=== PATIENT | female | born 1985 | race Caucasian/White ===

== ENCOUNTER 2016-07-30 08:32 | Emergency (ER) | payer MEDICAID, OTHER ==
[2016-07-30 08:42] VITALS: BP 132/84
--- NOTE | 2016-07-30 09:32 | ED ---
GI/ HPI - HPI Summary HPI Summary: Patient presents with UTI symptoms of burning with urination, increased frequency and low back pain that began 4 days ago and have not improved with increased fluid intake. She denies fever, chills, N/V/D, but does have low back pain. She has a history of UTI and this feels like her previous symptoms. - History of Current Complaint Chief Complaint: EDUrogenitalProblems Time Seen by Provider: 07/30/16 08:57 Stated Complaint: POSS UTI Hx Obtained From: Patient Onset/Duration: Started Days Ago - 4 Timing: Constant Severity: Mild Current Severity: Moderate Pain Intensity: 3 Pain Characteristics: Dull Associated Signs and Symptoms: Positive: Back Pain - low bilateral - Allergy/Home Medications Allergies/Adverse Reactions: Allergies Allergy/AdvReac Type Severity Reaction Status Date / Time No Known Allergies Allergy Verified 03/16/16 11:43 PMH/Surg Hx/FS Hx/Imm Hx Endocrine/Hematology History: Denies: Hx Diabetes, Hx Thyroid Disease Cardiovascular History: Denies: Hx Congestive Heart Failure, Hx Deep Vein Thrombosis, Hx Hypertension , Hx Myocardial Infarction, Hx Pacemaker/ICD, Other Cardiovascular Problems/ Disorders Respiratory History: Reports: Hx Asthma - childhood asthma, recurred 3 yrs ago after of son Denies: Hx Chronic Obstructive Pulmonary Disease (COPD), Hx Lung Cancer, Hx Pneumonia, Hx Pulmonary Embolism GI History: Denies: Hx Gall Bladder Disease, Hx Gastrointestinal Bleed, Hx Ulcer, Hx Urosepsis History: Denies: Hx Kidney Stones, Hx Renal Disease Neurological History: Denies: Hx Dementia, Hx Migraine, Hx Seizures, Hx Transient Ischemic Attacks (TIA) Psychiatric History: Reports: Hx Anxiety, Hx Bipolar Disorder Denies: Hx Depression, Hx Schizophrenia - Surgical History Surgery Procedure, Year, and Place: csection x3. [place] Infectious Disease History: No Infectious Disease History: Reports: Hx of Known/Suspected MRSA - axilla 2011 Denies: Hx Clostridium Difficile, Hx Hepatitis, Hx Human Immunodeficiency Virus (HIV), Hx Shingles, Hx Tuberculosis, Traveled Outside the [place] in Last 30 Days - Family History Known Family History: Positive: None Negative: Cardiac Disease, Hypertension, Diabetes - Social History Occupation: Employed Full-time Lives: With Family Alcohol Use: None Substance Use Type: Reports: Marijuana Substance Use Comment - Amount & Last Used: RARE Smoking Status (MU): Never Smoked Tobacco Review of Systems Negative: Fever, Chills Negative: Abdominal Pain, Vomiting, Diarrhea, Nausea Positive: burning, frequency Positive: Myalgia - low back pain All Other Systems Reviewed And Are Negative: Yes Physical Exam Triage Information Reviewed: Yes Vital Signs On Initial Exam: Initial Vitals Temp Pulse Resp BP Pulse Ox 98.4 F 105 16 132/84 99 07/30/16 08:38 07/30/16 08:38 07/30/16 08:38 07/30/16 08:38 07/30/16 08:38 Vital Signs Reviewed: Yes Appearance: Positive: Well-Appearing, No Pain Distress, Obese Skin: Positive: Warm, Skin Color Reflects Adequate Perfusion, Dry, Soft Head/Face: Positive: Normal Head/Face Inspection Eyes: Positive: EOMI, VIJAY, Conjunctiva Clear ENT: Positive: Hearing grossly normal Respiratory/Lung Sounds: Positive: Breath Sounds Present Cardiovascular: Positive: RRR Abdomen Description: Positive: Nontender, Soft. Negative: CVA Tenderness (R), CVA Tenderness (L), Distended, Guarding Musculoskeletal: Positive: Strength/ROM Intact. Negative: Edema Left, Edema Right Neurological: Positive: Sensory/Motor Intact, Alert, Oriented to Person Place, Time, NV Bundle Intact Distally Psychiatric: Positive: Affect/Mood Appropriate AVPU Assessment: Alert Diagnostics - Vital Signs Vital Signs Temp Pulse Resp BP Pulse Ox 07/30/16 08:38 98.4 F 105 16 132/84 99 - Laboratory Lab Statement: Any lab studies that have been ordered have been reviewed, and results considered in the medical decision making process. GIGU Course/Dx - Diagnoses Differential Diagnoses - Female: Cystitis, Dehydration, , Renal Colic, Urinary Tract Infection Provider Diagnoses: UTI (urinary tract infection) Discharge - Discharge Plan Condition: Stable Disposition: HOME Prescriptions: Ciprofloxacin TAB* [Cipro Tab*] 500 mg PO BID #9 tab Patient Education Materials: Urinary Tract Infection in Women (ED) Referrals: David Grant NP [Primary Care Provider] - Additional Instructions: Please use medication until it is completely gone. Return to the emergency department if your symptoms worsen.
[2016-07-30 10:07] LABS: Urine Bacteria 1+ (Absent); Urine Bilirubin 1+ (Negative); Urine Glucose Negative (Negative); Urine Nitrite Positive (Negative)
[2016-07-30] MEDS ORDERED: Ciprofloxacin TAB* 500 MG PO ONE (10:16)
--- NOTE | 2016-08-01 08:16 | ED ---
Progress - Progress Note Progress Note: Pt's urine cx reveals e. coli - pt was placed on cipro - no change in medication unless sens reveals otherwise. Course/Dx - Diagnoses Provider Diagnoses: UTI (urinary tract infection) Addendum entered and electronically signed by Rachel Francisco PA 08/02/16 15:26: ED Addendum Addendum: Sens reveals cipro is effective - complete course
== END 2016-07-30 11:01 | disposition home or self-care (01) ==
LOC: ED 08:32
DX: N39.0 Urinary tract infection, site not specified (principal); M54.5 Low back pain; R30.0 Dysuria; R35.0 Frequency of micturition
CPT/HCPCS: 81003; 81015; 87077; 87086; 87186; 99282; A9270-GY

== ENCOUNTER 2016-10-11 19:56 | Emergency (ER) | payer MEDICAID ==
[2016-10-11] MEDS ORDERED: Metoclopramide IV* 5 MG/ML 2 ML VIAL IV ONE (21:18)
[2016-10-11] MEDS ORDERED: NS 0.9% 1000 ML* 2,000 ML IV ONE (21:18)
[2016-10-11] MEDS ORDERED: Ketorolac INJ* 30 MG/ML 1 ML VIAL IV ONE (21:18)
[2016-10-11] MEDS ORDERED: diPHENhydraMINE IV* 50 MG/ML 1 ml VIAL (BENADRYL) IV ONE (21:18)
[2016-10-11 21:25] LABS: Hematocrit 37 % (35-47); Hemoglobin 12.2 g/dl (12.0-16.0); Mean Corpuscular HGB Conc 33 g/dl (31-36); Mean Corpuscular Hemoglobin 29 pg (27-31); Mean Corpuscular Volume 88 fL (80-97); Mean Platelet Volume 9 um3 (7.4-10.4); Red Blood Count 4.25 10^6/ul (4.0-5.4); Red Cell Distribution Width 14 % (10.5-15); White Blood Count 7.7 10^3/ul (3.5-10.8)
[2016-10-11 21:40] LABS: Albumin 3.9 g/dL (3.2-5.2); BUN/Creatinine Ratio 17.7 (8-20); Calcium 8.5 mg/dL (8.6-10.3); EGFR African American 145.4 (>60); Globulin 2.4 g/dL (2-4); Potassium 3.7 mmol/L (3.5-5.0); Total Bilirubin 0.2 mg/dL (0.2-1.0); Total Protein 6.3 g/dL (6.4-8.9)
--- NOTE | 2016-10-11 22:09 | ED ---
Headache - HPI Summary HPI Summary: Patient presents with a headache that is like her typical migraine. She awoke with the pain behind her left eye and ibuprofen and rest did not make it better. She has not had a migraine in awhile so she doesn't have her sumatriptan anymore. She feels nauseous but has been able to eat and drink today. She denies fever, chills, neck stiffness or pain. - History Of Current Complaint Chief Complaint: EDHeadache Stated Complaint: MIGRAINE/NAUSEA/PRESSURE BEHIND LEFT EYE Time Seen by Provider: 10/11/16 20:34 Hx Obtained From: Patient Hx Last Menstrual Period: 04/02/16 Onset/Duration: Gradual Onset Initially Headache Was: Mild Currently Pain Is: Moderate Timing: Constant Character: Pressure, Typical Headache, Migraine Location of Headache: Temporal - left Aggravating Factor: Bright Lights Allevating Factors: Nothing Associated Signs And Symptoms: Nausea Related History: Similar Episode/DX As: - history of migraines - Allergies/Home Medications Allergies/Adverse Reactions: Allergies Allergy/AdvReac Type Severity Reaction Status Date / Time No Known Allergies Allergy Verified 10/11/16 20:23 PMH/Surg Hx/FS Hx/Imm Hx Endocrine/Hematology History: Denies: Hx Diabetes, Hx Thyroid Disease Cardiovascular History: Denies: Hx Congestive Heart Failure, Hx Deep Vein Thrombosis, Hx Hypertension , Hx Myocardial Infarction, Hx Pacemaker/ICD, Other Cardiovascular Problems/ Disorders Respiratory History: Reports: Hx Asthma - childhood asthma, recurred 3 yrs ago after of son Denies: Hx Chronic Obstructive Pulmonary Disease (COPD), Hx Lung Cancer, Hx Pneumonia, Hx Pulmonary Embolism GI History: Denies: Hx Gall Bladder Disease, Hx Gastrointestinal Bleed, Hx Ulcer, Hx Urosepsis History: Denies: Hx Kidney Stones, Hx Renal Disease Neurological History: Reports: Hx Migraine Denies: Hx Dementia, Hx Seizures, Hx Transient Ischemic Attacks (TIA) Psychiatric History: Reports: Hx Anxiety, Hx Bipolar Disorder Denies: Hx Depression, Hx Schizophrenia - Surgical History Surgery Procedure, Year, and Place: csection x3. [place] Infectious Disease History: Yes Infectious Disease History: Reports: Hx of Known/Suspected MRSA - axilla 2011 Denies: Hx Clostridium Difficile, Hx Hepatitis, Hx Human Immunodeficiency Virus (HIV), Hx Shingles, Hx Tuberculosis, Traveled Outside the [place] in Last 30 Days - Family History Known Family History: Positive: None Negative: Cardiac Disease, Hypertension, Diabetes - Social History Occupation: Employed Full-time Lives: With Family Alcohol Use: None Substance Use Type: Reports: None, Marijuana Substance Use Comment - Amount & Last Used: RARE Smoking Status (MU): Light Every Day Tobacco Smoker Cessation Counseling: Patient Advised to Stop Review of Systems Negative: Fever, Chills Positive: Photophobia. Negative: Blurred Vision, Diplopia Positive: Nausea. Negative: Vomiting Positive: Headache. Negative: Weakness, Paresthesia, Numbness All Other Systems Reviewed And Are Negative: Yes Physical Exam Triage Information Reviewed: Yes Vital Signs On Initial Exam: Initial Vitals Temp Pulse Resp BP Pulse Ox 97.6 F 88 20 114/71 100 10/11/16 20:20 10/11/16 20:20 10/11/16 20:20 10/11/16 20:20 10/11/16 20:20 Vital Signs Reviewed: Yes Appearance: Positive: Well-Appearing, Pain Distress, Obese Skin: Positive: Warm, Skin Color Reflects Adequate Perfusion, Dry, Soft Head/Face: Positive: Normal Head/Face Inspection Eyes: Positive: EOMI, VIJAY, Conjunctiva Clear ENT: Positive: Hearing grossly normal, Pharynx normal Neck: Positive: Supple, Nontender, No Lymphadenopathy Respiratory/Lung Sounds: Positive: Clear to Auscultation, Breath Sounds Present Cardiovascular: Positive: RRR Abdomen Description: Positive: Nontender, Soft Bowel Sounds: Positive: Present Musculoskeletal: Negative: Edema Left, Edema Right Neurological: Positive: Sensory/Motor Intact, Alert, Oriented to Person Place, Time, CN Intact II-III, NV Bundle Intact Distally Psychiatric: Positive: Affect/Mood Appropriate AVPU Assessment: Alert - Ivel Coma Scale Coma Scale Total: 15 Diagnostics - Vital Signs Vital Signs Temp Pulse Resp BP Pulse Ox 10/11/16 20:51 97.9 F 78 16 116/69 98 10/11/16 20:20 97.6 F 88 20 114/71 100 - Laboratory Lab Results: Lab Results 10/11/16 10/11/16 Range/Units 21:15 21:15 WBC 7.7 (3.5-10.8) 10^3/ul RBC 4.25 (4.0-5.4) 10^6/ul Hgb 12.2 (12.0-16.0) g/dl Hct 37 (35-47) % MCV 88 (80-97) fL MCH 29 (27-31) pg MCHC 33 (31-36) g/dl RDW 14 (10.5-15) % Plt Count 269 (150-450) 10^3/ul MPV 9 (7.4-10.4) um3 Neut % (Auto) 47.1 (38-83) % Lymph % (Auto) 36.5 (25-47) % [place] % (Auto) 11.4 H (1-9) % Eos % (Auto) 4.0 (0-6) % Baso % (Auto) 1.0 (0-2) % Absolute Neuts (auto) 3.6 (1.5-7.7) 10^3/ul Absolute Lymphs (auto) 2.8 (1.0-4.8) 10^3/ul Absolute Monos (auto) 0.9 H (0-0.8) 10^3/ul Absolute Eos (auto) 0.3 (0-0.6) 10^3/ul Absolute Basos (auto) 0.1 (0-0.2) 10^3/ul Absolute Nucleated RBC 0.01 10^3/ul Nucleated RBC % 0.1 Sodium 138 (133-145) mmol/L Potassium 3.7 (3.5-5.0) mmol/L Chloride 108 (101-111) mmol/L Carbon Dioxide 26 (22-32) mmol/L Anion Gap 4 (2-11) mmol/L BUN 11 (6-24) mg/dL Creatinine 0.62 (0.51-0.95) mg/dL Est GFR ( Amer) 145.4 (>60) Est GFR (Non-Af Amer) 113.0 (>60) BUN/Creatinine Ratio 17.7 (8-20) Glucose 102 H (70-100) mg/dL Calcium 8.5 L (8.6-10.3) mg/dL Total Bilirubin 0.20 (0.2-1.0) mg/dL AST 9 L (13-39) U/L ALT 6 L (7-52) U/L Alkaline Phosphatase 69 (34-104) U/L Total Protein 6.3 L (6.4-8.9) g/dL Albumin 3.9 (3.2-5.2) g/dL Globulin 2.4 (2-4) g/dL Albumin/Globulin Ratio 1.6 (1-3) Result Diagrams: 10/11/16 21:15 10/11/16 21:15 Lab Statement: Any lab studies that have been ordered have been reviewed, and results considered in the medical decision making process. Re-Evaluation - Re-Evaluation First Eval Re-Evaluation Time: 22:25 Change: Improved Comment: Patient is feeling better and will try to eat some food and drink. Headache Course/Dx - Diagnoses Differential Diagnosis/HQI/PQRI: TIA, Epidural Hematoma, Migraine, Sinus Headache, Tension Headache, Viral Syndrome Provider Diagnoses: Migraine Discharge - Discharge Plan Condition: Stable Disposition: HOME Patient Education Materials: Migraine Headache (ED) Referrals: aDvid Grant NP [Primary Care Provider] - Additional Instructions: Please follow-up with your primary care provider to discuss re-establishing a treatment plan for your migraines. Return to the emergency department if symptoms worsen.
[2016-10-11] MEDS ORDERED: SUMAtriptan TAB* 100 MG PO ONE (22:51)
[2016-10-11 23:09] VITALS: BP 92/49
== END 2016-10-11 23:24 | disposition home or self-care (01) ==
LOC: ED 19:56
DX: G43.909 Migraine, unspecified, not intractable, without status migrainosus (principal); R11.0 Nausea; H53.149 Visual discomfort, unspecified
CPT/HCPCS: 36415; 80053; 85025; 96374; 96375; 99283; A9270-GY; J1200; J1885

== ENCOUNTER 2016-10-16 08:08 | Emergency (ER) | payer MEDICAID ==
[2016-10-16 08:17] VITALS: BP 144/91
[2016-10-16] MEDS ORDERED: Ibuprofen TAB* 800 MG PO ONE (08:51)
--- NOTE | 2016-10-16 08:56 | ED ---
HPI Cardiac - HPI Summary HPI Summary: Pt here w/ URI sx x 2+ days. Started as rhinorrhea 2 days ago then yesterday had sinus congestion - tried Sudafed w/o relief. PND has triggered her to cough - productive w/ blood tinged sputum and pt reports pain in Lt upper chest going into back w/ deep breath. She has h/o asthma - has used her albuterol HFA and has a neb at home - does not feel she needs a breathing tx at this time as she' s breathing well. Smokes a few cigarettes a day and marijuana daily. Lt ear pain and pressure as well. Denies fever, chills, N/V/D, neck pain, rash. - History of Current Complaint Chief Complaint: EDUpperRespComplaint Stated Complaint: COUGHING UP BLOOD/CHEST CONGESTION Time Seen by Provider: 10/16/16 08:41 Hx Obtained From: Patient Pain Intensity: 6 - Allergy/Home Medications Allergies/Adverse Reactions: Allergies Allergy/AdvReac Type Severity Reaction Status Date / Time No Known Allergies Allergy Verified 10/11/16 20:23 PMH/Surg Hx/FS Hx/Imm Hx Previously Healthy: Yes Endocrine/Hematology History: Denies: Hx Anticoagulant Therapy, Hx Blood Disorders, Hx Diabetes, Hx Thyroid Disease, Hx Unexplained Bleeding Cardiovascular History: Denies: Hx Congestive Heart Failure, Hx Deep Vein Thrombosis, Hx Hypertension , Hx Myocardial Infarction, Hx Pacemaker/ICD, Other Cardiovascular Problems/ Disorders Respiratory History: Reports: Hx Asthma - childhood asthma, recurred 3 yrs ago after of son Denies: Hx Chronic Obstructive Pulmonary Disease (COPD), Hx Lung Cancer, Hx Pneumonia, Hx Pulmonary Embolism GI History: Denies: Hx Gall Bladder Disease, Hx Gastrointestinal Bleed, Hx Ulcer, Hx Urosepsis History: Reports: Other Problems/Disorders - Essure in place Denies: Hx Kidney Stones, Hx Renal Disease Neurological History: Reports: Hx Migraine Denies: Hx Dementia, Hx Seizures, Hx Transient Ischemic Attacks (TIA) Psychiatric History: Reports: Hx Anxiety, Hx Bipolar Disorder Denies: Hx Depression, Hx Schizophrenia - Surgical History Surgery Procedure, Year, and Place: csection x3. [place] Infectious Disease History: No Infectious Disease History: Reports: Hx of Known/Suspected MRSA - axilla 2011 Denies: Hx Clostridium Difficile, Hx Hepatitis, Hx Human Immunodeficiency Virus (HIV), Hx Shingles, Hx Tuberculosis, Traveled Outside the [place] in Last 30 Days - Family History Known Family History: Positive: Diabetes, Other - cancer Negative: Cardiac Disease, Hypertension - Social History Occupation: Unemployed Lives: With Family - son Alcohol Use: None Alcohol Amount: "I don't like ETOH" Hx Substance Use: Yes Substance Use Type: Reports: Marijuana - daily Substance Use Comment - Amount & Last Used: RARE Hx Tobacco Use: Yes Smoking Status (MU): Current Every Day Smoker Amount Used/How Often: "a few a day" Review of Systems Negative: Fever, Chills Negative: Drainage, Erythema ENT: Other - see HPI Positive: Ear Ache, Nasal Discharge Positive: Chest Pain - see HPI Positive: Cough - see HPI. Negative: Shortness Of Breath Gastrointestinal: Negative Positive: no symptoms reported Musculoskeletal: Negative Negative: Rash Neurological: Negative Psychological: Normal All Other Systems Reviewed And Are Negative: Yes Physical Exam Triage Information Reviewed: Yes Vital Signs On Initial Exam: Initial Vitals Temp Pulse Resp BP Pulse Ox 98.6 F 103 16 144/91 99 10/16/16 08:15 10/16/16 08:15 10/16/16 08:15 10/16/16 08:15 10/16/16 08:15 Vital Signs Reviewed: Yes Appearance: Positive: Well-Appearing - appears mildly fatigued, No Pain Distress Skin: Positive: Warm, Dry Head/Face: Positive: Normal Head/Face Inspection - sinuses NTTP Eyes: Positive: Normal, EOMI. Negative: Conjunctiva Inflammed, Discharge ENT: Positive: Hearing grossly normal, Pharyngeal erythema - cobblestoning - no edema, no claudia bleeding, Nasal congestion, TM red - Lt TM w/ injection and air bubble - no hyperemia, no otorrhea, EAC clear - NTTP, Tonsillar swelling - +2. Negative: Nasal drainage, Tonsillar exudate, Muffled/hoarse voice Neck: Positive: Supple, Nontender, No Lymphadenopathy Respiratory/Lung Sounds: Positive: Breath Sounds Present, Rales - faint over Lt upper anterior chest wall. Negative: Rhonchi, Stridor, Wheezes Cardiovascular: Positive: Normal, Pulses are Symmetrical in both Upper and Lower Extremities, S1, S2. Negative: Murmur, Rub Abdomen Description: Positive: Soft Bowel Sounds: Positive: Present Musculoskeletal: Positive: Normal, Strength/ROM Intact Neurological: Positive: Normal, Sensory/Motor Intact, Alert, Oriented to Person Place, Time, CN Intact II-III Psychiatric: Positive: Normal - concerned Diagnostics - Vital Signs Vital Signs Temp Pulse Resp BP Pulse Ox 10/16/16 08:17 98.6 F 99 16 144/91 100 10/16/16 08:15 98.6 F 103 16 144/91 99 - Laboratory Lab Statement: Any lab studies that have been ordered have been reviewed, and results considered in the medical decision making process. Disposition - Diagnoses Provider Diagnoses: URI with cough and congestion, Bronchitis Discharge - Discharge Plan Condition: Stable Disposition: HOME Patient Education Materials: Upper Respiratory Infection (ED), Acute Bronchitis (ED) Referrals: David Grant, [employer] [Primary Care Provider] - Additional Instructions: You appear to have a viral URI. However with your history of smoking and asthma , an antibiotic has been prescribed to cover bacteria. Continue to use conservative therapies (See below) and follow-up with PCP if symptoms persist beyond 7-14 days. You were also found to have possible COPD on your CXR - this can be caused by smoking and improved by smoking cessation. It is very important that you follow-up with your PCP to further discuss. *If you have difficulty breathing, back pain, bloody cough, shortness of breath , return to ED Nasal wash (netti pot) & throat gargle 2 x day with 8 ounces of warm water + 1/ 4 teaspoon of salt Drink 60+ ounces of water daily Sleep 8+ hours per night Avoid Dairy and sugar Hot herbal/decaf tea with lemon & honey Chicken broth (preferably organic, free range chicken) Humidifier in house, but especially near bed at night Try a facial steam with or without eucalyptus essential oil Vicks vapor rub Cough drops Ibuprofen alternating with acetaminophen for pain, fever May continue Sudafed for decongestion Albuterol HFA and nebulizer as needed Anything you can do to stop smoking (both cigarettes and marijuana) will improve your symptoms and reduce recovery time Consider taking Vitamin D3 5,000iu and Vitamin C 1,000mg every day during illness Start probiotics in between and after completion of antibiotics (ie. Yogurt and/ or capsules of L. acidophilus, L. bifidus, L. casei, etc - make sure to get these from the refrigerated food section as they are live and active cultures)
--- NOTE | 2016-10-16 09:34 | RAD ---
INDICATION: Hemoptysis. Chest congestion. History of tobacco use. COMPARISON: April 05, [address] March 01, 2016 chest radiograph TECHNIQUE: Dual energy PA and routine lateral views of the chest were obtained. REPORT: Mildly elevated lung volumes and minimal prominence of interstitial markings. No alveolar consolidation, focal pulmonary lesion, pleural effusion, pneumothorax. The heart, pulmonary vasculature, and mediastinal contours are unremarkable. Unremarkable osseous structures. IMPRESSION: Potential obstructive lung disease. No evidence for pneumonia.
== END 2016-10-16 10:08 | disposition home or self-care (01) ==
LOC: ED 08:08
DX: J06.9 Acute upper respiratory infection, unspecified (principal); J40 Bronchitis, not specified as acute or chronic; F17.210 Nicotine dependence, cigarettes, uncomplicated; J45.909 Unspecified asthma, uncomplicated; F31.9 Bipolar disorder, unspecified; F41.9 Anxiety disorder, unspecified
CPT/HCPCS: 71020; 99281; A9270-GY

== ENCOUNTER 2016-10-18 08:34 | Emergency (ER) | payer MEDICAID ==
[2016-10-18] MEDS ORDERED: Albuterol/Ipratropium NEB.SOL* Albuterol 2.5 MG/Ipratropium 0.5 MG 3 ML INH ONE (09:19)
[2016-10-18] MEDS ORDERED: methylPREDNISolone SOD SUCC* 125 MG 2 ML VIAL IM ONE (09:20)
--- NOTE | 2016-10-18 09:50 | ED ---
HPI Cardiac - HPI Summary HPI Summary: Pt here w/ worsening of breathing sx - seen 2 days ago and dx'd w/ bronchitis. CXR was clear. Her productive cough is more clear but she reports chest tightness and difficulty moving phlegm despite taking zithromax and Robitussin DM. She has been using her albuterol HFA as well as albuterol nebulizer treatments as she has asthma and gets bronchitis 2 x year - spring and fall. Her Lt ear pain persists as well despite trying Sudafed and NSAID's. Denies fever, chills, N/V/D/. Has had steroids in the past and feels these would be helpful now. She follows w/ pulmonology through [facility]. - History of Current Complaint Chief Complaint: EDUpperRespComplaint Stated Complaint: CHEST CONGESTION/DIFF BREATHING Time Seen by Provider: 10/18/16 09:11 Hx Obtained From: Patient Pain Intensity: 3 - Allergy/Home Medications Allergies/Adverse Reactions: Allergies Allergy/AdvReac Type Severity Reaction Status Date / Time No Known Allergies Allergy Verified 10/11/16 20:23 PMH/Surg Hx/FS Hx/Imm Hx Previously Healthy: No - bronchitis dx'd 2 days ago Endocrine/Hematology History: Denies: Hx Anticoagulant Therapy, Hx Blood Disorders, Hx Diabetes, Hx Thyroid Disease, Hx Unexplained Bleeding Cardiovascular History: Denies: Hx Congestive Heart Failure, Hx Deep Vein Thrombosis, Hx Hypertension , Hx Myocardial Infarction, Hx Pacemaker/ICD, Other Cardiovascular Problems/ Disorders Respiratory History: Reports: Hx Asthma - childhood asthma, recurred 3 yrs ago after of son, Hx Chronic Obstructive Pulmonary Disease (COPD) - "bronchitis 2 x a year" + smoking and CXR + obstructive dz Denies: Hx Lung Cancer, Hx Pneumonia, Hx Pulmonary Embolism GI History: Denies: Hx Gall Bladder Disease, Hx Gastrointestinal Bleed, Hx Ulcer, Hx Urosepsis History: Reports: Other Problems/Disorders - Essure in place Denies: Hx Kidney Stones, Hx Renal Disease Neurological History: Reports: Hx Migraine Denies: Hx Dementia, Hx Seizures, Hx Transient Ischemic Attacks (TIA) Psychiatric History: Reports: Hx Anxiety, Hx Bipolar Disorder Denies: Hx Depression, Hx Schizophrenia - Surgical History Surgery Procedure, Year, and Place: csection x3. [place] Infectious Disease History: Yes Infectious Disease History: Reports: Hx of Known/Suspected MRSA - axilla 2011 Denies: Hx Clostridium Difficile, Hx Hepatitis, Hx Human Immunodeficiency Virus (HIV), Hx Shingles, Hx Tuberculosis, Traveled Outside the [place] in Last 30 Days - Family History Known Family History: Positive: Diabetes, Other - cancer Negative: Cardiac Disease, Hypertension - Social History Occupation: Unemployed Lives: With Family Alcohol Use: None Alcohol Amount: "I don't like ETOH" Hx Substance Use: Yes Substance Use Type: Reports: Marijuana Substance Use Comment - Amount & Last Used: RARE Hx Tobacco Use: Yes Smoking Status (MU): Current Every Day Smoker Amount Used/How Often: "a few a day" Review of Systems Negative: Fever, Chills Negative: Drainage, Erythema Positive: Ear Ache - see HPI Negative: Chest Pain Respiratory: Other - se HPI Gastrointestinal: Negative Positive: no symptoms reported Musculoskeletal: Negative Skin: Negative Neurological: Negative Psychological: Normal All Other Systems Reviewed And Are Negative: Yes Physical Exam Triage Information Reviewed: Yes Vital Signs On Initial Exam: Initial Vitals Temp Pulse Resp BP Pulse Ox 98.3 F 104 18 126/75 98 10/18/16 08:49 10/18/16 08:49 10/18/16 08:49 10/18/16 08:49 10/18/16 08:49 Vital Signs Reviewed: Yes Appearance: Positive: No Pain Distress - Appears mildly fatigued, coughing easily w/ speaking, Obese Skin: Positive: Warm, Dry Head/Face: Positive: Normal Head/Face Inspection Eyes: Positive: Normal, EOMI, Conjunctiva Clear. Negative: Conjunctiva Inflammed, Discharge ENT: Positive: Pharynx normal - cobblestoning, Nasal congestion - mild, Other - Lt TM w/ less erythema than 2 days ago but fluid appears to be building; Rt TM clear and flat. Negative: Nasal drainage, Tonsillar swelling, Tonsillar exudate Neck: Positive: Supple, Nontender Respiratory/Lung Sounds: Positive: Breath Sounds Present - distant, Wheezes - faint. Negative: Rales, Rhonchi, Stridor Cardiovascular: Positive: Normal, Tachycardia - mild, S1, S2. Negative: Murmur , Rub Bowel Sounds: Positive: Present Musculoskeletal: Positive: Normal, Strength/ROM Intact Neurological: Positive: Normal, Sensory/Motor Intact, Alert, Oriented to Person Place, Time, CN Intact II-III Psychiatric: Positive: Normal - concerned but pleasant Diagnostics - Vital Signs Vital Signs Temp Pulse Resp BP Pulse Ox 10/18/16 09:29 68 15 98 10/18/16 08:49 98.3 F 104 18 126/75 98 - Laboratory Lab Statement: Any lab studies that have been ordered have been reviewed, and results considered in the medical decision making process. Re-Evaluation - Re-Evaluation First Eval Change: Improved - breath sounds are easier to here - still wheezing, but is somewhat less - pt reports improved sx Disposition - Course Course Of Treatment: Advised pt to f/u w/ pulmonology this week to discuss further monitoring and treatment from this episode of asthma and COPD exacerbation. She reports a h/o bronchitis 2 x year, has asthma and CXR reveals obstructive findings - she was not aware she could have COPD and does not use any other treatments other than albuterol. Discussed that she may benefit from tx of COPD to better control her sx (ie. combivent, etc). 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 Reviewed danger s/sx of when to return to ED. - Diagnoses Provider Diagnoses: Acute exacerbation of COPD with asthma Discharge - Discharge Plan Condition: Stable Disposition: HOME Prescriptions: predniSONE TAB* [Deltasone TAB*] 60 mg PO DAILY #5 tab Patient Education Materials: Asthma (ED), COPD (Chronic Obstructive Pulmonary Disease) (ED) Referrals: Janice Guerrero MD [Medical Doctor] - Additional Instructions: Takes medications as directed. Follow-up with 8th grade teacher this week. Call tomorrow for appointment. Avoid triggers (ie, smoking, candles, air fresheners, perfumes, etc) *If you develop shortness of breath, difficulty breathing, intractable fever despite ibuprofen and acetaminophen, return to ED.
[2016-10-18 10:54] VITALS: BP 124/79
== END 2016-10-18 10:15 | disposition home or self-care (01) ==
LOC: ED 08:34
DX: J44.1 Chronic obstructive pulmonary disease with (acute) exacerbation (principal); H92.09 Otalgia, unspecified ear; F17.210 Nicotine dependence, cigarettes, uncomplicated; J45.998 Other asthma
CPT/HCPCS: 94640; 96372; 99282; A9270-GY; J2930

== ENCOUNTER 2017-02-12 12:21 | Emergency (ER) | payer OTHER ==
--- NOTE | 2017-02-12 12:39 | UC ---
Complaint Female HPI - HPI Summary HPI Summary: pain and burning with urination malodorus urine, no fevers chills nausea vomiting or back pain - History Of Current Complaint Chief Complaint: UCGU Stated Complaint: URINARY Time Seen by Provider: 02/12/17 12:28 Hx Obtained From: Patient Hx Last Menstrual Period: 04/02/16 ?: No Onset/Duration: Gradual Onset, Lasting Days, Still Present Timing: Constant Severity Initially: Mild Severity Currently: Moderate Pain Intensity: 4 Pain Scale Used: 0-10 Numeric Character: Burning Aggravating Factor(s): Urination Alleviating Factor(s): Nothing Associated Signs And Symptoms: Positive: Negative - Allergies/Home Medications Allergies/Adverse Reactions: Allergies Allergy/AdvReac Type Severity Reaction Status Date / Time No Known Allergies Allergy Verified 10/11/16 20:23 PMH/Surg Hx/FS Hx/Imm Hx Previously Healthy: No Psychological History: Anxiety, Bipolar Disorder, Post Traumatic Stress Disorder Other History Of: Negative For: HIV, Hepatitis B, Hepatitis C, Anticoagulant Therapy - Surgical History Surgical History: Yes Surgery Procedure, Year, and Place: csection x3. [place] - Family History Known Family History: Positive: Diabetes, Other - cancer Negative: Cardiac Disease, Hypertension - Social History Occupation: Unemployed Lives: With Family Alcohol Use: None Alcohol Amount: "I don't like ETOH" Substance Use Type: Marijuana Substance Use Comment - Amount & Last Used: RARE Smoking Status (MU): Current Every Day Smoker Amount Used/How Often: "a few a day" Household Exposure Type: Cigarettes Review of Systems Constitutional: Negative Skin: Negative Eyes: Negative ENT: Negative Respiratory: Negative Cardiovascular: Negative Gastrointestinal: Negative Genitourinary: Dysuria, Frequency, Urgency Motor: Negative Neurovascular: Negative Musculoskeletal: Negative Neurological: Negative Psychological: Anxious - denies HI/SI All Other Systems Reviewed And Are Negative: Yes Physical Exam Triage Information Reviewed: Yes Appearance: Well-Appearing, No Pain Distress, Well-Nourished Vital Signs Reviewed: Yes Eye Exam: Normal Eyes: Positive: Conjunctiva Clear ENT Exam: Normal ENT: Positive: Normal ENT inspection, Hearing grossly normal. Negative: Nasal congestion, Nasal drainage, Trismus, Muffled/hoarse voice Dental Exam: Normal Neck exam: Normal Neck: Positive: Supple, Nontender Respiratory Exam: Normal Respiratory: Positive: Chest non-tender, No respiratory distress, No accessory muscle use Cardiovascular Exam: Normal Cardiovascular: Positive: RRR, Pulses Normal, Brisk Capillary Refill Abdominal Exam: Normal Abdomen Description: Positive: Nontender, No Organomegaly, Soft. Negative: CVA Tenderness (R), CVA Tenderness (L) Bowel Sounds: Positive: Present Musculoskeletal Exam: Normal Musculoskeletal: Positive: Strength Intact, ROM Intact, No Edema Neurological Exam: Normal Neurological: Positive: Alert, Muscle Tone Normal Psychological Exam: Normal Psychological: Positive: Normal Response To Family Skin Exam: Normal Diagnostics - Laboratory Diagnostic Studies Completed/Ordered: ua +leukoesterace, + nitrites Complaint Female Dx - Course Course Of Treatment: increase fluids, bactrim, pyridium, vistaril follow with mental health clinic as planned, follow with pcp - Differential Dx/Diagnosis Differential Diagnosis/HQI/PQRI: , Renal Colic, Ureteral Stone, Urinary Tract Infection Provider Diagnoses: Uti, Anxiety Discharge - Discharge Plan Condition: Stable Disposition: HOME Prescriptions: Fluconazole 150 MG (NF) [Diflucan 150 mg (NF)] 150 mg PO ONCE #2 tab Phenazopyridine TAB* [Pyridium 100 mg TAB*] 100 mg PO TID #9 tab Sulfamethox/Trimethoprim DS* [Bactrim DS 800/160 TAB*] 1 tab PO BID #20 tab hydrOXYzine PAMOATE CAP* [Vistaril CAP*] 25 - 50 mg PO QID PRN #30 cap PRN Reason: anxiety Patient Education Materials: Phenazopyridine (By mouth), Urinary Tract Infection in Women (ED), Anxiety (ED) Referrals: David Grant, STATE PATROL OFFICER [Nurse Practitioner] - 2 Weeks Additional Instructions: Follow at [facility] as planned
[2017-02-12 12:43] VITALS: BP 118/75
== END 2017-02-12 13:06 | disposition home or self-care (01) ==
LOC: UCCORT 12:21
DX: N39.0 Urinary tract infection, site not specified (principal); F41.9 Anxiety disorder, unspecified; F31.9 Bipolar disorder, unspecified; F43.10 Post-traumatic stress disorder, unspecified; F12.90 Cannabis use, unspecified, uncomplicated; F17.210 Nicotine dependence, cigarettes, uncomplicated
CPT/HCPCS: 81003; 87077; 87086; 87186; 99212; G0463

== ENCOUNTER 2017-04-11 12:27 | Emergency (ER) | payer OTHER ==
[2017-04-11] MEDS ORDERED: Ipratropium 0.5MG/2.5ML NEB* 0.5 MG/2.5 ML NEB.SOLN INH ONE (12:50)
[2017-04-11] MEDS ORDERED: Albuterol 2.5 MG/3 ML NEB.SOL* (0.083%) INH ONE (12:50)
--- NOTE | 2017-04-11 12:52 | UC ---
Respiratory Complaint HPI - HPI Summary HPI Summary: 32 yo female was seen 3 days ago at [facility] er for wheezing started on 60 mg prednisone/.day and olga has duo nebs at home also has albuterol mdi state she has had astjma since being a kid no hospitalizations states she has never been hospitalized for asthma states she often requires prolonged high dose steroids for weeks followed by a prolonged taper smokes 1-2 cigs a day also complains she has been unable to remove her tampon - History of Current Complaint Chief Complaint: UCRespiratory Stated Complaint: SOB WHEEZING Time Seen by Provider: 04/11/17 12:37 Hx Obtained From: Patient Hx Last Menstrual Period: 04/04/17 Onset/Duration: Gradual Onset, Lasting Days Timing: Constant Severity Initially: Moderate Severity Currently: Moderate Pain Intensity: 3 Pain Scale Used: 0-10 Numeric Character: Cough: Productive Aggravating Factors: Exertion, Deep Breaths Alleviating Factors: Bronchodilator Associated Signs And Symptoms: Positive: Dyspnea Related History: Similar Episode/Dx as: - bronchitis - Allergies/Home Medications Allergies/Adverse Reactions: Allergies Allergy/AdvReac Type Severity Reaction Status Date / Time No Known Allergies Allergy Verified 10/11/16 20:23 Home Medications: Home Medications Azithromycin TAB* [Zithromax TAB (Doug-TESFAYE) 250 mg #6 tabs] 250 mg PO DAILY [History Confirmed 04/11/17] PMH/Surg Hx/FS Hx/Imm Hx Respiratory History: Asthma, Bronchitis Other History Of: Negative For: HIV, Hepatitis B, Hepatitis C, Anticoagulant Therapy - Surgical History Surgical History: Yes Surgery Procedure, Year, and Place: csection x3. [place] - Family History Known Family History: Positive: Diabetes, Other - cancer Negative: Cardiac Disease, Hypertension - Social History Alcohol Use: None Alcohol Amount: "I don't like ETOH" Substance Use Type: Marijuana Substance Use Comment - Amount & Last Used: RARE Smoking Status (MU): Current Every Day Smoker Amount Used/How Often: "a few a day" Household Exposure Type: Cigarettes Review of Systems Constitutional: Negative Skin: Negative Eyes: Negative ENT: Negative Respiratory: Shortness Of Breath, Cough Cardiovascular: Negative Gastrointestinal: Negative Genitourinary: Negative Motor: Negative Neurovascular: Negative Musculoskeletal: Negative Neurological: Negative Psychological: Negative Is Patient Immunocompromised?: No All Other Systems Reviewed And Are Negative: Yes Physical Exam Triage Information Reviewed: Yes Appearance: Well-Appearing, No Pain Distress, Well-Nourished Vital Signs: Initial Vital Signs Temp 98.3 F 04/11/17 12:33 Pulse 89 04/11/17 12:33 Resp 16 04/11/17 12:33 Pulse Ox 100 04/11/17 12:33 Vital Signs Reviewed: Yes Eyes: Positive: Conjunctiva Clear ENT: Positive: Hearing grossly normal. Negative: Nasal congestion, Nasal drainage, Tonsillar exudate, Trismus, Muffled/hoarse voice Neck: Positive: Supple, Nontender Respiratory: Positive: No respiratory distress, No accessory muscle use, Wheezing. Negative: Decreased breath sounds, Accessory muscle use Cardiovascular: Positive: RRR, No Murmur Musculoskeletal: Positive: ROM Intact, No Edema Neurological: Positive: Alert Psychological Exam: Normal Skin Exam: Normal UC Diagnostic Evaluation - Laboratory O2 Sat by Pulse Oximetry: 100 - normal/not hyhpoxic - Radiology Xray Interpretation: No Acute Changes Radiology Interpretation Completed By: Radiologist Re-Evaluation - Re-Evaluation First Eval Re-Evaluation Time: 13:56 Change: Improved Comment: still wheezing Respiratory Course/Dx - Course Course Of Treatment: tampon removed by Lacey Serrano MICROPHONE OPERATOR - Differential Dx/Diagnosis Provider Diagnoses: acute bronchitis with bronchospasm. retained tampon Discharge - Discharge Plan Condition: Stable Disposition: HOME Prescriptions: Amoxicillin PO (*) [Amoxicillin 875 MG (*)] 875 mg PO BID #14 tab Fluconazole 150 MG (NF) [Diflucan 150 mg (NF)] 150 mg PO ONCE #2 tab Prednisone 60 mg PO DAILY #9 tab Patient Education Materials: Acute Bronchitis (ED), Bronchospasm (ED) Forms: *Work Release Referrals: Non Staff,Doctor [Primary Care Provider] -
--- NOTE | 2017-04-11 13:08 | RAD ---
HISTORY: Cough, wheezing COMPARISONS: October 16, 2016 VIEWS: 4: Frontal dual-energy and lateral views of the chest. FINDINGS: CARDIOMEDIASTINAL SILHOUETTE: The cardiomediastinal silhouette is normal. SIM: The sim are normal. PLEURA: The costophrenic angles are sharp. No pleural abnormalities are noted. LUNG PARENCHYMA: The lungs are clear. ABDOMEN: The upper abdomen is clear. There is no subphrenic gas. BONES AND SOFT TISSUES: No bone or soft tissue abnormalities are noted. OTHER: None. IMPRESSION: NO ACTIVE CARDIOPULMONARY DISEASE.
[2017-04-11] MEDS ORDERED: methylPREDNISolone 125 MG* 2 ML VIAL IM ONE (13:51)
== END 2017-04-11 14:13 | disposition home or self-care (01) ==
LOC: UCEAST 12:27
DX: J20.9 Acute bronchitis, unspecified (principal); T19.2XXA Foreign body in vulva and vagina, initial encounter; X58.XXXA Exposure to other specified factors, initial encounter; Y93.9 Activity, unspecified; Y92.9 Unspecified place or not applicable; Z72.0 Tobacco use
CPT/HCPCS: 71020; 96372; 99212; G0463; J2930; J7644

== ENCOUNTER 2017-07-21 10:34 | Emergency (ER) | payer OTHER ==
[2017-07-21 10:48] VITALS: BP 135/83
[2017-07-21] MEDS ORDERED: Albuterol/Ipratropium NEB.SOL* Albuterol 2.5 MG/Ipratropium 0.5 MG 3 ML INH ONE (10:56)
--- OUTSIDE RECORDS SUMMARY | 2017-07-21 11:05 | XMS REPORT ---
:1985 External Reference #:[id number] Author Organization [facility] Address [address] [address] Phone [phone] Care Team Providers Name Role Phone Aime Palm MD Primary Care Physician Unavailable Payers Type Date Identification Numbers Payment Provider Subscriber Commercial Effective: Policy Number: Seun Michele 2017 [id number] Group Number: [id number] [address] PayID: [id number] [place] [address] Problems Date Description Provider Status Onset: 09/16/2016 Bipolar II disorder David Grant NP Active Onset: 09/16/2016 H/O: depression David Grant NP Active Onset: 09/16/2016 Posttraumatic stress disorder David Grant NP Active Onset: 08/30/2015 Disturbance in sleep behavior Janice Guerrero MD Active Onset: 01/04/2012 Migraine without aura, not Stephie Valle M.D. Active refractory Onset: 08/30/2015 Asthma without status Janice Guerrero MD Active asthmaticus Onset: 05/31/2012 Methicillin resistant Gage Potts M.D. Active Staphylococcus aureus Onset: 08/30/2015 Obesity Janice Guerrero MD Active Onset: 04/27/2012 Cellulitis Gage Potts M.D. Resolved Resolved: 09/17/2016 Onset: 03/03/2016 Exacerbation of asthma Janice Guerrero MD Resolved Resolved: 09/17/2016 Family History Date Family Member(s) Problem(s) Comments General Breast Cancer Father Unknown Mother Unknown Social History Type Date Description Comments Marital Status Single Lives With Son and daughter Occupation unemployed Smoking Patient is a current smoker, pack every 2 1/2 days smokes every day Daily Caffeine Consumes on average 3 sodas per day Daily Caffeine Consumes on average 2 cups of regular coffee per day Exercise Type/Frequency Does not exercise General Hx Text Allergies, Adverse Reactions, Alerts Date Description Reaction Status Severity Comments 10/22/2011 NKDA active Medications Medication Date Status Form Strength Qnty SIG Indications Ordering Provider Bactrim DS 06/23 Active Tablets 800-160mg 14tab one tab N39.0 s twice a Kapoor, day for [employer] 7 days Clonazepam 05/19 Active Tablets 0.5mg 90tab take 1 F41.9 s tablet Kapoor, up to 3 [employer] times daily as needed Proair HFA 05/19 Active Aerosol 108(90Bas 8.500 2 puffs e) gm four Kapoor, mcg/Act times a [employer] day as needed Nystatin 05/19 Active Powder 557489Upg 30uni topical B37.9 t/GM ts twice a Kapoor, day as [employer]ATOR needed No Active 05/19 Hx Unknown Medications /2016 - 05/19 Latuda 03/19 Hx Tablets 80mg take 1 tablet - by mouth 09/07 at /2017 bedtime Prednisone 03/09 Hx Tablets 10mg 42tab 30mg J45.901 s daily Yolanda, - for 1 MD 09/07 week, 20mg daily for 1 week, 10 mg daily for 1 week Ventolin HFA 03/03 Hx Aerosol 108(90Bas 8gm 1 unit J45.901 e) puff Yolanda, - mcg/Act every 6 05/19 hours needed Robitussin DM 03/03 Hx Syrup 100-10mg/ 236ml 5ml J45.901 Janice 5ML every Yolanda, - 4-6 hrs 05/19 needed for cough Azithromycin 08/26 Hx Tablets 250mg 6tabs 2 tab by J45.90Angela Stephie mouth Valle, - day 1 M.D. 02/26 then tab by mouth day 2-5 Singulair 08/26 Hx Tablets 10mg 90tab 1 by J45.901 s mouth Leonard, - every M.D. Loratadine 08/26 Hx Tablets 10mg 30tab 1 by J45.901 s mouth Leonard, - every M.D. Prednisone 08/15 Hx Tablets 20mg 60mg J45.41 daily - 03/09 Sertraline HCL 04/25 Hx Tablets 100mg 30tab 1 tab po F41.9 s every Valle, - day M.D. 08/26 Clonazepam 04/25 Hx Tablets 0.5mg 60tab take 1 F41.9 s tablet Leonard, - up to 2 M.D. 04/25 daily as needed Clonazepam 04/25 Hx Tablets 0.5mg 30tab take 1 F41.9 s tablet Leonard, - up to 2 M.D. 02/26 daily as needed Methylprednisolone 04/01 Hx Tablets 4mg 21tab take 6 J45.20 ( s tabs on Rivers, [employer]PERATOR - day 1, 5 04/25 tabs day 2, 4 tabs on day 3, 3 tabs on day 4, 2 tabs on day 5, 1 tab on day 6 Sertraline HCL 03/18 Hx Tablets 50mg 90tab 1 by F41.9 s mouth Silvestre, [employer]ATOR - every Alprazolam 03/18 Hx Tablets 0.25mg 90tab 1 by F41.9 s mouth Rivers, [employer]PERATOR - three 08/26 times day a day as needed anxiety Doxycycline Hyclate 03/18 Hx Capsules 100mg 14cap 1 tab by L03.011 s mouth Silvestre, [employer]ATOR - twice a 04/01 day x days Albuterol Sulfate 01/18 Hx Nebulizer (2.5mg/3M 1box 1 vial J45.20 L) 0.083% every 4 Leonard, - hour as M.D. 05/19 ans every 2 hour if needed J45.41 Escitalopram 01/18/2015 - Hx Tablets 10mg 30tabs 1 by mouth F41.9 Stephie Oxalate 03/18/2015 every day Darin Valle Clotrimazole 01/18/2015 - Hx Cream 1% 45gm apply 112.3 Stephie 04/01/2015 twice a Darin Valle day for 2-3 days as needed Nystop 01/18/2015 - Hx Powder 081280Zc 60units apply 112.3 Stephie 04/01/2015 it/GM twice a Darin Valle day Nebulizer 01/18/2015 - Hx Kit QS for use 4 J45.20 Stephie Kit/Tubing/Mouth 05/19/2017 times Darin Valle piece daily as needed R06.02 Dulera 01/14/2015 - Hx Aerosol 200-5mcg/Act 1units 2 puffs R06.02 Blaze Davies 05/19/2017 twice daily Darin Torres J45.41 Pulmicort Flexhaler 01/11/2015 Hx Aerosol 180mcg/Act 1units 2 puffs 786.05 Ethan - twice daily PRATIMA El 01/14/2015 Methylprednisolone 01/11/2015 Hx Tablets 4mg 1pack as directed 786.05 Ethan (Danilo) - PRATIMA El 01/18/2015 Sumatriptan 12/25/2014 Hx Tablets 50mg 8tabs take 1 346.10 David Succinate - tablet by Danish, 09/07/2016 mouth may [employer] repeat in 2 hours if headache unrelieved No Active 09/28/2014 Hx Unknown Medications - 09/28/2014 Methylprednisolone 09/28/2014 Hx Tablets 4mg 1pack as directed 493.00 Stephie (Danilo) Abimael Valle 12/24/2014 Darin Proair HFA 09/28/2014 Hx Aerosol 108(90Base) 1units 2 puffs by [id number] Blaze - mcg/Act mouth every E. 09/07/2016 4 hours as logan Torres M.D. J45.41 No Active 06/25/2014 - Hx Unknown Medications 06/25/2014 Fluconazole 06/25/2014 - Hx Tablets 150mg 2tabs take 1 tab 112.1 Zsofia 09/28/2014 po. may Mik, repeat in 3 [employer] days if still has symptoms. Clotrimazole 3 06/25/2014 - Hx Cream 2% QS use 1 112.1 Zsofia 09/28/2014 applicator Mik, twice daily [employer] for 5 days. Hydroxyzine 06/25/2014 - Hx Capsules 25mg 30cap Take 1 tab po 300.00 Zsofia Pamoate 09/28/2014 s hs as needed Mik, [employer] No Active 02/13/2014 - Hx Unknown Medications 02/13/2014 Citalopram 02/13/2014 - Hx Tablets 10mg 30tab 1 by mouth 311 Stephie Hydrobromide 06/25/2014 s every day Darin Valle Atrovent 07/26/2012 - Hx Solution 0.06% 1ml 2 sprays in 465.9 Briana 02/13/2014 each nostril Sandro, 4 times daily N.P. Bactrim DS 05/31/2012 - Hx Tablets 800-160mg 28tab 1 tab po bid V12.04 Gage 07/26/2012 ismael Potts M.D. Rifampin 05/31/2012 - Hx Capsules 300mg 28cap 2 po qd V12.04 Gage 07/26/2012 ismael Potts M.D. Topiramate 05/18/2012 - Hx Tablets 25mg 120ta 1 qhs for 1 Miguel Ángel S. 02/13/2014 bs week then 2 [place], qhs for 1 M.D. week then 3 qhs for 1 week then 4 qhs Doxycycline 04/27/2012 - Hx Capsules 100mg 36cap 1 cap po bid 682.8 Gage Hyclate 07/26/2012 s with food Von Potts M.D. Mupirocin 04/27/2012 - Hx Ointment 2% 1tube apply to both 682.8 Gage 07/26/2012 nostrils bid D. for 5 days Darin Potts Chlorhexidine 04/27/2012 - Hx Solution 2Bott wash from 682.8 Gage Gluconate 4% 07/26/2012 les neck down D. every other Katlyn, justo for 6 M.D. days Doxycycline 04/21/2012 - Hx Tablets DR 100mg 20tab 1 po 2x per V12.04 Stephie Hyclate 05/18/2012 s day 10 days Darin Valle Acetaminophen/Co 04/21/2012 - Hx Tablets 300-30mg 4tabs 1 tab po V12.04 Stephie deine #3 07/26/2012 every 6hours Leonard as needed for M.D. pain Doxycycline 02/02/2012 - Hx Tablets DR 100mg 28tab 1 po 2x per Eber Das Hyclate 04/21/2012 s day 14 days Von Fonseca M.D.,FACP Bactrim DS 01/28/2012 - Hx Tablets 800-160mg 20tab 1 po bid Uzma 03/26/2012 s Darin Rob Albuterol 12/28/2011 - Hx Nebulizer (2.5mg/3M 1box 1 vial every 466.0 Stephie Sulfate 02/02/2012 L) 0.083% 4 hour as logan Valle ans Darin every 2 hour if needed Medrol Dosepak 12/28/2011 - Hx Tablets 4mg 1tabs per 466.0 Stephie 01/04/2012 directions Darin Valle Amoxicillin/Clav 12/28/2011 - Hx Tablets 875-125mg 20tab 1 tab po 2x 466.0 Stephie ulanate 02/02/2012 s per day Osvaldo Valle M.D. Proventil HFA 12/28/2011 - Hx Aerosol 108(90Bas 1unit 1 puff every 466.0 Stephie 02/02/2012 e) mcg/ac s 4 hr and Leonard every 2 hr if M.D. needed Propranolol HCL - Hx Tablets 20mg 60tab 1 po bid Unknown 02/02/2012 s Iron - Hx qd Unknown 12/28/2011 Colace - Hx Capsules 100mg 60cap 1 po bid prn Unknown 12/28/2011 s Imitrex - Hx Tablets 25mg 18tab 1 po q 6 hrs. Unknown 05/18/2012 Unsure s prn migraines Dose Ibuprofen - Hx Tablets 400mg by mouth Unknown 08/27/2015 every 4 to 6 hours as needed Atrovent HFA - Hx Aerosol 17mcg/Act inhale 2 Unknown 08/27/2015 puffs 4 times daily Augmentin - Hx Tablets 875-125mg 1 tablet by Unknown 04/01/2015 mouth q12 hours for 10 days Ipratropium - Hx Solution 0.5-2.5(3 180ml 1 dose via J45.41 Blaze E. [place]/Albutero 05/19/2017 )mg/3ML nebulizer up bertrand Torres Sulfate to 4 times a M.D. day as needed for asthma Depakote - Hx Tablets DR 250mg 3 by mouth F31.9 Unknown 09/07/2016 every morning; Dr. Fallon Lorazepam - Hx Tablets 1mg 1 by mouth Unknown 03/02/2016 twice a day as needed Zofran - Hx Tablets 4mg 1 tab by R11.0 Unknown 09/07/2016 mouth every 6 hours as needed nausea F31.9 Ativan - Hx Tablets 0.5mg 1 tab po F41.9 Unknown 05/19/2017 bid; Dr. Fallon Zyprexa - Hx Tablets 15mg 30ta 1/2 tab po F31.9 David 05/19/2017 bs bid Danish, [employer]ATOR Meningococcal Active Injection Unknown B,Unspecified Immunizations CPT Code Status Date Vaccine Reaction Lot # [id number] Given 05/19/2017 Tdap - no reaction, pt [id number] Tetanus/Diptheria/Acellular tolerated well Pertussis 89660 Given 04/25/2015 Influenza Virus Vaccine, [id number] Quadrivalent, Split, Preservative Free 24028 Given 06/12/2014 Measles Mumps And Rubella [id number] MMR 06630 Given 06/12/2014 Flu Vaccine Split Virus [id number] Preservative Free For Indiv 3Yr Older 74837 Given 04/05/2012 Influenza Virus 3Yrs & Over Vital Signs Date Vital Result Comment 06/23/2017 Weight 184.00 lb Heart Rate 83 /min BP Systolic Sitting 122 mmHg BP Diastolic Sitting 83 mmHg Body Temperature 97.6 F O2 % BldC Oximetry 98 % 05/19/2017 Height 62 inches 5'2" Weight 184.00 lb Heart Rate 97 /min BP Systolic Sitting 130 mmHg BP Diastolic Sitting 76 mmHg Body Temperature 98.1 F O2 % BldC Oximetry 94 % BMI (Body Mass Index) 33.7 kg/m2 09/07/2016 Height 62 inches 5'2" Weight 173.00 lb Heart Rate 76 /min BP Systolic Sitting 130 mmHg BP Diastolic Sitting 100 mmHg Body Temperature 98.3 F O2 % BldC Oximetry 99 % BMI (Body Mass Index) 31.6 kg/m2 03/09/2016 Height 62 inches 5'2" Weight 170.00 lb Heart Rate 65 /min BP Systolic 130 mmHg BP Diastolic 76 mmHg Respiratory Rate 14 /min O2 % BldC Oximetry 98 % BMI (Body Mass Index) 31.1 kg/m2 03/03/2016 Heart Rate 85 /min BP Systolic 138 mmHg BP Diastolic 82 mmHg Respiratory Rate 14 /min Body Temperature 98.4 F O2 % BldC Oximetry 98 % 03/02/2016 Weight 165.50 lb Heart Rate 75 /min BP Systolic Sitting 128 mmHg BP Diastolic Sitting 78 mmHg Body Temperature 97.8 F O2 % BldC Oximetry 98 % 02/28/2016 Height 62 inches 5'2" Weight 173.38 lb Heart Rate 74 /min BP Systolic 100 mmHg BP Diastolic 62 mmHg Body Temperature 97.5 F O2 % BldC Oximetry 98 % BMI (Body Mass Index) 31.7 kg/m2 08/30/2015 Height 62 inches 5'2" Weight 200.00 lb Heart Rate 91 /min BP Systolic 122 mmHg BP Diastolic 86 mmHg Respiratory Rate 14 /min O2 % BldC Oximetry 98 % BMI (Body Mass Index) 36.6 kg/m2 Neck Circumference in inches 15 08/27/2015 Height 62 inches 5'2" Weight 199.00 lb Heart Rate 108 /min BP Systolic 120 mmHg BP Diastolic 84 mmHg Body Temperature 98.5 F O2 % BldC Oximetry 94 % BMI (Body Mass Index) 36.4 kg/m2 04/25/2015 Height 62 inches 5'2" Weight 207.00 lb Heart Rate 94 /min BP Systolic 138 mmHg BP Diastolic 90 mmHg BMI (Body Mass Index) 37.9 kg/m2 04/01/2015 Height 62 inches 5'2" Weight 208.00 lb Heart Rate 71 /min BP Systolic 114 mmHg BP Diastolic 74 mmHg Body Temperature 97.7 F O2 % BldC Oximetry 98 % BMI (Body Mass Index) 38.0 kg/m2 03/18/2015 Height 62 inches 5'2" Weight 202.00 lb Heart Rate 84 /min BP Systolic Sitting 142 mmHg BP Diastolic Sitting 86 mmHg Respiratory Rate 15 /min Body Temperature 98.0 F O2 % BldC Oximetry 98 % BMI (Body Mass Index) 36.9 kg/m2 01/18/2015 Weight 202.25 lb Heart Rate 87 /min BP Systolic Sitting 122 mmHg BP Diastolic Sitting 78 mmHg Body Temperature 97.9 F O2 % BldC Oximetry 97 % 01/14/2015 Height 62 inches 5'2" Weight 204.25 lb Heart Rate 61 /min BP Systolic Sitting 122 mmHg BP Diastolic Sitting 80 mmHg Respiratory Rate 20 /min Body Temperature 97.1 F O2 % BldC Oximetry 97 % BMI (Body Mass Index) 37.4 kg/m2 01/11/2015 Peak Flow Meter 425,375 01/11/2015 Height 62 inches 5'2" Weight 211.00 lb Heart Rate 75 /min BP Systolic 118 mmHg BP Diastolic 75 mmHg Body Temperature 98.1 F O2 % BldC Oximetry 98 % BMI (Body Mass Index) 38.6 kg/m2 12/25/2014 Height 62 inches 5'2" Weight 207.38 lb Heart Rate 78 /min BP Systolic Sitting 112 mmHg BP Diastolic Sitting 70 mmHg Body Temperature 97.8 F O2 % BldC Oximetry 98 % BMI (Body Mass Index) 37.9 kg/m2 09/28/2014 Weight 223.75 lb Heart Rate 95 /min BP Systolic Sitting 118 mmHg BP Diastolic Sitting 72 mmHg Respiratory Rate 18 /min Body Temperature 98.3 F Pain Level 1 O2 % BldC Oximetry 96 % 06/25/2014 Weight 223.50 lb Heart Rate 94 /min BP Systolic Sitting 126 mmHg BP Diastolic Sitting 79 mmHg Body Temperature 99.0 F 02/13/2014 Weight 236.00 lb Heart Rate 74 /min BP Systolic Sitting 124 mmHg BP Diastolic Sitting 80 mmHg 07/26/2012 Height 62 inches 5'2" Weight 246.00 lb Heart Rate 98 /min BP Systolic Sitting 118 mmHg BP Diastolic Sitting 80 mmHg Body Temperature 97.1 F O2 % BldC Oximetry 98 % BMI (Body Mass Index) 45.0 kg/m2 05/31/2012 Height 62 inches 5'2" Weight 245.00 lb BP Systolic 110 mmHg BP Diastolic 76 mmHg Respiratory Rate 16 /min Body Temperature 97.8 F BMI (Body Mass Index) 44.8 kg/m2 05/18/2012 Heart Rate 66 /min BP Systolic 120 mmHg BP Diastolic 80 mmHg Respiratory Rate 18 /min 04/27/2012 Height 63 inches 5'3" Weight 245.00 lb Heart Rate 72 /min BP Systolic 128 mmHg BP Diastolic 92 mmHg Respiratory Rate 16 /min Body Temperature 97.8 F BMI (Body Mass Index) 43.4 kg/m2 04/21/2012 Height 63 inches 5'3" Weight 245.00 lb Heart Rate 80 /min BP Systolic Sitting 116 mmHg BP Diastolic Sitting 64 mmHg Body Temperature 97.5 F BMI (Body Mass Index) 43.4 kg/m2 04/05/2012 Height 63 inches 5'3" Weight 248.00 lb Heart Rate 83 /min BP Systolic Sitting 112 mmHg BP Diastolic Sitting 70 mmHg BMI (Body Mass Index) 43.9 kg/m2 02/02/2012 Height 63 inches 5'3" Weight 243.00 lb Heart Rate 86 /min BP Systolic Sitting 110 mmHg BP Diastolic Sitting 70 mmHg Body Temperature 97.0 F BMI (Body Mass Index) 43.0 kg/m2 01/04/2012 Height 63 inches 5'3" Weight 235.00 lb Heart Rate 92 /min BP Systolic Sitting 110 mmHg BP Diastolic Sitting 78 mmHg O2 % BldC Oximetry 98 % BMI (Body Mass Index) 41.6 kg/m2 12/28/2011 Height 63 inches 5'3" Weight 235.00 lb Heart Rate 105 /min BP Systolic Sitting 108 mmHg BP Diastolic Sitting 76 mmHg Body Temperature 97.4 F O2 % BldC Oximetry 98 % BMI (Body Mass Index) 41.6 kg/m2 10/22/2011 Height 63 inches 5'3" Weight 229.00 lb Heart Rate 80 /min BP Systolic Sitting 118 mmHg L BP Diastolic Sitting 78 mmHg L BMI (Body Mass Index) 40.6 kg/m2 Results Test Date Test Result H/L Range Note Ua Routine 06/23/2017 Ua Specific [place] 1.020 1 Ua PH 6 1 Ua Color dark yellow 1 Ua Appera cloudy 1 Ua WBC + 1 Ua Protein trace 1 Ua Glucose normal 1 Ua Ketones negative 1 Ua Bilirubin negative 1 Ua Urobilinogen normal 1 Ua Nitrite POSITIVE!!!! 1 Ua Occult Blood trace 1 Comp Metabolic Panel 10/11/2016 Sodium 138 mmol/L 133-145 Potassium 3.7 mmol/L 3.5-5.0 Chloride 108 mmol/L 101-111 Co2 Carbon Dioxide 26 mmol/L 22-32 Anion Gap 4 mmol/L 2-11 Glucose 102 mg/dL High 70-100 Blood Urea Nitrogen 11 mg/dL 6-24 Creatinine 0.62 mg/dL 0.51-0.95 BUN/Creatinine Ratio 17.7 8-20 Calcium 8.5 mg/dL Low 8.6-10.3 Total Protein 6.3 g/dL Low 6.4-8.9 Albumin 3.9 g/dL 3.2-5.2 Globulin 2.4 g/dL 2-4 Albumin/Globulin Ratio 1.6 1-3 Total Bilirubin 0.20 mg/dL 0.2-1.0 Alkaline Phosphatase 69 U/L 34-104 Alt 6 U/L Low 7-52 Ast 9 U/L Low 13-39 Egfr Non- 113.0 >60 Egfr 145.4 >60 2 CBC Auto Diff 10/11/2016 White Blood Count 7.7 10^3/uL 3.5-10.8 Red Blood Count 4.25 10^6/uL 4.0-5.4 Hemoglobin 12.2 g/dL 12.0-16.0 Hematocrit 37 % 35-47 Mean Corpuscular Volume 88 fL 80-97 Mean Corpuscular Hemoglobin 29 pg 27-31 Mean Corpuscular HGB Conc 33 g/dL 31-36 Red Cell Distribution Width 14 % 10.5-15 Platelet Count 269 10^3/uL 150-450 Mean Platelet Volume 9 um3 7.4-10.4 Abs Neutrophils 3.6 10^3/uL 1.5-7.7 Abs Lymphocytes 2.8 10^3/uL 1.0-4.8 Abs Monocytes 0.9 10^3/uL High 0-0.8 Abs Eosinophils 0.3 10^3/uL 0-0.6 Abs Basophils 0.1 10^3/uL 0-0.2 Abs Nucleated RBC 0.01 10^3/uL Granulocyte % 47.1 % 38-83 Lymphocyte % 36.5 % 25-47 Monocyte % 11.4 % High 1-9 Eosinophil % 4.0 % 0-6 Basophil % 1.0 % 0-2 Nucleated Red Blood Cells % 0.1 Urinalysis Profile 07/30/2016 Urine Color [place] Urine Appearance Cloudy Urine Specific [place] 1.028 1.010-1.030 Urine pH 5.0 5-9 Urine Urobilinogen Negative Negative Urine Ketones Trace Negative Urine Protein 1+(30 mg/dL) Negative Urine Leukocytes Trace Negative Urine Blood Negative Negative * * Negative 3 Urine Nitrite Positive Negative Urine Bilirubin 1+ Negative Urine Glucose Negative Negative Urine White Blood Cell 1+(6-10/hpf) Absent Urine Red Blood Cell Absent Absent Urine Bacteria 1+ Absent Urine Squamous Epithelial Cell Present Absent Urine Calcium Oxalate Cryst Present Absent Urine Culture And 07/30/2016 Urine Culture SEE RESULT BELOW 4 Sensitivities Urine Culture And 04/05/2016 Urine Culture SEE RESULT BELOW 5 Sensitivities Laboratory test finding 04/05/2016 Lipase 6 U/L Low 11.0-82.0 C Reactive Protein < 1.00 mg/L < 5.00 6 HCG < 0.60 mIU/mL 7 Comp Metabolic Panel 04/05/2016 Sodium 137 mmol/L 133-145 Potassium 3.9 mmol/L 3.5-5.0 Chloride 107 mmol/L 101-111 Co2 Carbon Dioxide 23 mmol/L 22-32 Anion Gap 7 mmol/L 2-11 Glucose 94 mg/dL 70-100 Blood Urea Nitrogen 7 mg/dL 6-24 Creatinine 0.57 mg/dL 0.51-0.95 BUN/Creatinine Ratio 12.3 8-20 Calcium 9.0 mg/dL 8.6-10.3 Total Protein 7.2 g/dL 6.4-8.9 Albumin 4.4 g/dL 3.2-5.2 Globulin 2.8 g/dL 2-4 Albumin/Globulin Ratio 1.6 1-3 Total Bilirubin 0.40 mg/dL 0.2-1.0 Alkaline Phosphatase 66 U/L 34-104 Alt 12 U/L 7-52 Ast 12 U/L Low 13-39 Egfr Non- 124.5 >60 Egfr 160.2 >60 8 Urinalysis Profile 04/05/2016 Urine Color Yellow Urine Appearance Cloudy Urine Specific [place] 1.023 1.010-1.030 Urine pH 5.0 5-9 Urine Urobilinogen Negative Negative Urine Ketones Negative Negative Urine Protein Negative Negative Urine Leukocytes Trace Negative Urine Blood 2+ Negative * * Negative 9 Urine Nitrite Negative Negative Urine Bilirubin Negative Negative Urine Glucose Negative Negative Urine White Blood Cell Trace(0-5/hpf) Absent Urine Red Blood Cell 2+(6-10/hpf) Absent Urine Bacteria Absent Absent Urine Squamous Epithelial Cell Present Absent CBC Auto Diff 04/05/2016 White Blood Count 27.6 10^3/uL High 3.5-10.8 Red Blood Count 4.78 10^6/uL 4.0-5.4 Hemoglobin 13.6 g/dL 12.0-16.0 Hematocrit 42 % 35-47 Mean Corpuscular Volume 88 fL 80-97 Mean Corpuscular Hemoglobin 28 pg 27-31 Mean Corpuscular HGB Conc 32 g/dL 31-36 Red Cell Distribution Width 14 % 10.5-15 Platelet Count 400 10^3/uL 150-450 Mean Platelet Volume 9 um3 7.4-10.4 Abs Neutrophils 24.9 10^3/uL High 1.5-7.7 10 Abs Lymphocytes 1.0 10^3/uL 1.0-4.8 Abs Monocytes 1.4 10^3/uL High 0-0.8 Abs Eosinophils 0.2 10^3/uL 0-0.6 Abs Basophils 0.1 10^3/uL 0-0.2 Abs Nucleated RBC 0.01 10^3/uL Granulocyte % 90.4 % High 38-83 Lymphocyte % 3.6 % Low 25-47 Monocyte % 5.0 % 1-9 Eosinophil % 0.7 % 0-6 Basophil % 0.3 % 0-2 Nucleated Red Blood Cells % 0 CBC Auto Diff 04/05/2016 White Blood Count 18.5 10^3/uL High 3.5-10.8 Red Blood Count 4.15 10^6/uL 4.0-5.4 Hemoglobin 11.9 g/dL Low 12.0-16.0 Hematocrit 36 % 35-47 Mean Corpuscular Volume 88 fL 80-97 Mean Corpuscular Hemoglobin 29 pg 27-31 Mean Corpuscular HGB Conc 33 g/dL 31-36 Red Cell Distribution Width 14 % 10.5-15 Platelet Count 343 10^3/uL 150-450 Mean Platelet Volume 9 um3 7.4-10.4 Abs Neutrophils 15.0 10^3/uL High 1.5-7.7 Abs Lymphocytes 2.3 10^3/uL 1.0-4.8 Abs Monocytes 0.8 10^3/uL 0-0.8 Abs Eosinophils 0.2 10^3/uL 0-0.6 Abs Basophils 0.1 10^3/uL 0-0.2 Abs Nucleated RBC 0 10^3/uL Granulocyte % 81.1 % 38-83 Lymphocyte % 12.6 % Low 25-47 Monocyte % 4.4 % 1-9 Eosinophil % 1.3 % 0-6 Basophil % 0.6 % 0-2 Nucleated Red Blood Cells % 0 Urinalysis Profile 03/16/2016 Urine Color Yellow Urine Appearance Clear Urine Specific [place] 1.010 1.010-1.030 Urine pH 8.0 5-9 Urine Urobilinogen Negative Negative Urine Ketones Negative Negative Urine Protein Negative Negative Urine Leukocytes Negative Negative Urine Blood Negative Negative Urine Nitrite Negative Negative Urine Bilirubin Negative Negative Urine Glucose Negative Negative CBC Auto Diff 03/16/2016 White Blood Count 15.8 10^3/uL High 3.5-10.8 Red Blood Count 4.42 10^6/uL 4.0-5.4 Hemoglobin 12.4 g/dL 12.0-16.0 Hematocrit 38 % 35-47 Mean Corpuscular Volume 86 fL 80-97 Mean Corpuscular Hemoglobin 28 pg 27-31 Mean Corpuscular HGB Conc 33 g/dL 31-36 Red Cell Distribution Width 14 % 10.5-15 Platelet Count 327 10^3/uL 150-450 Mean Platelet Volume 9 um3 7.4-10.4 Abs Neutrophils 12.9 10^3/uL High 1.5-7.7 Abs Lymphocytes 1.9 10^3/uL 1.0-4.8 Abs Monocytes 0.8 10^3/uL 0-0.8 Abs Eosinophils 0 10^3/uL 0-0.6 Abs Basophils 0.1 10^3/uL 0-0.2 Abs Nucleated RBC 0.01 10^3/uL Granulocyte % 82.1 % 38-83 Lymphocyte % 12.1 % Low 25-47 Monocyte % 5.0 % 1-9 Eosinophil % 0.3 % 0-6 Basophil % 0.5 % 0-2 Nucleated Red Blood Cells % 0 Comp Metabolic Panel 03/16/2016 Sodium 138 mmol/L 133-145 Potassium 3.6 mmol/L 3.5-5.0 Chloride 108 mmol/L 101-111 Co2 Carbon Dioxide 24 mmol/L 22-32 Anion Gap 6 mmol/L 2-11 Glucose 99 mg/dL 70-100 Blood Urea Nitrogen 5 mg/dL Low 6-24 Creatinine 0.53 mg/dL 0.51-0.95 BUN/Creatinine Ratio 9.4 8-20 Calcium 9.1 mg/dL 8.6-10.3 Total Protein 6.5 g/dL 6.4-8.9 Albumin 4.1 g/dL 3.2-5.2 Globulin 2.4 g/dL 2-4 Albumin/Globulin Ratio 1.7 1-3 Total Bilirubin 0.40 mg/dL 0.2-1.0 Alkaline Phosphatase 76 U/L 34-104 Alt 9 U/L 7-52 Ast 11 U/L Low 13-39 Egfr Non- 135.4 >60 Egfr 174.2 >60 11 Laboratory test finding 03/02/2016 Lactic Acid 1.5 mmol/L 0.5-2.0 12 Urinalysis Profile 03/01/2016 Urine Color Yellow Urine Appearance Cloudy Urine Specific [place] 1.024 1.010-1.030 Urine pH 8.0 5-9 Urine Urobilinogen Positive Negative Urine Ketones 2+ Negative Urine Protein 1+(30 mg/dL) Negative Urine Leukocytes Trace Negative Urine Blood Negative Negative Urine Nitrite Positive Negative Urine Bilirubin Negative Negative Urine Glucose Negative Negative Urine White Blood Cell Trace(0-5/hpf) Absent Urine Red Blood Cell Trace(0-2/hpf) Absent Urine Bacteria 2+ Absent Urine Squamous Epithelial Cell Present Absent Urine Culture And 03/01/2016 Urine Culture SEE RESULT BELOW 13 Sensitivities CBC Auto Diff 03/01/2016 White Blood Count 11.7 10^3/uL High 3.5-10.8 Red Blood Count 5.09 10^6/uL 4.0-5.4 Hemoglobin 14.5 g/dL 12.0-16.0 Hematocrit 43 % 35-47 Mean Corpuscular Volume 85 fL 80-97 Mean Corpuscular Hemoglobin 28 pg 27-31 Mean Corpuscular HGB Conc 33 g/dL 31-36 Red Cell Distribution Width 13 % 10.5-15 Platelet Count 344 10^3/uL 150-450 Mean Platelet Volume 9 um3 7.4-10.4 Abs Neutrophils 6.7 10^3/uL 1.5-7.7 Abs Lymphocytes 3.1 10^3/uL 1.0-4.8 Abs Monocytes 1.0 10^3/uL High 0-0.8 Abs Eosinophils 0.8 10^3/uL High 0-0.6 Abs Basophils 0.1 10^3/uL 0-0.2 Abs Nucleated RBC 0 10^3/uL Granulocyte % 57.3 % 38-83 Lymphocyte % 26.2 % 25-47 Monocyte % 8.9 % 1-9 Eosinophil % 6.8 % High 0-6 Basophil % 0.8 % 0-2 Nucleated Red Blood Cells % 0 Comp Metabolic Panel 03/01/2016 Sodium 138 mmol/L 133-145 Potassium 3.6 mmol/L 3.5-5.0 Chloride 106 mmol/L 101-111 Co2 Carbon Dioxide 21 mmol/L Low 22-32 Anion Gap 11 mmol/L 2-11 Calcium 9.8 mg/dL 8.6-10.3 Albumin 4.6 g/dL 3.2-5.2 Alkaline Phosphatase 93 U/L 34-104 Alt 11 U/L 7-52 Ast 10 U/L Low 13-39 Glucose 94 mg/dL 70-100 Blood Urea Nitrogen 6 mg/dL 6-24 Creatinine 0.77 mg/dL 0.51-0.95 BUN/Creatinine Ratio 7.8 Low 8-20 Total Protein 8.2 g/dL 6.4-8.9 Globulin 3.6 g/dL 2-4 Albumin/Globulin Ratio 1.3 1-3 Total Bilirubin 0.70 mg/dL 0.2-1.0 Egfr Non- 88.0 >60 Egfr 113.2 >60 14 Laboratory test finding 03/01/2016 C Reactive Protein 6.98 mg/L High < 5.00 15 D Dimer Quantitative < 200 ng/mL Less Than 230 16 Laboratory test finding 2016 TSH (Thyroid Stim Horm) 0.78 mcIU/mL 0.34-5.60 Comp Metabolic Panel 2016 Sodium 138 mmol/L 133-145 Potassium 3.7 mmol/L 3.5-5.0 Chloride 108 mmol/L 101-111 Co2 Carbon Dioxide 21 mmol/L Low 22-32 Anion Gap 9 mmol/L 2-11 Glucose 114 mg/dL High 70-100 Blood Urea Nitrogen 7 mg/dL 6-24 Creatinine 0.62 mg/dL 0.51-0.95 BUN/Creatinine Ratio 11.3 8-20 Calcium 9.1 mg/dL 8.6-10.3 Total Protein 6.9 g/dL 6.4-8.9 Albumin 4.1 g/dL 3.2-5.2 Globulin 2.8 g/dL 2-4 Albumin/Globulin Ratio 1.5 1-3 Total Bilirubin 0.50 mg/dL 0.2-1.0 Alkaline Phosphatase 68 U/L 34-104 Alt 7 U/L 7-52 Ast 9 U/L Low 13-39 Egfr Non- 113.8 >60 Egfr 146.4 >60 17 CBC Auto Diff 2016 White Blood Count 15.6 10^3/uL High 3.5-10.8 Red Blood Count 4.60 10^6/uL 4.0-5.4 Hemoglobin 13.2 g/dL 12.0-16.0 Hematocrit 40 % 35-47 Mean Corpuscular Volume 86 fL 80-97 Mean Corpuscular Hemoglobin 29 pg 27-31 Mean Corpuscular HGB Conc 33 g/dL 31-36 Red Cell Distribution Width 13 % 10.5-15 Platelet Count 269 10^3/uL 150-450 Mean Platelet Volume 10 um3 7.4-10.4 Abs Neutrophils 12.3 10^3/uL High 1.5-7.7 Abs Lymphocytes 1.7 10^3/uL 1.0-4.8 Abs Monocytes 1.0 10^3/uL High 0-0.8 Abs Eosinophils 0.5 10^3/uL 0-0.6 Abs Basophils 0.1 10^3/uL 0-0.2 Abs Nucleated RBC 0.01 10^3/uL Granulocyte % 78.8 % 38-83 Lymphocyte % 10.9 % Low 25-47 Monocyte % 6.6 % 1-9 Eosinophil % 3.3 % 0-6 Basophil % 0.4 % 0-2 Nucleated Red Blood Cells % 0 Urinalysis Profile 07/14/2015 Urine Color Yellow Urine Appearance Cloudy Urine Specific [place] 1.016 1.010-1.030 Urine pH 7.0 5-9 Urine Urobilinogen Negative Negative Urine Ketones Trace Negative Urine Protein Negative Negative Urine Leukocytes Trace Negative Urine Blood Negative Negative Urine Nitrite Positive Negative Urine Bilirubin Negative Negative Urine Glucose Negative Negative Urine White Blood Cell 2+(11-20/hpf) Absent Urine Red Blood Cell Trace(0-2/hpf) Absent Urine Bacteria Absent Absent Urine Squamous Epithelial Cell Present Absent CBC Auto Diff 07/14/2015 White Blood Count 8.3 10^3/uL 3.5-10.8 Red Blood Count 4.87 10^6/uL 4.0-5.4 Hemoglobin 14.0 g/dL 12.0-16.0 Hematocrit 43 % 35-47 Mean Corpuscular Volume 89 fL 80-97 Mean Corpuscular Hemoglobin 29 pg 27-31 Mean Corpuscular HGB Conc 33 g/dL 31-36 Red Cell Distribution Width 14 % 10.5-15 Platelet Count 334 10^3/uL 150-450 Mean Platelet Volume 9 um3 7.4-10.4 Abs Neutrophils 4.7 10^3/uL 1.5-7.7 Abs Lymphocytes 2.2 10^3/uL 1.0-4.8 Abs Monocytes 0.7 10^3/uL 0-0.8 Abs Eosinophils 0.6 10^3/uL 0-0.6 Abs Basophils 0.1 10^3/uL 0-0.2 Abs Nucleated RBC 0 10^3/uL Granulocyte % 57.4 % 38-83 Lymphocyte % 26.0 % 25-47 Monocyte % 8.8 % 1-9 Eosinophil % 7.2 % High 0-6 Basophil % 0.6 % 0-2 Nucleated Red Blood Cells % 0 Comp Metabolic Panel 07/14/2015 Sodium 136 mmol/L 133-145 Potassium 3.8 mmol/L 3.5-5.0 Chloride 104 mmol/L 101-111 Co2 Carbon Dioxide 26 mmol/L 22-32 Anion Gap 6 mmol/L 2-11 Glucose 84 mg/dL 70-100 Blood Urea Nitrogen 8 mg/dL 6-24 Creatinine 0.63 mg/dL 0.51-0.95 BUN/Creatinine Ratio 12.7 8-20 Calcium 9.3 mg/dL 8.6-10.3 Total Protein 7.4 g/dL 6.4-8.9 Albumin 4.6 g/dL 3.2-5.2 Globulin 2.8 g/dL 2-4 Albumin/Globulin Ratio 1.6 1-3 Total Bilirubin 0.60 mg/dL 0.2-1.0 Alkaline Phosphatase 65 U/L 34-104 Alt 13 U/L 7-52 Ast 14 U/L 13-39 Egfr Non- 111.7 >60 Egfr 143.7 >60 18 Laboratory test finding 07/14/2015 Lipase 10 U/L Low 11.0-82.0 C Reactive Protein 1.13 mg/L < 5.00 19 Lactic Acid 0.8 mmol/L 0.5-2.0 20 HCG < 0.60 mIU/mL 21 Urine Culture And Sensitivities SEE RESULT BELOW 22 Order 01/11/2015 Peak Flow Before And 425 225 375 After Nebulizer Treatment Laboratory test finding 06/25/2014 Cytology RUN DATE: <SEE NOTE> Human Papilloma Virus Rna Negative Negative 24 Laboratory test finding 06/25/2014 Test Urine neg Laboratory test finding 10/16/2013 Throat Beta Strep (SEE NOTE) 25 Culture Rapid Strep A 10/16/2013 Rapid Strep A (SEE NOTE) 26 Wound Culture/Sensi 05/28/2012 Wound/Misc (SEE NOTE) 27 Culture-Gram Stain Wound Culture/Sensi 05/28/2012 Wound/Misc (SEE NOTE) 28 Culture-Gram Stain Laboratory test finding 04/21/2012 MRSA Culture Screen (SEE NOTE) 29 MRSA Screen 04/21/2012 MRSA Culture Screen (SEE NOTE) 30 (HCG) Urine 01/29/2012 Specific [place] 1.017 1.010-1.030 Urine NEGATIVE Negative 31 Laboratory test finding 01/04/2012 Thyroxine Free 0.85 ng/dL 0.61-1.24 TSH 1.05 MIU/ML 0.34-5.60 Culture And Sensitivity 12/05/2011 M <SEE NOTE> 32 1 urine had a strong foul smelling odor 2 Because ethnic data is not always readily available, this report includes an eGFR for both -Americans and non- Americans. The National Kidney Disease Education Program (NKDEP) does not endorse the use of the MDRD equation for patients that are not between the ages of 18 and 70, are , have extremes of body size, muscle mass, or nutritional status, or are non- or non-. According to the National Kidney Foundation, irrespective of diagnosis, the stage of the disease is based on the level of kidney function: Stage Description GFR(mL/min/1.73 m(2)) 1 Kidney damage with normal or decreased GFR 90 2 Kidney damage with mild decrease in GFR 60-89 3 Moderate decrease in GFR 30-59 4 Severe decrease in GFR 15-29 5 Kidney failure <15 (or dialysis) 3 *Ascorbic acid is present which may interfere with detection of blood. 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 ESCHERICHIA COLI M.I.C. RX --------- ------ Ampicillin >=32 R Cefazolin <=4 S Cefepime <=1 S Ceftriaxone <=1 S Ciprofloxacin <=0.25 S Gentamicin <=1 S Levofloxacin <=0.12 S Meropenem <=0.25 S Nitrofurantoin <=16 S Tetracycline <=1 S Pipercillin/Tazobactam <=4 S Trimethoprim/Sulfamethoxazole >=320 R Amoxicillin/Clavulanic Acid 8 S Aztreonam <=1 S Contact the Microbiology Department for any additional antibiotic reporting. * ML - MAIN LAB ([facility]) . END OF REPORT * ML=Testing performed at Main Lab DEPARTMENT OF PATHOLOGY, [address] [place] [address] Rj Andrews M.D. 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 END OF REPORT * ML=Testing performed at Main Lab DEPARTMENT OF PATHOLOGY, [address] [place] [address] Rj Andrews M.D. Director [facility] # [id number] 6 Acute inflammation: >10.00 7 <5.0 Negative 5.0 - 25.0 Indeterminate (Repeat testing recommended after 72 hours) >25.0 Positive Perimenopausal women can display HCG levels of up to 20 mIU/mL 8 Because ethnic data is not always readily available, this report includes an eGFR for both -Americans and non- Americans. The National Kidney Disease Education Program (NKDEP) does not endorse the use of the MDRD equation for patients that are not between the ages of 18 and 70, are , have extremes of body size, muscle mass, or nutritional status, or are non- or non-. According to the National Kidney Foundation, irrespective of diagnosis, the stage of the disease is based on the level of kidney function: Stage Description GFR(mL/min/1.73 m(2)) 1 Kidney damage with normal or decreased GFR 90 2 Kidney damage with mild decrease in GFR 60-89 3 Moderate decrease in GFR 30-59 4 Severe decrease in GFR 15-29 5 Kidney failure <15 (or dialysis) 9 *Ascorbic acid is present which may interfere with detection of blood. 10 Consistent with previous results on 03/22/16. 11 Because ethnic data is not always readily available, this report includes an eGFR for both -Americans and non- Americans. The National Kidney Disease Education Program (NKDEP) does not endorse the use of the MDRD equation for patients that are not between the ages of 18 and 70, are , have extremes of body size, muscle mass, or nutritional status, or are non- or non-. According to the National Kidney Foundation, irrespective of diagnosis, the stage of the disease is based on the level of kidney function: Stage Description GFR(mL/min/1.73 m(2)) 1 Kidney damage with normal or decreased GFR 90 2 Kidney damage with mild decrease in GFR 60-89 3 Moderate decrease in GFR 30-59 4 Severe decrease in GFR 15-29 5 Kidney failure <15 (or dialysis) 12 [facility] Severe Sepsis and Septic Shock Management Bundle Measure requires all lactic acids initially measuring >2.0 mmol/L be repeated. 13 SEE RESULT BELOW Name: ROBИРИНА L : [address]: Sen Tenorio DO Acct: [id number] Unit: [id number] AGE: 31 Location: ED Re03/01/16 SEX: F Status: DEP ER SPEC: [id number] JOSUE: 03/01/[address]: Aracely ESPINAL REQ: [id number] RECD: 03/01/16 STATUS: CHRISSY MORATAYA DR: Stephie Tenorio DO _ SOURCE: URINE SPDESC: ORDERED: Urine Culture Procedure Result Reported Site Urine Culture Final 03/03/16- 1015 ML No growth of clinically significant organisms * ML - MAIN LAB ([facility]) . END OF REPORT * ML=Testing performed at Main Lab DEPARTMENT OF PATHOLOGY, [address] [place] [address] Rj Andrews M.D. Director [facility] # [id number] 14 Because ethnic data is not always readily available, this report includes an eGFR for both -Americans and non- Americans. The National Kidney Disease Education Program (NKDEP) does not endorse the use of the MDRD equation for patients that are not between the ages of 18 and 70, are , have extremes of body size, muscle mass, or nutritional status, or are non- or non-. According to the National Kidney Foundation, irrespective of diagnosis, the stage of the disease is based on the level of kidney function: Stage Description GFR(mL/min/1.73 m(2)) 1 Kidney damage with normal or decreased GFR 90 2 Kidney damage with mild decrease in GFR 60-89 3 Moderate decrease in GFR 30-59 4 Severe decrease in GFR 15-29 5 Kidney failure <15 (or dialysis) 15 Acute inflammation: >10.00 16 Please note: The following may produce a false positive D Dimer test: - Rheumatoid factor greater than 60 IU/ml - Plasma hemoglobin greater than 0.05 gm/dl - Bilirubin greater than 50 mg/dl - Lipids greater than 1000 mg/dl - FDP greater than 20 ug/ml 17 Because ethnic data is not always readily available, this report includes an eGFR for both -Americans and non- Americans. The National Kidney Disease Education Program (NKDEP) does not endorse the use of the MDRD equation for patients that are not between the ages of 18 and 70, are , have extremes of body size, muscle mass, or nutritional status, or are non- or non-. According to the National Kidney Foundation, irrespective of diagnosis, the stage of the disease is based on the level of kidney function: Stage Description GFR(mL/min/1.73 m(2)) 1 Kidney damage with normal or decreased GFR 90 2 Kidney damage with mild decrease in GFR 60-89 3 Moderate decrease in GFR 30-59 4 Severe decrease in GFR 15-29 5 Kidney failure <15 (or dialysis) 18 Because ethnic data is not always readily available, this report includes an eGFR for both -Americans and non- Americans. The National Kidney Disease Education Program (NKDEP) does not endorse the use of the MDRD equation for patients that are not between the ages of 18 and 70, are , have extremes of body size, muscle mass, or nutritional status, or are non- or non-. According to the National Kidney Foundation, irrespective of diagnosis, the stage of the disease is based on the level of kidney function: Stage Description GFR(mL/min/1.73 m(2)) 1 Kidney damage with normal or decreased GFR 90 2 Kidney damage with mild decrease in GFR 60-89 3 Moderate decrease in GFR 30-59 4 Severe decrease in GFR 15-29 5 Kidney failure <15 (or dialysis) 19 Acute inflammation: >10.00 20 [place] Severe Sepsis and Septic Shock Management Bundle Measure requires all lactic acids initially measuring >2.0mmol/L be repeated. 21 <5.0 Negative 5.0 - 25.0 Indeterminate (Repeat testing recommended after 72 hours) >25.0 Positive Perimenopausal women can display HCG levels of up to 20 mIU/mL 22 SEE RESULT BELOW Name: ИРИНА MICHELE Bertrand : [address]: Richard Cortes MD Acct: [id number] Unit: [id number] AGE: 30 Location: ED Re07/14/15 SEX: F Status: DEP ER SPEC: [id number] JOSUE: 07/14/15-0 [facility] [address]: Anju Kwan MD REQ: [id number] RECD: 07/14/15 STATUS: CHRISSY MORATAYA DR: Stephie Valle MD _ SOURCE: URINE SPDESC: ORDERED: Urine Culture Procedure Result Reported Site Urine Culture Final 07/16/15- 822 ML Organism 1 ESCHERICHIA COLI Wy[place]x Count >100,000 (Many) CFU/ML 1. ESCHERICHIA COLI M.I.C. RX --------- ------ Ampicillin >=32 R Cefazolin <=4 S Cefepime <=1 S Ceftriaxone <=1 S Ciprofloxacin <=0.25 S Gentamicin <=1 S Levofloxacin 1 S Meropenem <=0.25 S Nitrofurantoin <=16 S Tetracycline >=16 R Pipercillin/Tazobactam <=4 S Trimethoprim/Sulfamethoxazole >=320 R Amoxicillin/Clavulanic Acid 8 S Aztreonam <=1 S Contact the Microbiology Department for any additional antibiotic reporting. * ML - [facility] ([facility]) . END OF REPORT * ML=Testing performed at Main Lab DEPARTMENT OF PATHOLOGY, [facility] [employer] [place] [id number] Rj Andrews M.D. Director [facility] # [id number] 23 RUN DATE: 06/26/14 [facility] LAB LIVE PAGE 1 RUN TIME: [address] [facility] [employer] [place], [place] [address] Specimen Inquiry Name: ИРИНА MICHELE : [address]: Sayra Houser NP Acct: [id number] Unit: [id number] AGE: 29 Location: [facility] Re06/25/14 SEX: F Status: REG REF SPEC: [id number] JOSUE: 06/25/[address]: Sayra Houser NP REQ: [id number] RECD: 06/25/14 STATUS: SOUT _ ORDERED: IMAGE ANALYSIS, HPV/Thin Prep FINAL DIAGNOSIS Negative for Intraepithelial lesion or Malignancy Reactive cellular changes associated with Inflammation (includes typical repair) Fungal organisms morphologically consistent with Mami species Shift in adilson suggestive of bacteria vaginosis A. Ectocervical/Endocervical Specimen Adequacy: Satisfactory of evaluation Transformation zone component identified Patient Information: HPV: High risk HPV RNA testing regardless of pap results. Actual Specimen Date: 06/25/14 LMP If Unknown: 5 wks ago ?: N Previous Abnormal Pap Smears?:N Other Pertinent History: candidiasis Date Time Test Result Flag (u) Normal Range 06/25/14 1522 HPV RNA Negative Negative The high-risk HPV types detected by the assay include: 16, 18, 31, 33, 35, 39, 45, 51, 52, 56, 58, 59, 66, and 68. Signed (signature on file) JOHN Negro([facility]) [id number] This Pap test was evaluated with the assistance of the OmniGuide Test Imaging System. Due to cytologic findings at the lozenge maker microscope, comprehensive manual rescreening by a Strategic Marketing Manager may be required. The Pap Smear is a screening test designed to aid in the detection of premalignant and malignant conditions of the uterine cervix. It is not a diagnostic procedure and should not be used as the sole means of detecting cervical cancer. Both false- positive and false- negative reports do occur. Depending on your risk status, a Pap smear should be obtained and evaluated every 1-3 years. END OF REPORT * ML=Testing performed at Main Lab DEPARTMENT OF PATHOLOGY, [place], [place] [address] RUN DATE: 06/26/14 [facility] LAB LIVE PAGE 1 RUN TIME: [address] [employer] [place], [place] [address] Specimen Inquiry Patient: CESAR MICHELELIDIA Wilder [id number] (Continued) Rj Andrews M.D. Director [facility] # [id number] 24 The high-risk HPV types detected by the assay include: 16, 18, 31, 33, 35, 39, 45, 51, 52, 56, 58, 59, 66, and 68. 25 RUN DATE: 10/18/13 [facility] LAB LIVE PAGE 1 RUN TIME: [address] [place] [address] Specimen Inquiry Name: ИРИНА MICHELE : [address]: Beto Bose Acct: [id number] Unit: [id number] AGE: 28 Location: ED Re10/16/13 SEX: F Status: DEP ER SPEC: [id number] JOSUE: 10/16/[address]: Beto Sarabia DO REQ: [id number] RECD: 10/16/13 STATUS: CHRISSY MORATAYA DR: Stephie Valle MD _ SOURCE: THROAT [facility]: ORDERED: Rapid Strep A, Throat Beta Str Procedure Result Verified Site Rapid Strep A Final 10/16/13- 741 ML Organism 1 Negative Strep Group A Antigen testing by enzyme immunoassay. The rehab nurse and regulatory agencies both recommend that a throat culture for beta strep be performed if a Rapid Group A Strep assay yields a negative result. Therefore a culture will be automatically performed on all negative samples. Throat Beta Strep Culture Final 10/18/13- 0844 ML Negative For Group A Beta Streptococcus END OF REPORT * ML=Testing performed at Main Lab DEPARTMENT OF PATHOLOGY, [address] [place] [address] Rj Andrews M.D. Director [facility] Permit #[id number] 26 RUN DATE: 10/16/13 [facility] LAB LIVE PAGE 1 RUN TIME: [address] [place] [address] Specimen Inquiry Name: ROBИРИНА Bertrand : [address]: Beto Bose Acct: [id number] Unit: [id number] AGE: 28 Location: ED Re10/16/13 SEX: F Status: REG ER SPEC: [id number] JOSUE: 10/16/[address]: Beto Sarabia DO REQ: [id number] RECD: 10/16/13 STATUS: RES MIKE DR: Stephie Valle MD _ SOURCE: THROAT SPDESC: ORDERED: Rapid Strep A, Throat Beta Str Procedure Result Verified Site Rapid Strep A Final 10/16/13- 0742 ML Organism 1 Negative Strep Group A Antigen testing by enzyme immunoassay. The rehab nurse and regulatory agencies both recommend that a throat culture for beta strep be performed if a Rapid Group A Strep assay yields a negative result. Therefore a culture will be automatically performed on all negative samples. Throat Beta Strep Culture PENDING END OF REPORT * ML=Testing performed at Main Lab DEPARTMENT OF PATHOLOGY, [facility] [place] [place] [address] Rj Andrews M.D. Director [facility] Permit #[id number] 27 RUN DATE: 05/30/12 [facility] LAB LIVE PAGE 1 RUN TIME: [address] [facility] [employer] [place], [place] [address] Specimen Inquiry Name: ROBИРИНА Bertrand : [address]: Jesse Ardon MD Acct: [id number] Unit: [id number] AGE: 27 Location: ED Re05/28/12 SEX: F Status: DEP ER SPEC: [id number] JOSUE: 05/28/[address]: Cristi ESPINAL REQ: [id number] RECD: 05/28/12 STATUS: CHRISSY [facility] DR: Leonard JARA,Stephie Ardon MD _ SOURCE: [facility]IA [facility]: ORDERED: Culture Stain COMMENTS: Comment: upper abscess Procedure Result Verified Site Wound/Misc Gram Stain Final 05/29/12- 0754 ML 4+ Polys 4+ Gram Positive Cocci Wound/Misc Culture Final 05/30/12- 1013 ML Organism 1 MRSA Quantity 3+ Consistent with previous results. 1. MRSA M.I.C. RX --------- ------ Penicillin >=0.5 R Clindamycin <=0.25 S Erythromycin >=8 R Gentamicin <=0.5 S Linezolid 2 S * Moxifloxacin 2 S Nitrofurantoin 32 S Oxacillin >=4 R * Quinupristin/Dalfopristin <=0.25 S Rifampin <=0.5 S Tetracycline <=1 S Doxycycline - Deduced S * Minocycline - Deduced S Trimethoprim/Sulfamethoxazole <=10 S CONTINUED ON NEXT PAGE * ML=Testing performed at Main Lab DEPARTMENT OF PATHOLOGY, [facility] [place] [place], [place] [address] Rj Andrews M.D. Director [facility] Permit #[id number] RUN DATE: 05/30/12 [facility] LAB LIVE PAGE 2 RUN TIME: [address] [facility] [employer] [place], [place] [address] Specimen Inquiry Patient: ROBИРИНА L [id number] (Continued) Specimen: [id number] Collected: 05/28/12 Received: 05/28/12 (Continued) Procedure Result Verified Site Wound/Misc Culture Final (continued) 05/30/12- 1012 1. MRSA (continued) M.I.C. RX --------- ------ Vancomycin 1 S Imipenem-Deduced R Ampicillin/Sulbactam-Deduced R Cefazolin-Deduced R * These antibiotics are not available in the [facility] Formulary Contact the Microbiology Department for any additional antibiotic reporting. END OF REPORT * ML=Testing performed at Main Lab DEPARTMENT OF PATHOLOGY, [facility] [place] [place] [address] Rj Andrews M.D. Director [facility] Permit #[id number] 28 RUN DATE: 05/30/12 [facility] LAB LIVE PAGE 1 RUN TIME: [address] [facility] [employer] [place], [place] [address] Specimen Inquiry Name: ИРИНА MICHELE : [address]: Jesse Ardon MD Acct: [id number] Unit: [id number] AGE: 27 Location: ED Re05/28/12 SEX: F Status: DEP ER SPEC: [id number] JOSUE: 05/28/[address]: Cristi ESPINAL REQ: [id number] RECD: 05/28/12 STATUS: CHRISSY MORATAYA DR: Leonard JARA,Stephie Ardon MD _ [facility] ORDERED: Culture Stain COMMENTS: Comment: lower abscess Procedure Result Verified Site Wound/Misc Gram Stain Final 05/29/12- 0759 ML 2+ Polys 2+ Gram Positive Cocci Wound/Misc Culture Final 05/30/12- 1014 ML Organism 1 MRSA Quantity 2+ Please refer to KIAN [id number] for sensitivity testing Consistent with previous results. END OF REPORT * ML=Testing performed at Main Lab DEPARTMENT OF PATHOLOGY, [facility] [place] [place], [place] [address] Rj Andrews M.D. Director [facility] Permit #[id number] 29 RUN DATE: 04/23/12 [facility] LAB LIVE PAGE 1 RUN TIME: [address] [facility] [employer] [place], [place] [address] Specimen Inquiry Name: ИРИНА MICHELE Bertrand : [address]: Stephie Valle MD Acct: [id number] Unit: [id number] AGE: 27 Location: [facility] Re04/21/12 SEX: F Status: REG REF SPEC: [id number] JOSUE: 04/21/[address]: Stephie Valle MD REQ: [id number] RECD: 04/21/12 STATUS: COMP _ SOURCE: NO SOURCE SPDESC: ORDERED: MRSA Cult Scrn COMMENTS: AXILLA Consistent with previous results. QUERIES: Medent Number [id number] Procedure Result Verified Site MRSA Culture Screen Final 04/23/12- 8714 ML Organism 1 MRSA END OF REPORT * ML=Testing performed at Main Lab DEPARTMENT OF PATHOLOGY, [facility] [place] [place], [place] [address] Rj Andrews M.D. Director [facility] Permit #[id number] 30 RUN DATE: 04/23/12 [facility] LAB LIVE PAGE 1 RUN TIME: [address] [facility] [employer] [place], [place] [address] Specimen Inquiry Name: ИРИНА MICHELE : [address]: Leonard JARA ,Stephie Villa Acct: [id number] Unit: [id number] AGE: 27 Location: [facility] Re04/21/12 SEX: F Status: REG REF SPEC: [id number] JOSUE: 04/21/[address] [facility] [address]: Stephie Valle MD REQ: [id number] RECD: 04/21/12 STATUS: COMP _ SOURCE: NASAL SPDESC: ORDERED: MRSA Cult Scrn QUERIES: Medent Number [id number] Procedure Result Verified Site MRSA Culture Screen Final 04/23/12- 1234 ML MRSA Screen No MRSA Isolated END OF REPORT * ML=Testing performed at Main Lab DEPARTMENT OF PATHOLOGY, [address] [place] [address] Rj Andrews M.D. Director [facility] Permit #[id number] If is still suspected, please repeat test after 48 to 72 hours. . This test detects intact HCG only and is indicated for the early detection of . 32 RUN DATE: 12/07/11 [facility] NMI LIVE PAGE 1 RUN TIME: 929 Specimen Inquiry RUN USER: INTERFACE Name: ИРИНА MICHELE Status: ZHAO MARTINEZ Re12/05/11 Age/Sex: 26/F Unit#: [id number] Location: [place] : 86 SPEC #: [id number] JOSUE: 12/05/11-1644 STATUS: CHRISSY RESiomara #: [id number] RECD: 12/05/[address]: [facility] SOURCE: WOUND ENTR: 12/05/[address]: Leonard JARA,Stephie Villa SPDESC: AXILLA,RIG ORDERED: CULT SENS/GS COMMENTS: COMMENTS: SKIN ABSCESS ACT WKST: B 12/07/11 #1 Procedure Result Verified Site > CULTURE SENSITIVITY Final -0930 ML Organism 1 METH RESIST S. AUREUS (MRSA) QUANTITY MODERATE 1. METH RESIST S. AUREUS (MRSA) RX M.I.C. ------ --------- RIFAMPIN S <=0.5 LEVOFLOXACIN I 4 TETRACYCLINE S <=1 CIPROFLOXACIN R >=8 CLINDAMYCIN S <=0.25 ERYTHROMYCIN R >=8 GENTAMICIN S <=0.5 * MOXIFLOXACIN S 1 TIGECYCLINE S <=0.12 OXACILLIN R >=4 LINEZOLID S 2 TRIMETH-SULFA S <=10 VANCOMYCIN S 1 +AMPICILLIN/SUBLACTAM R +IMIPENEM R +CEFAZOLIN R +These results are deduced according to CLSI guidelines as they are related to tested antimicrobials with almost identical spectrum of activity. *These antibiotics are not available in the [facility] Formulary. Contact the Microbiology Department for any additional antibiotic reporting. > GRAM STAIN SMEAR Final -0733 ML DEPARTMENT OF PATHOLOGY, [address] [place] [address] [facility] Permit #[id number] Darin Cowan M.D. Workers Compensation Examiner RUN DATE: 12/07/11 [facility] NMI LIVE PAGE 2 RUN TIME: 929 Specimen Inquiry RUN USER: INTERFACE Name: ИРИНА MICHELE Bertrand Status: DEP ER Re12/05/11 Age/Sex: 26/F Unit#: [id number] Location: [place]. : 86 -- -- CONTINU ED Procedure Result Verified Site GRAM STAIN SMEAR Final (continued) 12/06/11732 POLYS MANY SMEAR: MANY GRAM POSITIVE COCCI [facility] Permit #[id number] [address] [place] [id number] DEPARTMENT OF PATHOLOGY, [address] [place] [address] [facility] Permit #[id number] Rj Andrews M.D. Director Zulma Joy M.D. Workers Compensation Examiner Procedures Date CPT Code Description Status 01/04/2012 50498 Noninvasive Ear Or Pulse Oximetry For Oxygen Saturation Completed 12/28/2011 46221 Inhalation [place] For Acute Airway Obstruction Completed W/Nebulizer/Inhaler Encounters Type Date Location Provider CPT E/M Dx Office Visit 05/19/2017 8:30a [facility] [place] [address] F41.9 - [address] F50.9 Z23 B37.9 B37.2 Office Visit 09/07/2016 12:40p [facility] [place] [address] F43.10 F41.9 Office Visit 03/09/2016 10:30a [facility] [place] [address] J45.901 [facility] Office Visit 03/03/2016 8:00a [facility] [place] [address] J45.901 [facility] Office Visit 03/02/2016 11:40a [facility] [place] [address] J45.41 - [address] R11.0 Office Visit 02/28/2016 11:40a [facility] Internal Medicine Blaze Torres, [address] J45.909 - [place] Office Visit 08/30/2015 9:45a [facility] [place] [address] J45.909 Services [facility] G47.9 E66.09 Office Visit 08/27/2015 12:40p [facility] Internal Medicine Stephie Valle M.D. 985[address] J45.901 - [place] Office Visit 04/25/2015 3:20p [facility] Stephie Valle M.D. 70713 F41.9 - [place] M54.5 Z23 Office Visit 04/01/2015 9:00a [facility] [place] [address] F41.9 [place] J45.20 J45.21 Office Visit 03/18/2015 1:00p [facility] [place] [address] F41.9 [place] L03.011 Office Visit 01/18/2015 12:40p [facility] Medicine Stephie Valle M.D. 54315 493.00 - [place] 300.00 112.3 Office Visit 01/14/2015 1:00p [facility] [place] [address] 786.05 - [place] Office Visit 01/11/2015 2:00p [facility] [place] [address] 786.05 - [place] Office Visit 12/25/2014 11:00a [facility] [place] [address] 346.10 - [address] Office Visit 09/28/2014 2:00p [facility] Stephie Valle M.D. 80967 493.00 - [place] Office Visit 06/25/2014 3:00p [facility] Internal Medicine MARC Hassan [address] V72.31 - [place] 112.1 616.10 300.00 626.4 Office Visit 02/13/2014 1:40p [facility] Medicine Stephie Valle M.D. 02693 311 - [place] Office Visit 07/26/2012 12:30p [facility] Internal Medicine Briana Jo 635[address] 465.9 - [place] N.P. Office Visit 05/31/2012 11:30a [facility] Sonia [place] [address] V12.04 Infectious Diseases Darin Potts Office Visit 05/18/2012 2:30p [facility] Miguel Ángel [place], [address] 346.10 Services [facility] Darin Office Visit 04/27/2012 1:00p [facility] Gage [place] [address] 682.8 Infectious Diseases Darin Potts Office Visit 04/21/2012 4:40p [facility] Internal Medicine Stephie Valle M.D. 34610 V12.04 - [place] Office Visit 04/05/2012 4:40p [facility] Stephie Valle M.D. 72096 V04.81 - [place] V12.04 V70.0 V04.81 Office Visit 02/02/2012 4:00p [facility] Stephie Valle M.D. 46114 V12.04 - [place] Office Visit 01/04/2012 2:20p [facility] Medicine Stephie Valle M.D. 96441 466.0 - [place] 278.00 Office Visit 12/28/2011 2:40p [facility] Internal Medicine Stephie Valle M.D. 69881 466.0 - [place] Office Visit 10/22/2011 3:00p [facility] Internal Medicine Stephie Valle M.D. 41748 346.10 - [place] Plan of Care 06/23/2017 - Velia Kapoor, PRATIMAM54.5 Low back painN39.0 Urinary tract infection, site not specifiedNew Medication:Bactrim DS 800-160 mgComments:For your urinary tract infection: I have ordered antibiotic Bactrim to take twice a day.Drink plentyof liquids including cranberry juiceI will send your urine for culture and sensitivity
--- NOTE | 2017-07-21 11:20 | UC ---
Jose Deal Angela, scribed for Imani Robins MD on 07/21/17 at 1059 . General HPI - HPI Summary HPI Summary: This pt is a 32 y/o female, with PMHx of asthma, presenting to [facility] c/o worsening chest congestion and nasal congestion since yesterday. Associated symptoms include sore throat, sinus pain, productive cough with green sputum. Pt has been using her nebulizer at home with mild relief. The last time she was on Prednisone was in March 2017. no hospitalization for asthma. Denies nausea, vomiting. Pt states feels warm inside but has not taken her temp. Pt has has used OTC cough and flu med without relief. 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 LMP: June 25, 2017 Patients medication reviewed this visit. - History of Current Complaint Chief Complaint: UCRespiratory Stated Complaint: COUGH, TIGHTNESS IN CHEST Hx Obtained From: Patient Hx Last Menstrual Period: jun 25 Onset/Duration: Gradual Onset, Lasting Days - 1, Still Present Timing: Constant Current Severity: Mild Pain Intensity: 1 Pain Location at: chest Aggravating: nothing Alleviating: nothing Associated Signs & Symptoms: Positive: Cough, Other - POS: chest congestion, sore throat, sinus pain.. Negative: Nausea, Vomiting - Allergy/Home Medications Allergies/Adverse Reactions: Allergies Allergy/AdvReac Type Severity Reaction Status Date / Time No Known Allergies Allergy Verified 10/11/16 20:23 Home Medications: Home Medications Albuterol 2.5MG/3ML (0.083%)* [Ventolin 2.5 MG/3 ML NEB.SERA*] 1 INHH PRN [History] Albuterol HFA INHALER* [Ventolin HFA Inhaler*] PRN 07/21/17 [History] clonazePAM TAB(*) [Klonopin TAB(*)] 0.5 mg PO PRN 07/21/17 [History] PMH/Surg Hx/FS Hx/Imm Hx Previously Healthy: Yes Other Endocrine History: DENIES: diabetes Respiratory History: Asthma, Bronchitis Other History Of: Negative For: HIV, Hepatitis B, Hepatitis C, Anticoagulant Therapy - Surgical History Surgical History: Yes Surgery Procedure, Year, and Place: csection x3. [place] - Family History Known Family History: Positive: Diabetes, Other - cancer Negative: Cardiac Disease, Hypertension - Social History Occupation: Employed Full-time Lives: With Family Alcohol Use: Occasionally Alcohol Amount: "I don't like ETOH" Substance Use Type: Marijuana Substance Use Comment - Amount & Last Used: RARE Smoking Status (MU): Current Every Day Smoker Amount Used/How Often: "a few a day" Household Exposure Type: Cigarettes Review of Systems Constitutional: Negative Skin: Negative Eyes: Negative ENT: Sore Throat, Sinus Congestion, Sinus Pain/Tenderness Respiratory: Cough, Other - chest congestion Cardiovascular: Negative Gastrointestinal: Negative Genitourinary: Negative Motor: Negative Neurovascular: Negative Musculoskeletal: Negative Neurological: Negative Psychological: Negative All Other Systems Reviewed And Are Negative: Yes Physical Exam Triage Information Reviewed: Yes Appearance: Other: - tired appearing, congested Vital Signs: Initial Vital Signs Temp 98.7 F 07/21/17 10:41 Pulse 92 07/21/17 10:41 Resp 18 07/21/17 10:41 BP 135/83 07/21/17 10:41 Pulse Ox 97 07/21/17 10:41 Vital Signs Reviewed: Yes Eye Exam: Normal Eyes: Positive: Conjunctiva Clear ENT: Positive: Other - TM x 2 clear no fluid, no erythema nasal congestion + PND + erythema exuate on left tonsil Dental Exam: Normal Neck exam: Normal Neck: Positive: Supple, Nontender, No Lymphadenopathy Respiratory: Positive: Chest non-tender, Other: - scattered wheeze no rhonci No retraction Cardiovascular Exam: Normal Cardiovascular: Positive: RRR, No Murmur, Pulses Normal Abdominal Exam: Normal Abdomen Description: Positive: Nontender, No Organomegaly, Soft Musculoskeletal Exam: Normal Musculoskeletal: Positive: Strength Intact Neurological Exam: Normal Neurological: Positive: Alert Psychological Exam: Normal Skin Exam: Normal Diagnostics - Radiology Chest XR Xray Interpretation: Positive (See Comments) - IMPRESSION: 1. Elevated lung volumes suggest obstructive lung disease corresponding with clinical history. 2. No radiographic evidence for pneumonia. Dr. Robins has reviewed this radiology report. Radiology Interpretation Completed By: Radiologist Re-Evaluation - Re-Evaluation First Eval Change: Improved - flu and strep neg. Pt states feels much improved after neb CXR - Will start pred neb Q4hr abx tamiflu prophylaxis Course/Dx - Course Course Of Treatment: Pt with congestion, cough, sore throat and body ache. Pt with scattered wheeze, h/o asthma. will check CXR. flu, strep. neb. reassess - Differential Dx - Multi-Symptom Provider Diagnoses: bronchitis. influenza exposure. asthma Discharge - Discharge Plan Condition: Stable Disposition: HOME Patient Education Materials: Acute Bronchitis (ED), Asthma (ED) Referrals: Non Staff,Doctor [Medical Doctor] - Additional Instructions: - Stay well hydrated. Drink plenty of non-alcoholic, non-caffinated beverages. - Alternate ibuprofen (Advil, Motrin) 600mg and Tylenol every 3 hours for pain or fever. Take with food. Do NOT take for more than 4-5 days. - These infections are spread by secretions - do NOT share eating or drinking utensils - clean items you share with other people such as cell phones, computer mouse, TV remote, computer tablets, etc. After you have taken antibiotics for 2 days, change your toothbrush and your pillowcase - Take prednisone as prescribed until gone - Use your nebulizer every 4 hours today and tomorrow, then every 4 hours as needed for wheeze - humidify the air in the room where you sleep - boil water, run a hot steam shower, vaporizer, cups of water by heat register - okay to take over the counter decongestant and cough medication - get plenty of restful sleep. - contact your doctor or return with questions or concerns The documentation as recorded by the Jose gray Angela accurately reflects the service I personally performed and the decisions made by me, Imani Robins MD.
--- NOTE | 2017-07-21 11:40 | RAD ---
INDICATION: Productive cough, shortness of breath, chest pain, wheezing. Tobacco use. Obstructive lung disease. COMPARISON: April 11, 2017 TECHNIQUE: Dual energy PA and routine lateral views of the chest were obtained. REPORT: Elevated lung volumes. Clear lungs and pleural spaces. Negative for pneumothorax. The heart, pulmonary vasculature, and mediastinal contours are unremarkable. Gallbladder fossa level surgical clips. Unremarkable osseous structures and soft tissue contours. IMPRESSION: 1. Elevated lung volumes suggest obstructive lung disease corresponding with clinical history. 2. No radiographic evidence for pneumonia.
== END 2017-07-21 12:08 | disposition home or self-care (01) ==
LOC: UCEAST 10:34
DX: J40 Bronchitis, not specified as acute or chronic (principal); J45.909 Unspecified asthma, uncomplicated; Z20.828 Contact with and (suspected) exposure to other viral communicable diseases; F17.210 Nicotine dependence, cigarettes, uncomplicated
CPT/HCPCS: 71046; 87502; 87651; 99212; A9270-GY; G0463

== ENCOUNTER 2017-07-22 12:51 | Emergency (ER) | payer OTHER ==
[2017-07-22] MEDS ORDERED: methylPREDNISolone 125 MG* 2 ML VIAL IV ONE (14:03)
[2017-07-22] MEDS ORDERED: NS 0.9% 1000 ML* 1,000 ML IV ONE (14:03)
[2017-07-22] MEDS: Albuterol/Ipratropium NEB.SOL* Albuterol 2.5 MG/Ipratropium 0.5 MG 3 ML INH SCH ×2 (14:23→14:30)
[2017-07-22 14:43] LABS: ABS Basophils 0.1 10^3/ul (0-0.2); ABS Eosinophils 0.5 10^3/ul (0-0.6); ABS Lymphocytes 3.7 10^3/ul (1.0-4.8); ABS Neutrophils 6.1 10^3/ul (1.5-7.7); ABS Nucleated RBC 0 10^3/ul; Eosinophil % 4.4 % (0-6); Hematocrit 39 % (35-47); Hemoglobin 13.2 g/dl (12.0-16.0); Lymphocyte % 32.4 % (25-47); Mean Corpuscular HGB Conc 34 g/dl (31-36); Mean Corpuscular Hemoglobin 30 pg (27-31); Mean Corpuscular Volume 87 fL (80-97); Mean Platelet Volume 9 um3 (7.4-10.4); Nucleated Red Blood Cells % 0.1; Platelet Count 290 10^3/ul (150-450); Red Blood Count 4.45 10^6/ul (4.0-5.4); Red Cell Distribution Width 14 % (10.5-15); White Blood Count 11.4 10^3/ul (3.5-10.8)
[2017-07-22] MEDS ORDERED: LORazepam TAB(*) 0.5 MG PO ONE (14:56)
[2017-07-22 14:58] LABS: EGFR Non-African American 114.4 (>60)
[2017-07-22] MEDS ORDERED: Potassium Chlor TAB* 20 MEQ TAB.ER PO ONE (15:01)
--- NOTE | 2017-07-22 15:34 | RAD ---
INDICATION: Shortness of breath. COMPARISON: Comparison is made with a prior study from July 21, 2017. TECHNIQUE: A portable view of the chest was obtained. FINDINGS: Cardiac and mediastinal contours appear to be within normal limits. The lungs are clear. No pleural effusion is seen. IMPRESSION: NO EVIDENCE FOR ACUTE DISEASE.
[2017-07-22 16:30] VITALS: BP 129/64
--- NOTE | 2017-07-24 08:37 | ED ---
Hayden Deal Thomas, scribed for Blaze Byrd MD on 07/22/17 at 1417 . Shortness of Breath - HPI Summary HPI Summary: The patient presents with chest pain and shortness of breath that began this morning. The chest pain is left-sided and it radiates into her neck and left shoulder. The patient additionally complains of facial and hand numbness. The patient has recent influenza exposures. She was evaluated at urgent care yesterday, where Influenza A/B and Rapid Strep were negative. A CXR was obtained yesterday as well. - History of Current Complaint Chief Complaint: EDChestPainROMI Time Seen by Provider: 07/22/17 13:47 Hx Obtained From: Patient Onset/Duration: Lasting Hours - onset this AM, Still Present Timing: Constant Current Severity: Moderate Dyspnea At: Rest Aggrevating Factors: Nothing Alleviating Factors: Nothing Related History: Obesity - Allergy/Home Medications Allergies/Adverse Reactions: Allergies Allergy/AdvReac Type Severity Reaction Status Date / Time No Known Allergies Allergy Verified 07/22/17 13:41 PMH/Surg Hx/FS Hx/Imm Hx Endocrine/Hematology History: Denies: Hx Anticoagulant Therapy, Hx Blood Disorders, Hx Diabetes, Hx Thyroid Disease, Hx Unexplained Bleeding Cardiovascular History: Denies: Hx Congestive Heart Failure, Hx Deep Vein Thrombosis, Hx Hypertension , Hx Myocardial Infarction, Hx Pacemaker/ICD, Other Cardiovascular Problems/ Disorders Respiratory History: Reports: Hx Asthma - childhood asthma, recurred 3 yrs ago after of son, Hx Chronic Obstructive Pulmonary Disease (COPD) - "bronchitis 2 x a year" + smoking and CXR + obstructive dz Denies: Hx Lung Cancer, Hx Pneumonia, Hx Pulmonary Embolism GI History: Denies: Hx Gall Bladder Disease, Hx Gastrointestinal Bleed, Hx Ulcer, Hx Urosepsis History: Reports: Other Problems/Disorders - Essure in place Denies: Hx Kidney Stones, Hx Renal Disease Neurological History: Reports: Hx Migraine Denies: Hx Dementia, Hx Seizures, Hx Transient Ischemic Attacks (TIA) Psychiatric History: Reports: Hx Anxiety, Hx Bipolar Disorder Denies: Hx Depression, Hx Schizophrenia - Surgical History Surgery Procedure, Year, and Place: csection x3. [place] Infectious Disease History: Yes Infectious Disease History: Reports: Hx of Known/Suspected MRSA - axilla 2011 Denies: Hx Clostridium Difficile, Hx Hepatitis, Hx Human Immunodeficiency Virus (HIV), Hx Shingles, Hx Tuberculosis, Hx Known/Suspected VRE, Hx Known/ Suspected VRSA, History Other Infectious Disease, Traveled Outside the [place] in Last 30 Days - Family History Known Family History: Positive: Diabetes, Other - cancer Negative: Cardiac Disease, Hypertension - Social History Alcohol Use: Occasionally Alcohol Amount: "I don't like ETOH" Hx Substance Use: Yes Substance Use Type: Reports: Marijuana Substance Use Comment - Amount & Last Used: RARE Hx Tobacco Use: Yes Smoking Status (MU): Current Every Day Smoker Amount Used/How Often: "a few a day" Review of Systems Positive: Chest Pain Positive: Shortness Of Breath Positive: Numbness - facial, hand All Other Systems Reviewed And Are Negative: Yes Physical Exam - Summary Physical Exam Summary: VITAL SIGNS: Reviewed. GENERAL: Patient is a middle-aged female who is lying comfortable in the stretcher. She is in some distress secondary to shortness of breath. She has chest pain on the left side that radiates into her neck and shoulder. Patient is not in any acute respiratory distress. HEAD AND FACE: No signs of trauma. ~No ecchymosis, hematomas or skull depressions. No sinus tenderness. EYES: PERRLA, EOMI x 2, No injected conjunctiva, no nystagmus. EARS: Hearing grossly intact. Ear canals and tympanic membranes are within normal limits. MOUTH: Oropharynx within normal limits. NECK: Supple, trachea is midline, no adenopathy, no JVD, no carotid bruit, no c- spine tenderness, neck with full ROM. CHEST: Symmetric, no tenderness at palpation LUNGS: She is in some distress secondary to shortness of breath. She has decreased breath sounds bilaterally but no wheezing. CVS: Regular rate and rhythm, S1 and S2 present, no murmurs or gallops appreciated. ABDOMEN: Soft, non-tender. No signs of distention. No rebound no guarding, and no masses palpated. Bowel sounds are normal. EXTREMITIES: FROM in all major joints, no edema, no cyanosis or clubbing. NEURO: Alert and oriented x 3. No acute neurological deficits. Speech is normal and follows commands. SKIN: Dry and warm Triage Information Reviewed: Yes Vital Signs On Initial Exam: Initial Vitals Temp Pulse Resp BP Pulse Ox 99.3 F 81 22 129/73 100 07/22/17 13:34 07/22/17 13:34 02/08/18 13:34 07/22/17 13:34 07/22/17 13:34 Vital Signs Reviewed: Yes Diagnostics - Vital Signs Vital Signs Temp Pulse Resp BP Pulse Ox 07/22/17 13:57 88 100 07/22/17 13:34 99.3 F 81 22 129/73 100 - Laboratory Lab Results: Lab Results 07/22/17 07/22/17 Range/Units 14:20 14:20 WBC 11.4 H (3.5-10.8) 10^3/ul RBC 4.45 (4.0-5.4) 10^6/ul Hgb 13.2 (12.0-16.0) g/dl Hct 39 (35-47) % MCV 87 (80-97) fL MCH 30 (27-31) pg MCHC 34 (31-36) g/dl RDW 14 (10.5-15) % Plt Count 290 (150-450) 10^3/ul MPV 9 (7.4-10.4) um3 Neut % (Auto) 53.8 (38-83) % Lymph % (Auto) 32.4 (25-47) % Edgar % (Auto) 8.8 (1-9) % Eos % (Auto) 4.4 (0-6) % Baso % (Auto) 0.6 (0-2) % Absolute Neuts (auto) 6.1 (1.5-7.7) 10^3/ul Absolute Lymphs (auto) 3.7 (1.0-4.8) 10^3/ul Absolute Monos (auto) 1.0 H (0-0.8) 10^3/ul Absolute Eos (auto) 0.5 (0-0.6) 10^3/ul Absolute Basos (auto) 0.1 (0-0.2) 10^3/ul Absolute Nucleated RBC 0 10^3/ul Nucleated RBC % 0.1 Sodium 138 (133-145) mmol/L Potassium 3.2 L (3.5-5.0) mmol/L Chloride 107 (101-111) mmol/L Carbon Dioxide 23 (22-32) mmol/L Anion Gap 8 (2-11) mmol/L BUN 11 (6-24) mg/dL Creatinine 0.61 (0.51-0.95) mg/dL Est GFR ( Amer) 147.1 (>60) Est GFR (Non-Af Amer) 114.4 (>60) BUN/Creatinine Ratio 18.0 (8-20) Glucose 102 H (70-100) mg/dL Calcium 9.3 (8.6-10.3) mg/dL Total Bilirubin 0.30 (0.2-1.0) mg/dL AST 12 L (13-39) U/L ALT 11 (7-52) U/L Alkaline Phosphatase 66 (34-104) U/L C-Reactive Protein < 1.00 (< 5.00) mg/L Total Protein 6.7 (6.4-8.9) g/dL Albumin 4.2 (3.2-5.2) g/dL Globulin 2.5 (2-4) g/dL Albumin/Globulin Ratio 1.7 (1-3) Result Diagrams: 07/22/17 14:20 07/22/17 14:20 Lab Statement: Any lab studies that have been ordered have been reviewed, and results considered in the medical decision making process. - Radiology CXR Xray Interpretation: No Acute Changes - No evidence for acute disease. Dr. Byrd has reviewed this report. Radiology Interpretation Completed By: Radiologist - EKG 13:33 Cardiac Rate: NL - at 86 BPM EKG Rhythm: Sinus Rhythm EKG Interpretation: No ST elevations. Course/Dx - Course Assessment/Plan: The patient presents with chest pain and shortness of breath that began this morning. The chest pain is left-sided and it radiates into her neck and left shoulder. The patient additionally complains of facial and hand numbness. The patient has recent influenza exposures. She was evaluated at urgent care yesterday, where Influenza A/B and Rapid Strep were negative. A CXR was obtained yesterday as well. The test results are without significant abnormalities except WBC 11.4 and potassium 3.2. CXR shows no evidence of acute disease. The patient has a dry cough and decreased breath sounds, therefore the patient was given Duoneb and SoluMedrol treatments, and her symptoms significantly improved. At this point, the patient feels better, and she is in no pain or shortness of breath. The patient will be discharged home with follow up by primary care. I believe the patients symptoms are secondary to influenza and an asthma exacerbation. - Diagnoses Provider Diagnoses: Asthma exacerbation, Influenza Discharge - Discharge Plan Condition: Stable Disposition: HOME Prescriptions: Albuterol HFA INHALER* [Ventolin HFA Inhaler*] 2 puff INH SEE INSTRUCTIONS PRN # 1 mdi PRN Reason: Sob/Wheezing predniSONE TAB* [Deltasone TAB*] 50 mg PO DAILY #4 tab Patient Education Materials: Asthma (ED), Influenza (ED) Forms: *Work Release Referrals: James Fonseca MD [Primary Care Provider] - 3 Days Additional Instructions: Follow up with your primary care provider in three days. Return to the emergency department for any new or worsening symptoms. The documentation as recorded by the Hayden gray Thomas accurately reflects the service I personally performed and the decisions made by me, Blaze Byrd MD.
== END 2017-07-22 16:34 | disposition home or self-care (01) ==
LOC: ED 12:51
DX: J45.901 Unspecified asthma with (acute) exacerbation (principal); J11.1 Influenza due to unidentified influenza virus with other respiratory manifestations; F17.200 Nicotine dependence, unspecified, uncomplicated
CPT/HCPCS: 36415; 71045; 80053; 85025; 86140; 93005; 94640; 96374; 99283; A9270-GY; J2930

== ENCOUNTER 2017-08-02 16:16 | Emergency (ER) | payer SELFPAY ==
[2017-08-02 16:31] VITALS: BP 125/72
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
== END 2017-08-02 16:57 | disposition home or self-care (01) ==
LOC: UCEAST 16:16
DX: S09.93XA Unspecified injury of face, initial encounter (principal); Y04.2XXA Assault by strike against or bumped into by another person, initial encounter; Y93.9 Activity, unspecified; Y92.129 Unspecified place in nursing home as the place of occurrence of the external cause; Y99.0 Civilian activity done for income or pay; J44.9 Chronic obstructive pulmonary disease, unspecified; G43.909 Migraine, unspecified, not intractable, without status migrainosus; F41.9 Anxiety disorder, unspecified; F32.9 Major depressive disorder, single episode, unspecified; F17.200 Nicotine dependence, unspecified, uncomplicated
CPT/HCPCS: 99212; G0463

== ENCOUNTER 2017-08-12 11:49 | Emergency (ER) | payer OTHER ==
[2017-08-12 12:01] VITALS: BP 143/88
[2017-08-12] MEDS ORDERED: HYDROcodone/ACETAMIN 5-325 MG* 1 TAB PO ONE (12:14)
--- NOTE | 2017-08-12 12:27 | UC ---
UC Dental HPI - HPI Summary HPI Summary: 32 year old female with toothache for over one week. She reports having dental procedure 4 days ago. She denies any n/v/d. She reports her abx was recently switched to amoxicillin from clindamycin . - History of Current Complaint Chief Complaint: UCDentalProblem Stated Complaint: DENTAL PAIN Time Seen by Provider: 08/12/17 12:05 Hx Last Menstrual Period: 07/26/17 Onset/Duration: Sudden Onset Severity: Mild Pain Intensity: 10 Aggravating Factor(s): Chewing - Allergies/Home Medications Allergies/Adverse Reactions: Allergies Allergy/AdvReac Type Severity Reaction Status Date / Time No Known Allergies Allergy Verified 08/12/17 11:54 Home Medications: Home Medications Acetaminophen [Pain Reliever] 1 tab PO Q6HR PRN 08/12/17 [History Confirmed 07/01] Amoxicillin PO (*) [Amoxicillin 500 MG CAP*] 1 tab PO BID 08/12/17 [History Confirmed 08/12/17] Naproxen [Naproxen 500 mg] 1 tab PO BID PRN 08/12/17 [History Confirmed 08/12/17 ] PMH/Surg Hx/FS Hx/Imm Hx Previously Healthy: Yes Other History Of: Negative For: HIV, Hepatitis B, Hepatitis C, Anticoagulant Therapy - Surgical History Surgical History: Yes Surgery Procedure, Year, and Place: csection x3. [place] - Family History Known Family History: Positive: Diabetes, Other - cancer Negative: Cardiac Disease, Hypertension - Social History Alcohol Use: Occasionally Alcohol Amount: "I don't like ETOH" Substance Use Type: Marijuana Substance Use Comment - Amount & Last Used: RARE Smoking Status (MU): Light Every Day Tobacco Smoker Amount Used/How Often: 1 pack q 3 days Household Exposure Type: Cigarettes Review of Systems Constitutional: Negative Skin: Negative Eyes: Negative ENT: Negative Respiratory: Negative Cardiovascular: Negative Gastrointestinal: Negative Genitourinary: Negative Motor: Negative Neurovascular: Negative Musculoskeletal: Negative Neurological: Negative Psychological: Negative All Other Systems Reviewed And Are Negative: No Physical Exam Triage Information Reviewed: Yes Appearance: Well-Appearing, No Pain Distress, Well-Nourished Vital Signs: Initial Vital Signs Temp 37.3 C 08/12/17 11:56 Pulse 88 08/12/17 11:56 Resp 18 08/12/17 11:56 BP 143/88 08/12/17 11:56 Pulse Ox 99 08/12/17 11:56 ENT Exam: Normal ENT: Positive: Other. Negative: Trismus, Muffled voice Dental: Positive: Percussion Tenderness @ - right lower molar removal with clots No abscess Neck: Positive: Supple, Nontender, No Lymphadenopathy. Negative: Nuchal Rigidity Respiratory: Positive: Chest non-tender, Lungs clear, Normal breath sounds, No respiratory distress, No accessory muscle use Cardiovascular Exam: Normal Cardiovascular: Positive: RRR, No Murmur, Pulses Normal Neurological Exam: Normal Skin Exam: Normal Dental Complaint Course/Dx - Course Course Of Treatment: Gave two doses of norco here. However [place] [employer] revealed that she received over 42 pills of percocet in one week. Will hold off further rx. Pasted below. 08/05/2017 08/05/2017 oxycodone-acetaminophen 5-325 mg tablet 30 10 Aime Palm MD. 08/02/2017 08/02/2017 oxycodone- acetaminophen 5-325 mg tablet 12 3 Beverly Stuart PA-C. 06/23/20172017 clonazepam 0.5 mg tablet 90 30 Velia Bower [employer]. 05/19/20172016 clonazepam 0.5 mg tablet 60 30 Velia Bower [employer]. 12/17/20162016 tramadol hcl 50 mg tablet 8 2 Kate Aguirre ([employer]) - Differential Dx/Diagnosis Differential Diagnosis/Dx: Fractured Tooth, Gingivitis, Odontogenic Pain Provider Diagnoses: Dental pain Discharge - Discharge Plan Condition: Good Disposition: HOME Prescriptions: Benzocaine [Oral Anesthetic Paste] 12 gm MM BID PRN #1 paste..g. PRN Reason: Pain Patient Education Materials: Toothache (ED) Referrals: James Fonseca MD [Primary Care Provider] -
== END 2017-08-12 12:39 | disposition home or self-care (01) ==
LOC: UCEAST 11:49
DX: K08.89 Other specified disorders of teeth and supporting structures (principal); F17.210 Nicotine dependence, cigarettes, uncomplicated
CPT/HCPCS: 99212; G0463

== ENCOUNTER 2017-11-19 08:45 | Day surgery (SDC) | payer OTHER ==
[~2017-11-19 08:45] MED LIST: Buffered Lidocaine 0.9% SYRIN* 5 ML/SYR SYRINGE INTRADERM ONE
[2017-11-19] MEDS ORDERED: Naloxone* 0.4 MG/ML 1 ML VIAL IV PRN (09:26)
[2017-11-19] MEDS ORDERED: Ondansetron ODT TAB* 4 MG PO PRN (09:26)
[2017-11-19] MEDS ORDERED: Ondansetron INJ* 2 MG/ML VIAL IV PRN (09:26)
[2017-11-19] MEDS ORDERED: PROCHLORPERAZINE INJ 5 MG/ML 2 ML VIAL IV PRN (09:26)
[2017-11-19] MEDS ORDERED: Nalbuphine* 20 MG/ML 1 ML VIAL IV PRN (09:26)
[2017-11-19] MEDS ORDERED: DiMENhydriNATE IV* 50 MG/ML VIAL IV PUSH PRN (09:26)
[2017-11-19] MEDS ORDERED: fentaNYL* 50 MCG/ML 2 ML VIAL (100 MCG VIAL) IV PRN (09:26)
[2017-11-19] MEDS ORDERED: HYDROcodone/ACETAMIN 5-325 MG* 1 TAB PO PRN (09:26)
[2017-11-19] MEDS ORDERED: Levalbuterol 0.63MG/3ML NEB* UNIT OF USE INH PRN (09:26)
[2017-11-19] MEDS ORDERED: diPHENhydraMINE IV* 50 MG/ML 1 ml VIAL (BENADRYL) IV PRN (09:26)
[2017-11-19] MEDS ORDERED: Acetaminophen TAB* 325 MG PO PRN (09:26)
[2017-11-19] MEDS ORDERED: Famotidine IV* 10 MG/ML 2 ML (20 mg) ONE (11:08)
[2017-11-19] MEDS ORDERED: Midazolam* 1 MG/ML 5 ML VIAL (5 MG) ONE (11:08)
[2017-11-19] MEDS ORDERED: Dexamethasone IV* 4 MG/ML 1 ML (4 MG) ONE (11:08)
[2017-11-19] MEDS ORDERED: Propofol* 10 MG/ML 20 ML BTL IV PUSH ONE (11:08)
[2017-11-19] MEDS ORDERED: fentaNYL* 50 MCG/ML 2 ML VIAL (100 MCG VIAL) ONE ×2 (11:08→11:33)
[2017-11-19] MEDS ORDERED: Ondansetron ODT TAB* 4 MG ONE (11:08)
[2017-11-19] MEDS ORDERED: Mivacurium Chloride* 20 MG/10 ML VIAL IV ONE (11:08)
[2017-11-19] MEDS ORDERED: PROCHLORPERAZINE INJ 5 MG/ML 2 ML VIAL ONE (11:28)
[2017-11-19] MEDS ORDERED: Labetalol IV* 5 MG/ML 20 ML VIAL ONE (11:41)
[2017-11-19] MEDS ORDERED: Dexmedetomidine* 200 MCG/2 ML 2 ML VIAL ONE (11:42)
[2017-11-19] MEDS ORDERED: HYDROcodone/ACET. 7.5/325 LIQ* 15 ML UDC ONE (12:44)
[2017-11-19 12:55] VITALS: BP 130/72
--- NOTE | 2017-11-20 09:05 | OP ---
DATE OF OPERATION: 11/19/17 - [facility] DATE OF : 87 ATTENDING SURGEON: Amadou De La Cruz MD. GASOLINE FINISHER: None. ANESTHESIA: General. PRE-OP DIAGNOSIS: Chronic tonsillitis and adenotonsillar hypertrophy. POST-OP DIAGNOSIS: Chronic tonsillitis and adenotonsillar hypertrophy. OPERATIVE PROCEDURE: Tonsillectomy and adenoidectomy. ESTIMATED BLOOD LOSS: Approximately 20 cc. SPECIMENS: Right and left tonsils to pathology, adenoids were vaporized. DESCRIPTION OF PROCEDURE: On 11/19/17 the patient was brought to the operating room, general anesthesia was induced and an oral endotracheal tube was placed. The patient was draped, the table was turned, a head wrap was applied, and a time-out was called. A McIvor mouth gag was used to facilitate exposure of the oropharynx, it was suspended from the Pagan stand. The right tonsil was addressed first. It was grasped with a straight Allis forceps, retracting medially, and dissected free of its fossa with a coblation device in the setting of 7 and 3. There was some inferior pole bleeding which was cauterized with the bipolar function of the device. Attention was then turned to the left tonsil. Left tonsil was removed in an identical fashion with no bleeding. Once the tonsils were out, the superior and inferior pole regions were prophylactically cauterized with the coag setting at 5. A red rubber catheter was then placed through the right nasal cavity, brought out through the mouth and used to retract the soft palate. The adenoid bed was inspected. Redundant adenoid tissue in the region of the choana was vaporized with the coblation device in the setting of 9 and 5. With the adenoidectomy complete an orogastric tube was passed into the stomach and the stomach contents were evacuated. Mouth gag was then let down for a period of a minute. It was opened. There was a small amount of bleeding from the right inferior pole region which was again controlled with the coag function on the coblation device. The mouth gag was let down for another minute. It was then opened. The tonsillar fossa was reinspected. There was no evidence of active bleeding. The patient was then returned to the care of the anesthesiologist and extubated. [id number]/[facility] #: [id number] [facility]
== END 2017-11-19 13:48 | disposition home or self-care (01) ==
LOC: OR 08:45
PROVIDERS: ATTEND Otolaryngology
DX: J35.3 Hypertrophy of tonsils with hypertrophy of adenoids (principal); Z72.0 Tobacco use; J45.909 Unspecified asthma, uncomplicated; F41.8 Other specified anxiety disorders; F31.9 Bipolar disorder, unspecified; F43.10 Post-traumatic stress disorder, unspecified
CPT/HCPCS: 81025; 88304; A9270-GY; J0780; J1100; J2250; J2704; J3010

== ENCOUNTER 2017-11-23 12:41 | Emergency (ER) | payer OTHER ==
--- OUTSIDE RECORDS SUMMARY | 2017-11-23 13:04 | XMS REPORT ---
:1985 External Reference #:[id number] Author Organization [facility] Address [address] [place] [address] Phone [phone] Care Team Providers Name Role Phone Cristi Fonseca M.D. Primary Care Physician Unavailable Problems Description No Information Family History Date Family Member(s) Problem(s) Comments General Asthma General Migraine Social History Type Date Description Comments Occupation Unemployed Cigarette Use Current Cigarette Smoker 1-5 Cigarettes Smoked for 1 year. Daily Cigars Never Smoked Cigars Pipe Never Smoked A Pipe Smokeless Tobacco Never Used Smokeless Tobacco ETOH Use Currently occasionally consumes alcohol Smoking Patient is a current smoker, smokes every day Allergies, Adverse Reactions, Alerts Date Description Reaction Status Severity Comments 10/29/2017 NKDA active Medications Medication Date Status Form Strength Qnty SIG Indications Ordering Provider Clonazepam Active Tablets 0.5mg Take 1 Unknown 0 Tablet By Mouth Up To 3 Times Daily as Needed Vital Signs Date Vital Result Comment 10/29/2017 Weight 191.00 lb Weight in kg's 86.638 Height 62 inches 5'2" Height in cm's 157.5 cm BMI (Body Mass Index) 34.9 kg/m2 Results Description No Information Procedures Description No Information Encounters Type Date Location Provider CPT E/M Dx Office Visit 10/29/2017 9:45a [place] 06/14/07 [place] [address] J35.3 Plan of Care Future Appointment(s):11/19/2017 9:45 am - Amadou De La Cruz MD at [facility] [place] [facility] [place] R0 - Amadou De La Cruz MDJ35.3 Hypertrophy of tonsils with hypertrophy of adenoids
[2017-11-23] MEDS ORDERED: NS 0.9% 1000 ML*IV.FLUID IV ONE (13:39)
[2017-11-23] MEDS ORDERED: Ketorolac INJ* 30 MG/ML 1 ML VIAL IV PUSH ONE (13:42)
[2017-11-23 13:59] LABS: ABS Basophils 0.1 10^3/ul (0-0.2); ABS Eosinophils 0.2 10^3/ul (0-0.6); ABS Lymphocytes 2.1 10^3/ul (1.0-4.8); ABS Monocytes 0.9 10^3/ul (0-0.8); ABS Neutrophils 9.7 10^3/ul (1.5-7.7); ABS Nucleated RBC 0 10^3/ul; Eosinophil % 1.9 % (0-6); Hematocrit 42 % (35-47); Hemoglobin 14.1 g/dl (12.0-16.0); Lymphocyte % 16.2 % (25-47); Mean Corpuscular HGB Conc 34 g/dl (31-36); Mean Corpuscular Hemoglobin 29 pg (27-31); Mean Corpuscular Volume 87 fL (80-97); Mean Platelet Volume 8.2 um3 (7.4-10.4); Nucleated Red Blood Cells % 0.1; Platelet Count 333 10^3/ul (150-450); Red Blood Count 4.81 10^6/ul (4.00-5.40); Red Cell Distribution Width 14 % (10.5-15)
[2017-11-23] MEDS ORDERED: cefTRIAXone(*) 2 GM in NS 0.9% 100 ML* 100 ML IVPB ONE (14:23)
[2017-11-23 14:42] LABS: INR 1.02 (0.77-1.02)
[2017-11-23 14:56] LABS: EGFR Non-African American 112.3 (>60)
--- NOTE | 2017-11-23 16:34 | ED ---
Throat Pain/Nasal Congestion - HPI Summary HPI Summary: Patient is 5 days post-op tonsillectomy with Dr. De La Cruz and presents with pain to the point of not being able to swallow her saliva. Additionally, she's not been getting relief from her meds and since it's painful to take them, hasn't taken today. She felt good the first few days after surgery but started to feel ill Wednesday and has gotten worse each day. Called Dr. Burks yesterday and was rx' d prednisone - she took 1 tab she had leftover at home and does not feel this helped. She has not been to pharmacy to attain remaining medication. She also reports she developed a subjective fever yesterday and today and is here feeling "awful". Has a 5 y.o. child at home she takes care of and "can't do this ". Pain is worse on Rt (admits pain was always worse on Rt w/ tonsilitis as well but does have B/L pain now). No difficulty breathing and denies [place], neck pain/stiffness. Has not been smoking since surgery. - History of Current Complaint Chief Complaint: EDThroatPain Time Seen by Provider: 11/23/17 13:03 Hx Obtained From: Patient - Allergies/Home Medications Allergies/Adverse Reactions: Allergies Allergy/AdvReac Type Severity Reaction Status Date / Time No Known Allergies Allergy Verified 11/19/17 09:09 Home Medications: Home Medications HYDROcodone/ACET. 7.5/325 LIQ* [Lortab Elixir 7.5/325 per 15 ml *] 15 ml PO Q6H PRN 11/23/17 [History Confirmed 11/23/17] PMH/Surg Hx/FS Hx/Imm Hx Previously Healthy: Yes Endocrine/Hematology History: Denies: Hx Anticoagulant Therapy, Hx Blood Disorders, Hx Diabetes, Hx Thyroid Disease, Hx Unexplained Bleeding, Autoimmune Disease Cardiovascular History: Denies: Hx Congestive Heart Failure, Hx Deep Vein Thrombosis, Hx Hypertension , Hx Myocardial Infarction, Hx Pacemaker/ICD, Other Cardiovascular Problems/ Disorders Respiratory History: Reports: Hx Asthma - childhood asthma, recurred 6 yrs ago after of son, Hx Chronic Obstructive Pulmonary Disease (COPD) - "bronchitis 2 x a year" + smoking and CXR + obstructive dz Denies: Hx Lung Cancer, Hx Pneumonia, Hx Pulmonary Embolism GI History: Denies: Hx Gall Bladder Disease, Hx Gastrointestinal Bleed, Hx Ulcer, Hx Urosepsis History: Reports: Other Problems/Disorders - Essure in place Denies: Hx Kidney Stones, Hx Renal Disease Sensory History: Reports: Hx Contacts or Glasses Denies: Hx Hearing Aid Opthamlomology History: Reports: Hx Contacts or Glasses EENT History: Reports: Hx Tonsillitis - s/p tonsilectomy 11/19/2017 w/ [facility] Neurological History: Reports: Hx Migraine Denies: Hx Dementia, Hx Seizures, Hx Transient Ischemic Attacks (TIA) Psychiatric History: Reports: Hx Anxiety, Hx Depression - BIPOLAR AND PSTD, Hx Bipolar Disorder Denies: Hx Schizophrenia - Surgical History Surgery Procedure, Year, and Place: csection x3. 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 Denies: Hx Clostridium Difficile, Hx Hepatitis, Hx Human Immunodeficiency Virus (HIV), Hx Shingles, Hx Tuberculosis, Hx Known/Suspected VRE, History Other Infectious Disease, Traveled Outside the [place] in Last 30 Days - Family History Known Family History: Positive: Diabetes, Other - cancer Negative: Cardiac Disease, Hypertension - Social History Lives: With Family Alcohol Use: Occasionally Alcohol Amount: "I don't like ETOH" Hx Substance Use: Yes Substance Use Type: Reports: None Substance Use Comment - Amount & Last Used: RARE Hx Tobacco Use: Yes Smoking Status (MU): Light Every Day Tobacco Smoker Type: Cigarettes Amount Used/How Often: 1/2 PPD Have You Smoked in the Last Year: Yes Review of Systems Positive: Fever, Fatigue Positive: Sore Throat, Ear Ache. Negative: Epistaxis, Dental Pain, Nasal Discharge Cardiovascular: Negative Respiratory: Negative Positive: Nausea. Negative: Abdominal Pain, Vomiting, Diarrhea Positive: no symptoms reported - reduced urine output from not drinking much Musculoskeletal: Negative Skin: Negative Neurological: Negative Positive: Anxious All Other Systems Reviewed And Are Negative: Yes Physical Exam Triage Information Reviewed: Yes Vital Signs On Initial Exam: Initial Vitals Temp Pulse Resp BP Pulse Ox 100.1 F 105 18 119/97 97 11/23/17 12:55 11/23/17 12:55 11/23/17 12:55 11/23/17 12:55 11/23/17 12:55 Vital Signs Reviewed: Yes Appearance: Positive: Ill-Appearing, Pain Distress, Obese Skin: Positive: Warm, Skin Color Reflects Adequate Perfusion, Dry - no facial erythema or edema Head/Face: Positive: Normal Head/Face Inspection Eyes: Positive: Normal, EOMI, Conjunctiva Clear. Negative: Conjunctiva Inflammed, Discharge ENT: Positive: Hearing grossly normal, Pharyngeal erythema - white patchy eschar over B/L tonsilar spaces - no blood, TMs normal, Trismus - mild, Uvula midline. Negative: Nasal congestion, Nasal drainage, Muffled voice, Hoarse voice Neck: Positive: Supple, Tenderness @ - fullness and tenderness along submandibular areas B/L Respiratory/Lung Sounds: Positive: Clear to Auscultation, Breath Sounds Present. Negative: Stridor, Tracheal Deviation, Wheezes Cardiovascular: Positive: Tachycardia Abdomen Description: Positive: Nontender, No Organomegaly, Soft Musculoskeletal: Positive: Normal, Strength/ROM Intact Neurological: Positive: Normal, Sensory/Motor Intact, Alert, Oriented to Person Place, Time, CN Intact II-III Psychiatric: Positive: Anxious - tearful Diagnostics - Vital Signs Vital Signs Temp Pulse Resp BP Pulse Ox 11/23/17 15:18 98.9 F 73 16 124/78 95 11/23/17 12:55 100.1 F 105 18 119/97 97 - Laboratory Lab Results: Lab Results 11/23/17 11/23/17 11/23/17 Range/Units 13:49 13:49 13:49 WBC 13.0 H (3.5-10.8) 10^3/ul RBC 4.81 (4.00-5.40) 10^6/ul Hgb 14.1 (12.0-16.0) g/dl Hct 42 (35-47) % MCV 87 (80-97) fL MCH 29 (27-31) pg MCHC 34 (31-36) g/dl RDW 14 (10.5-15) % Plt Count 333 (150-450) 10^3/ul MPV 8.2 (7.4-10.4) um3 Neut % (Auto) 74.5 (38-83) % Lymph % (Auto) 16.2 L (25-47) % Roberts % (Auto) 7.0 (0-7) % Eos % (Auto) 1.9 (0-6) % Baso % (Auto) 0.4 (0-2) % Absolute Neuts (auto) 9.7 H (1.5-7.7) 10^3/ul Absolute Lymphs (auto) 2.1 (1.0-4.8) 10^3/ul Absolute Monos (auto) 0.9 H (0-0.8) 10^3/ul Absolute Eos (auto) 0.2 (0-0.6) 10^3/ul Absolute Basos (auto) 0.1 (0-0.2) 10^3/ul Absolute Nucleated RBC 0 10^3/ul Nucleated RBC % 0.1 INR (Anticoag Therapy) 1.02 (0.77-1.02) APTT 33.0 (26.0-36.3) seconds Sodium 138 L (139-145) mmol/L Potassium 3.9 (3.5-5.0) mmol/L Chloride 104 (101-111) mmol/L Carbon Dioxide 25 (22-32) mmol/L Anion Gap 9 (2-11) mmol/L BUN 5 L (6-24) mg/dL Creatinine 0.62 (0.51-0.95) mg/dL Est GFR ( Amer) 144.4 (>60) Est GFR (Non-Af Amer) 112.3 (>60) BUN/Creatinine Ratio 8.1 (8-20) Glucose 104 H (70-100) mg/dL Lactic Acid (0.5-2.0) mmol/L Calcium 9.6 (8.6-10.3) mg/dL Total Bilirubin 0.70 (0.2-1.0) mg/dL AST 28 (13-39) U/L ALT 130 H (7-52) U/L Alkaline Phosphatase 106 H (34-104) U/L C-Reactive Protein 37.53 H (< 5.00) mg/L Total Protein 7.2 (6.4-8.9) g/dL Albumin 4.2 (3.2-5.2) g/dL Globulin 3.0 (2-4) g/dL Albumin/Globulin Ratio 1.4 (1-3) 11/23/17 Range/Units 13:49 WBC (3.5-10.8) 10^3/ul RBC (4.00-5.40) 10^6/ul Hgb (12.0-16.0) g/dl Hct (35-47) % MCV (80-97) fL MCH (27-31) pg MCHC (31-36) g/dl RDW (10.5-15) % Plt Count (150-450) 10^3/ul MPV (7.4-10.4) um3 Neut % (Auto) (38-83) % Lymph % (Auto) (25-47) % Roberts % (Auto) (0-7) % Eos % (Auto) (0-6) % Baso % (Auto) (0-2) % Absolute Neuts (auto) (1.5-7.7) 10^3/ul Absolute Lymphs (auto) (1.0-4.8) 10^3/ul Absolute Monos (auto) (0-0.8) 10^3/ul Absolute Eos (auto) (0-0.6) 10^3/ul Absolute Basos (auto) (0-0.2) 10^3/ul Absolute Nucleated RBC 10^3/ul Nucleated RBC % INR (Anticoag Therapy) (0.77-1.02) APTT (26.0-36.3) seconds Sodium (139-145) mmol/L Potassium (3.5-5.0) mmol/L Chloride (101-111) mmol/L Carbon Dioxide (22-32) mmol/L Anion Gap (2-11) mmol/L BUN (6-24) mg/dL Creatinine (0.51-0.95) mg/dL Est GFR ( Amer) (>60) Est GFR (Non-Af Amer) (>60) BUN/Creatinine Ratio (8-20) Glucose (70-100) mg/dL Lactic Acid 0.7 (0.5-2.0) mmol/L Calcium (8.6-10.3) mg/dL Total Bilirubin (0.2-1.0) mg/dL AST (13-39) U/L ALT (7-52) U/L Alkaline Phosphatase (34-104) U/L C-Reactive Protein (< 5.00) mg/L Total Protein (6.4-8.9) g/dL Albumin (3.2-5.2) g/dL Globulin (2-4) g/dL Albumin/Globulin Ratio (1-3) Result Diagrams: 11/23/17 13:49 11/23/17 13:49 Lab Statement: Any lab studies that have been ordered have been reviewed, and results considered in the medical decision making process. Re-Evaluation - Re-Evaluation First Eval Change: Improved - pt's sx and vitals improved s/p meds and fluids - she still reports dysphagia however - will road test and contact ENT for consult Second Eval Change: Improved - Pt able to tolerate PO - discussed case w/ Dr. De La Cruz - okay to d/c EENT Course/Dx - Course Course Of Treatment: Patient presents 5 days postop with low-grade fever, wbc's of 13 and CRP in the 30s. She is here as she is been able to tolerate popsicles since surgery until today. Admits her medication has been hurting her throat so has not been taking it is much. Discussed case with Dr. De La Cruz who recommends 8 of Decadron in addition to her already received ceftriaxone, Toradol and IV fluids prior to discharge. He also already wrote for prednisone which is at her pharmacy - the patient is advised to pickle cutter medication and continue. Will also add amoxicillin and patient to follow-up with Dr. De La Cruz as originally discussed. If danger signs or symptoms present, patient will return to the emergency department. - Diagnoses Provider Diagnoses: Post-tonsillectomy pain Discharge - Sign-Out/Discharge Documenting (check all that apply): Discharge/Admit/Transfer - Discharge Plan Condition: Stable Disposition: HOME Prescriptions: Amoxicillin PO (*) [Amoxicillin 400 MG/5 ML SUSP*] 500 mg PO TID #1 bottle Patient Education Materials: Wound Healing and Your Diet (ED) Referrals: Amadou De La Cruz MD [Medical Doctor] - Additional Instructions: After discussion with Dr. De La Cruz, your presentation here today is average for that of a patient 5 days postop from tonsillectomy. For your comfort and potential infection, we will add an antibiotic, amoxicillin - please pick this up at your pharmacy. You were also given your first dose of steroid through the IV here tonight. Please continue the prednisone prescribed to you by Dr. De La Cruz - you may pick this up at your pharmacy tonight and take as directed. Continue to take your pain medication as directed and stay hydrated to prevent dehydration. It is also important that you stay nourished to aid in your healing process. See educational handout and modify based on your abilities to swallow (i.e. try healthy foods in smoothies versus chewing and swallowing whole foods). Keep ear follow-up appointment with Dr. De La Cruz as originally scheduled. *If you develop fever greater than 102F despite taking ibuprofen and acetaminophen, inability to swallow or difficulty breathing, neck pain or stiffness, return to the emergency department. - Billing Disposition and Condition Condition: STABLE Disposition: Home
[2017-11-23] MEDS ORDERED: Dexamethasone IV* 4 MG/ML 1 ML (4 MG) IV SLOW PU ONE (16:47)
[2017-11-23 17:37] VITALS: BP 120/65
== END 2017-11-23 17:30 | disposition home or self-care (01) ==
LOC: ED 12:41
DX: G89.18 Other acute postprocedural pain (principal); R07.0 Pain in throat; F17.210 Nicotine dependence, cigarettes, uncomplicated
CPT/HCPCS: 36415; 80053; 83605; 85025; 85610; 85730; 86140; 87040; 96374; 96375; 99282; J0696; J1100; J1885

== ENCOUNTER 2018-04-02 13:08 | Emergency (ER) | payer OTHER ==
[2018-04-02] MEDS ORDERED: Albuterol/Ipratropium NEB.SOL* Albuterol 2.5 MG/Ipratropium 0.5 MG 3 ML INH ONE ×2 (13:30→14:00)
[2018-04-02] MEDS ORDERED: predniSONE TAB* 20 MG PO ONE ×2 (13:31→13:36)
--- NOTE | 2018-04-02 14:19 | UC ---
Asthma HPI - HPI Summary HPI Summary: 33-year-old female comes to the [facility] in significant respiratory discomfort. She is breathing rapidly and wheezing. She states that she took multiple doses of albuterol without effect. In room 4 and DuoNeb treatment was started. She was given 60 mg of prednisone by mouth. DuoNeb treatment showed good results and she and the treatment was repeated. Nurse's note: since 2pm yesterday morning she started with runny nose, and then had a lot of wheezing and coughing since then. Pt has asthma. afebrile. - History of Current Complaint Chief Complaint: UCRespiratory Stated Complaint: URI Time Seen by Provider: 04/02/18 13:30 Hx Last Menstrual Period: 03/14/18 Pain Intensity: 2 - Allergy/Home Medications Allergies/Adverse Reactions: Allergies Allergy/AdvReac Type Severity Reaction Status Date / Time No Known Allergies Allergy Verified 04/02/18 13:19 Home Medications: Home Medications Albuterol 2.5MG/3ML (0.083%)* [Ventolin 2.5 MG/3 ML NEB.SERA*] 1 unit INH Q2HR PRN 04/02/18 [History Confirmed 04/02/18] Albuterol HFA INHALER* [Ventolin HFA Inhaler*] 4 puff INH Q2HR PRN 04/02/18 [ History Confirmed 04/02/18] PMH/Surg Hx/FS Hx/Imm Hx - Additional Past Medical History Additional PMH: Past medical history this patient is significant for asthma. She smokes half a pack a day. She has frequent bronchitis according to the patient. Family history significant for: -HTN -asthma Social Hx: works in home; has 6 year old. S/p byron; tosillectomy. Previously Healthy: Yes Other History Of: Negative For: HIV, Hepatitis B, Hepatitis C, Anticoagulant Therapy - Surgical History Surgical History: Yes Surgery Procedure, Year, and Place: csection x3. byron. T&A - Family History Known Family History: Positive: Diabetes, Other - cancer Negative: Cardiac Disease, Hypertension - Social History Alcohol Use: Occasionally Alcohol Amount: "I don't like ETOH" Substance Use Type: Marijuana Substance Use Comment - Amount & Last Used: RARE Smoking Status (MU): Light Every Day Tobacco Smoker Type: Cigarettes Amount Used/How Often: 1/2 PPD Have You Smoked in the Last Year: Yes Household Exposure Type: Cigarettes Review of Systems ENT: Nasal Discharge Respiratory: Shortness Of Breath, Other - wheezing Cardiovascular: Negative Gastrointestinal: Negative Genitourinary: Negative Is Patient Immunocompromised?: No All Other Systems Reviewed And Are Negative: Yes - Comments Additional Review of Systems Comments: A 12 point review of systems was completed and was significantly positive for wheezing and shortness of breath. The remainder of the review was negative except as stated above in the HPI. Physical Exam - Summary Physical Exam Summary: Appearance: The patient is well-appearing, is in no pain or distress, and is well-nourished. Eyes: Conjunctiva are clear. Pupils are equal and reactive to light and accommodation. Extra ocular muscle movement is intact. ENT: The hearing is grossly normal, the pharynx is normal, and the TMs are normal. There is no muffled or hoarse voice. No stridor. Neck: The neck is supple and there is no lymphadenopathy. Respiratory: The chest is nontender to palpation and without crepitus. The lungs reveal diffuse wheezing and intercostal retractions. Mild to moderate shortness of breath. Cardiovascular: Heart sounds reveal a regular rate and rhythm. There are no clicks, rubs or murmurs. There are no carotid bruits or thrills. Circulation is grossly intact. Abdomen: The abdomen is soft and nontender. There is no organomegaly. Bowel sounds are present and within normal limits. No point tenderness at McBurneys point. Musculoskeletal: Strength is intact. The patient moves all extremities. x. Neurological: The patient is alert. Motor and sensory are examination grossly intact. Speech is normal. Psychological: The patient displays age appropriate behavior Skin: Negative for rashes. Triage Information Reviewed: Yes Vital Signs: Initial Vital Signs Temp 98.5 F 04/02/18 13:14 Pulse 76 04/02/18 13:14 Resp 16 04/02/18 13:14 BP 130/90 04/02/18 13:14 Pulse Ox 98 04/02/18 13:14 Asthma Course/Dx - Course Course Of Treatment: 33-year-old with a history of asthma and anxiety reports to the urgent care center with significant shortness of breath and wheezing. After 2 DuoNeb patient was much improved although she was still anxious. Initial exam showed diffuse wheezing. Follow up exam showed much decreased wheezing with rare wheezes and rhonchi in the right lung. Patient was comfortable on follow-up exam and not retracting. I discussed with the patient the plan for her to go home and go to the emergency Department if her condition worsened. She voiced understanding. The patient's vital signs were stable and she was comfortable when she left the scene and care center. Patient's medications were reviewed. He shouldn't will recheck her blood pressure when she follows up in 2 days. - Differential Dx/Diagnosis Differential Diagnosis/HQI/PQRI: Acute Asthma, Bronchitis, Pneumonia, Pneumothorax Provider Diagnoses: asthma; bronchitis Discharge - Sign-Out/Discharge Documenting (check all that apply): Patient Departure All imaging exams completed and their final reports reviewed: No Studies - Discharge Plan Condition: Stable Disposition: HOME Prescriptions: Albuterol 2.5MG/3ML (0.083%)* [Ventolin 2.5 MG/3 ML NEB.SERA*] 2.5 mg INH Q6H #1 neb.sera MDD 6 Azithromycin TAB* [Zithromax TAB*] 250 mg PO DAILY #6 tab clonazePAM [Clonazepam] 1 mg PO DAILY #10 tablet MDD 2 predniSONE [Prednisone 20 MG TAB] 20 mg PO TID #9 tab MDD 3 Patient Education Materials: Asthma (DC), Panic Disorder (ED) Referrals: James Fonseca MD [Primary Care Provider] - Additional Instructions: WE DISCUSSED: PLEASE SEEK CARE AT THE EMERGENCY DEPARTMENT IF SYMPTOMS WORSEN OR IF NEW SYMPTOMS DEVELOP. FOLLOW UP WITH YOUR PRIMARY CARE PHYSICIAN IF CONDITION CONTINUES BEYOND 3 DAYS WITHOUT IMPROVEMENT. YOUR DIAGNOSIS IS: asthma, anxiety YOUR PRESCRIPTION RECOMMENDATION IS: zithromax, prednisone, albuterol for inhaler, clonazpam. OTHER INSTRUCTIONS: Hypertension Discharge Instructions: Your blood pressure reading today was 130/90, indicating HYPERTENSION. Follow- up with your primary care provider within 4 weeks for blood pressure check and appropriate recommendations and treatment, as needed. Use nebulizer for wheezing; take prednisone. Follow up with your doctor in [address] Fonseca. Go to ED for any increased wheezing or shortness of breath. - Billing Disposition and Condition Condition: STABLE Disposition: Home
[2018-04-02 14:20] VITALS: BP 122/66
== END 2018-04-02 15:00 | disposition home or self-care (01) ==
LOC: UCEAST 13:08
DX: J45.909 Unspecified asthma, uncomplicated (principal); F17.210 Nicotine dependence, cigarettes, uncomplicated
CPT/HCPCS: 99213; A9270-GY; G0463; J7512

== ENCOUNTER 2018-04-12 12:32 | Emergency (ER) | payer OTHER ==
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
[2018-04-12 13:53] LABS: EGFR Non-African American 109.5 (>60)
[2018-04-12 14:11] LABS: ABS Basophils 0.1 10^3/ul (0-0.2); ABS Eosinophils 0.3 10^3/ul (0-0.6); ABS Lymphocytes 2.5 10^3/ul (1.0-4.8); ABS Monocytes 0.6 10^3/ul (0-0.8); ABS Neutrophils 5.6 10^3/ul (1.5-7.7); ABS Nucleated RBC 0 10^3/ul; Eosinophil % 2.9 % (0-6); Hematocrit 39 % (35-47); Lymphocyte % 27.5 % (25-47); Mean Corpuscular HGB Conc 33 g/dl (31-36); Mean Corpuscular Hemoglobin 29 pg (27-31); Mean Corpuscular Volume 87 fL (80-97); Mean Platelet Volume 8.5 um3 (7.4-10.4); Nucleated Red Blood Cells % 0; Platelet Count 349 10^3/ul (150-450); Red Cell Distribution Width 13 % (10.5-15); White Blood Count 9.1 10^3/ul (3.5-10.8)
[2018-04-12 14:15] LABS: Lithium < 0.10 mmol/L (0.6-1.2)
[2018-04-13] MEDS ORDERED: LORazepam TAB(*) 1 MG PO ONE (01:15)
[2018-04-13 05:08] LABS: Urine Appearance Cloudy; Urine Blood 2+ (Negative); Urine Color Yellow; Urine Ketones Negative (Negative); Urine Protein Negative (Negative); Urine Red Blood Cell 2+(6-10/hpf) (Absent); Urine Specific Gravity 1.023 (1.010-1.030); Urine Urobilinogen Negative (Negative); Urine White Blood Cell 2+(11-20/hpf) (Absent)
--- NOTE | 2018-04-13 05:21 | ED ---
Progress - Progress Note Progress Note: Pt signed out from Dr. Caro pending transfer. She is waiting to transfer to [place] where there is believed to be a bed for her. Dx: depression Patient will be signed out to Dr. Michel at shift change, pending transfer. - Consult/PCP Time Called: 15:30 Course/Dx - Course Course Of Treatment: Pt signed out from Dr. Caro pending transfer. She is waiting to transfer to [place] where there is believed to be a bed for her. Dx: depression Patient will be signed out to Dr. Michel at shift change, pending transfer. - Diagnoses Provider Diagnoses: Depression Discharge - Sign-Out/Discharge Documenting (check all that apply): Sign-Out Patient, Receiving Sign-Out - from Dr. Caro Signdino out patient TO: Ambar Michel Receiving patient FROM: Jesse Caro - Discharge Plan Referrals: James Fonseca MD [Primary Care Provider] - - Attestation Statements Document Initiated by Scribe: Yes Documenting Scribe: Thiago Cruz Provider For Whom Terrell is Documenting (Include Credential): Neville Light MD Scribe Attestation: I, Thiago Cruz, scribed for Neville Light MD on 04/13/18 at 0537. Scribe Documentation Reviewed: Yes Provider Attestation: The documentation as recorded by the Thiago gray accurately reflects the service I personally performed and the decisions made by , Neville Light MD
--- NOTE | 2018-04-13 08:07 | ED ---
Progress - Progress Note Progress Note: This patient was signed out to Dr. Michel from Dr. Light, pending MHE. MHE was done by Dr. Ruiz at 0923 and the patient will be discharged with a dx of mood disorder. - Consult/PCP Time Called: 15:30 Course/Dx - Diagnoses Provider Diagnoses: Mood disorder Discharge - Sign-Out/Discharge Documenting (check all that apply): Patient Departure - Discharge Plan Condition: Stable Disposition: HOME Prescriptions: Cephalexin CAP* [Keflex CAP*] 500 mg PO Q12H #20 cap LORazepam TAB(*) [Ativan 1 MG TAB (*)] 1 mg PO Q6H PRN #30 tab MDD 4 PRN Reason: Anxiety Referrals: James Fonseca MD [Primary Care Provider] - - Billing Disposition and Condition Condition: STABLE Disposition: Home - Attestation Statements Document Initiated by Scribe: Yes Documenting Scribe: Russell Sheppard Provider For Whom Scribe is Documenting (Include Credential): Ambar Michel MD Scribe Attestation: Russell Deal, scribed for Ambar Michel MD on 04/14/18 at 2018. Scribe Documentation Reviewed: Yes Provider Attestation: The documentation as recorded by the Russell gray accurately reflects the service I personally performed and the decisions made by Ambar cool MD
--- NOTE | 2018-04-13 09:03 | PN ---
ED Flex Patient Progress Note Date of Service: 04/12/18 Subjective: This is a 33 year-old F who is pending admission to [facility] / transfer to another psychiatric facility / discharge to home / or being observed secondary to SI. Pt. examined in bed 21 around 0800. She is sitting in bed eating breakfast. She note increased cough and wheeze over the last week. She recently finished antibx and steroids. She notes hx of asthma and smoking. Pt. states she uses inhaler at home. Requesting breathing treatment. U/A is nitrate positive, pt. states she gets frequent utis. Will start on keflex based on previous cultures. Objective: Vitals: Most recent vital signs documented below. General NAD, Alert and oriented x3. Lungs: Diffuse mile inspiratory and expiratory wheeze Laboratory: Current laboratory results documented below. Assessment: Pending MHE. Will give duoneb treatment for wheeze. Will start pt. on Keflex for UTI. Plan: Pending psychiatric or medical consultation to observe / transfer / admit / discharge will follow up daily . Vital Signs Temp Pulse Resp BP Pulse Ox 98.2 F 91 16 123/78 96 04/13/18 04:53 04/13/18 04:53 04/13/18 04:53 04/13/18 04:53 04/13/18 04:53 Lab Results - Entire Visit 04/13/18 04/13/18 04/12/18 04:45 04:45 13:19 WBC RBC Hgb Hct MCV MCH MCHC RDW Plt Count MPV Neut % (Auto) Lymph % (Auto) [place] % (Auto) Eos % (Auto) Baso % (Auto) Absolute Neuts (auto) Absolute Lymphs (auto) Absolute Monos (auto) Absolute Eos (auto) Absolute Basos (auto) Absolute Nucleated RBC Nucleated RBC % Sodium 140 Potassium 3.7 Chloride 109 Carbon Dioxide 25 Anion Gap 6 BUN 7 Creatinine 0.63 Est GFR ( Amer) 132.5 Est GFR (Non-Af Amer) 109.5 BUN/Creatinine Ratio 11.1 Glucose 112 H Calcium 8.8 Total Bilirubin 0.30 AST 10 L ALT 11 Alkaline Phosphatase 73 Total Protein 6.3 L Albumin 4.0 Globulin 2.3 Albumin/Globulin Ratio 1.7 TSH 0.57 Beta HCG, Quant < 0.60 Urine Color Yellow Urine Appearance Cloudy Urine pH 5.0 Ur Specific [place] 1.023 Urine Protein Negative Urine Ketones Negative Urine Blood 2+ A Urine Nitrate Positive A Urine Bilirubin Negative Urine Urobilinogen Negative Ur Leukocyte Esterase 1+ A Urine WBC (Auto) 2+(11-20/hpf) A Urine RBC (Auto) 2+(6-10/hpf) A Ur Squamous Epith Cells Present A Urine Bacteria 1+ A Urine Glucose Negative Salicylates < 2.50 Urine Opiates Screen None detected Acetaminophen < 15 Ur Barbiturates Screen None detected Ur Phencyclidine Scrn None detected Ur Amphetamines Screen None detected U Benzodiazepines Scrn None detected [place] < 0.10 L Urine Cocaine Screen None detected U Cannabinoids Screen Presumptive positive A Serum Alcohol < 10 04/12/18 13:19 WBC 9.1 RBC 4.50 Hgb 13.0 Hct 39 MCV 87 MCH 29 MCHC 33 RDW 13 Plt Count 349 MPV 8.5 Neut % (Auto) 61.7 Lymph % (Auto) 27.5 [place] % (Auto) 7.1 H Eos % (Auto) 2.9 Baso % (Auto) 0.8 Absolute Neuts (auto) 5.6 Absolute Lymphs (auto) 2.5 Absolute Monos (auto) 0.6 Absolute Eos (auto) 0.3 Absolute Basos (auto) 0.1 Absolute Nucleated RBC 0 Nucleated RBC % 0 Sodium Potassium Chloride Carbon Dioxide Anion Gap BUN Creatinine Est GFR ( Amer) Est GFR (Non-Af Amer) BUN/Creatinine Ratio Glucose Calcium Total Bilirubin AST ALT Alkaline Phosphatase Total Protein Albumin Globulin Albumin/Globulin Ratio TSH Beta HCG, Quant Urine Color Urine Appearance Urine pH Ur Specific [place] Urine Protein Urine Ketones Urine Blood Urine Nitrate Urine Bilirubin Urine Urobilinogen Ur Leukocyte Esterase Urine WBC (Auto) Urine RBC (Auto) Ur Squamous Epith Cells Urine Bacteria Urine Glucose Salicylates Urine Opiates Screen Acetaminophen Ur Barbiturates Screen Ur Phencyclidine Scrn Ur Amphetamines Screen U Benzodiazepines Scrn [place] Urine Cocaine Screen U Cannabinoids Screen Serum Alcohol
[2018-04-13] MEDS ORDERED: Albuterol HFA INHALER* 8 gm MDI INH ONE (09:47)
[2018-04-13 10:02] VITALS: BP 127/84
[2018-04-13] MEDS ORDERED: Albuterol/Ipratropium NEB.SOL* Albuterol 2.5 MG/Ipratropium 0.5 MG 3 ML INH ONE (10:16)
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
--- NOTE | 2018-04-15 07:09 | ED ---
Progress - Progress Note Progress Note: This patient was signed out to Dr. Michel from Dr. Light, pending MHE. MHE was done by Dr. Ruiz at 0923 and the patient will be discharged with a dx of mood disorder. UPDATE: Patient's preliminary urine culture reveals greater than 100,000 Escherichia coli. Patient was started on Keflex. Final results pending. - Consult/PCP Time Called: 15:30 Course/Dx - Course Course Of Treatment: Pt signed out from Dr. Caro pending transfer. She is waiting to transfer to [place] where there is believed to be a bed for her. Dx: depression Patient will be signed out to Dr. Michel at shift change, pending transfer. - Diagnoses Provider Diagnoses: Mood disorder Discharge - Sign-Out/Discharge Documenting (check all that apply): Post-Discharge Follow Up - Discharge Plan Condition: Stable Disposition: HOME Prescriptions: Cephalexin CAP* [Keflex CAP*] 500 mg PO Q12H #20 cap LORazepam TAB(*) [Ativan 1 MG TAB (*)] 1 mg PO Q6H PRN #30 tab MDD 4 PRN Reason: Anxiety Referrals: James Fonseca MD [Primary Care Provider] - - Billing Disposition and Condition Condition: STABLE Disposition: Home
== END 2018-04-13 00:15 | disposition home or self-care (01) ==
LOC: ED 12:32
DX: F39 Unspecified mood [affective] disorder (principal); F32.9 Major depressive disorder, single episode, unspecified; F41.9 Anxiety disorder, unspecified; N39.0 Urinary tract infection, site not specified; F43.10 Post-traumatic stress disorder, unspecified
CPT/HCPCS: 36415; 80053; 80178; 80307; 80320; 80329; 81003; 81015; 84443; 84702; 85025; 87077; 87086; 87186; 99283; A9270-GY; G0480

== ENCOUNTER 2018-09-10 12:39 | Emergency (ER) | payer OTHER ==
--- NOTE | 2018-09-10 12:55 | UC ---
Respiratory Complaint HPI - History of Current Complaint Chief Complaint: UCRespiratory Stated Complaint: SOB ASTHMA Time Seen by Provider: 09/10/18 12:53 Hx Last Menstrual Period: 08/27/18 Pain Intensity: 5 - Allergies/Home Medications Allergies/Adverse Reactions: Allergies Allergy/AdvReac Type Severity Reaction Status Date / Time No Known Allergies Allergy Verified 09/10/18 12:49 Home Medications: Home Medications LORazepam [Lorazepam] 1 tab PO 09/10/18 [History] Lurasidone(*) [Latuda] 1 tab PO DAILY 09/10/18 [History Confirmed 09/10/18] PMH/Surg Hx/FS Hx/Imm Hx Other History Of: Negative For: HIV, Hepatitis B, Hepatitis C, Anticoagulant Therapy - Surgical History Surgical History: Yes Surgery Procedure, Year, and Place: Ceserian section x3. cholecystectomy. T&A - Family History Known Family History: Positive: Diabetes, Other - cancer Negative: Cardiac Disease, Hypertension - Social History Alcohol Use: Occasionally Alcohol Amount: "I don't like ETOH" Substance Use Type: Marijuana Substance Use Comment - Amount & Last Used: frequent Smoking Status (MU): Light Every Day Tobacco Smoker Type: Cigarettes Amount Used/How Often: 1/2 PPD Have You Smoked in the Last Year: Yes Household Exposure Type: Cigarettes Physical Exam Vital Signs: Initial Vital Signs Temp 98 F 09/10/18 12:45 Pulse 100 09/10/18 12:45 Resp 22 09/10/18 12:45 BP 123/91 09/10/18 12:45 Pulse Ox 99 09/10/18 12:45 Discharge - Discharge Plan Referrals: James Fonseca MD [Primary Care Provider] -
[2018-09-10] MEDS ORDERED: Albuterol/Ipratropium NEB.SOL* Albuterol 2.5 MG/Ipratropium 0.5 MG 3 ML INH ONE ×2 (12:59→13:29)
[2018-09-10] MEDS ORDERED: Acetaminophen TAB* 325 MG PO ONE (13:00)
--- NOTE | 2018-09-10 13:08 | UC ---
Respiratory Complaint HPI - HPI Summary HPI Summary: Patient presents to urgent care reporting asthma attack. Patient suggesting morning she woke up with a little bit of a cough and congestion. Patient states that today she became more short of breath and wheezy. Patient states when she takes a deep breath her lungs hurt. Patient is coughing up some white sputum. No fevers but does have chills. Patient states she has some sinus congestion. Patient denies abdominal pain. No nausea vomiting. 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 Patient concerned start prednisone and again although in the past she's take it without difficulty. Patient denies headache. Patient has sick contacts. Patient has not taken anything for pain. Patient has used albuterol at home with mild improvement. Patient states in the past DuoNeb has worked better for her. PT is not . remote hospitalization, no intubations medications reviewed this visit - History of Current Complaint Chief Complaint: UCRespiratory Stated Complaint: SOB ASTHMA Time Seen by Provider: 09/10/18 12:53 Hx Obtained From: Patient Hx Last Menstrual Period: 08/27/18 Onset/Duration: Gradual Onset Severity Initially: Mild Severity Currently: Moderate Pain Intensity: 5 Pain Scale Used: 0-10 Numeric Character: Cough: Productive Associated Signs And Symptoms: Positive: Wheezing, URI, Nasal Congestion, Sinus Discomfort - Allergies/Home Medications Allergies/Adverse Reactions: Allergies Allergy/AdvReac Type Severity Reaction Status Date / Time No Known Allergies Allergy Verified 09/10/18 12:49 Home Medications: Home Medications LORazepam [Lorazepam] 1 tab PO 09/10/18 [History] Lurasidone(*) [Latuda] 1 tab PO DAILY 09/10/18 [History Confirmed 09/10/18] PMH/Surg Hx/FS Hx/Imm Hx Previously Healthy: Yes Respiratory History: Asthma Psychological History: Anxiety, Depression, Bipolar Disorder Other History Of: Negative For: HIV, Hepatitis B, Hepatitis C, Anticoagulant Therapy - Surgical History Surgical History: Yes Surgery Procedure, Year, and Place: Ceserian section x3. cholecystectomy. T&A - Family History Known Family History: Positive: Diabetes, Other - cancer, Non-Contributory Negative: Cardiac Disease, Hypertension - Social History Lives: With Family Alcohol Use: Occasionally Alcohol Amount: "I don't like ETOH" Substance Use Type: Marijuana Substance Use Comment - Amount & Last Used: frequent Smoking Status (MU): Light Every Day Tobacco Smoker Type: Cigarettes Amount Used/How Often: 1/2 PPD Have You Smoked in the Last Year: Yes Household Exposure Type: Cigarettes Review of Systems All Other Systems Reviewed And Are Negative: Yes Constitutional: Positive: Fatigue ENT: Positive: Nasal Discharge Respiratory: Positive: Shortness Of Breath, Cough Physical Exam - Summary Physical Exam Summary: Vital Signs Reviewed: Yes A+Ox3, no distress Eyes: Conjunctiva Clear, VIJAY. EOM intact and full ENT: Hearing grossly normal TM x 2 clear, turbinates inflammed and boggy, + PND, mmoist, uvula midline, no exudate, no erythema Neck: Positive: Supple Respiratory: Positive: Tight BS throughout. End exp wheeze bases b/l Pt with discomfort with deep breath, mild cough Cardiovascular: RRR nl s1, s2 no m/r CBT <2 sec abd soft + BS nt/nd no guarding, no distension Musculoskeletal Exam: ETIENNE x 4 without difficulty Strength Intact, ROM Intact Neurological: Positive: Alert, + sensation throughout Psychological: Positive: Normal Response To Family Skin: Positive: no rash, no ecchymosis Triage Information Reviewed: Yes Vital Signs: Initial Vital Signs Temp 98 F 09/10/18 12:45 Pulse 100 09/10/18 12:45 Resp 22 09/10/18 12:45 BP 123/91 09/10/18 12:45 Pulse Ox 99 09/10/18 12:45 Re-Evaluation - Re-Evaluation First Eval Change: Improved - Pt receiving first duoneb - improved aeration - BS throughout Comment: Patient half weeks who first DuoNeb. Patient improved. Patient states she feels better. Patient states she doesn't feel as tight and pain is getting better. Patient with increased diffuse wheezing. Patient with a cough nonproductive. We'll finish neb do chest x-ray recommended a second DuoNeb. Continue to monitor closely. Second Eval Re-Evaluation Time: 13:49 Change: Improved Comment: Pt states feels breathing improved. Continues with coarse wheeze. Pt continues with pleuritic pain. Shallow resps. cynthia finish neb Pt previously with Qvar - has not taken > 1 year. Pt states feels anxious about going home. Appropriately concerned about discomfort - d/w pt regarding transfer to ED - pt in agreement. will place line. IVF. toradol. EMS transfer. Additional monitoring Respiratory Course/Dx - Course Course Of Treatment: Patient with a history of asthma. Patient presents to urgent care with 24 hours of progressive cough chest tightness and wheeze. Patient's used her albuterol neb at home with little improvement. Patient states she feels like her lungs are moving very well. No abdominal pain. Patient also with a mild URI. Patient states typically she is a DuoNeb at [facility] Specialist have a DuoNeb at home. Patient previously had a bad reaction to prednisone would like to try not to take today possible. Will give duoneb, check flu, cxr, and close monitor - Differential Dx/Diagnosis Provider Diagnosis: Asthma exacerbation, Acute bronchitis - Physician Notification/Consults Discussed Patient Care With: Vinny Garcia - ED - 14:07 Discharge - Sign-Out/Discharge Documenting (check all that apply): Patient Departure All imaging exams completed and their final reports reviewed: Yes - Discharge Plan Condition: Stable Disposition: TRANS HIGHER LVL OF CARE FAC Patient Education Materials: Asthma (ED) Referrals: James Fonseca MD [Primary Care Provider] - - Billing Disposition and Condition Condition: STABLE Disposition: Trans Higher Lvl of Care Fac
[2018-09-10 13:28] LABS: Influenza A Molecular NEGATIVE (Negative); Influenza B Molecular NEGATIVE (Negative)
[2018-09-10] MEDS ORDERED: NS 0.9% 1000 ML** 1,000 ML IV ONE (13:58)
[2018-09-10 14:07] VITALS: BP 129/81
[2018-09-10] MEDS ORDERED: Ketorolac INJ* 30 MG/ML 1 ML VIAL IV PUSH ONE (14:07)
== END 2018-09-10 14:23 | disposition short-term general hospital (02) ==
LOC: UCEAST 12:39
DX: J45.901 Unspecified asthma with (acute) exacerbation (principal)
CPT/HCPCS: 71046; 96360; 96374; A9270-GY; J1885

== ENCOUNTER 2018-10-19 12:00 | Emergency (ER) | payer OTHER ==
[2018-10-19] MEDS ORDERED: Albuterol 2.5 MG/3 ML NEB.SOL* (0.083%) INH ONE (12:17)
[2018-10-19] MEDS ORDERED: Magnesium Sulfate 2 GM IV* 2 GM/50 ML BAG IVPB ONE (12:18)
--- OUTSIDE RECORDS SUMMARY | 2018-10-19 12:27 | XMS REPORT | Continuity of Care Document ---
:1985 External Reference #:[id number] Author Name Mariah Olivera PA-C Address [address] [address] Care Team Providers Name Role Phone Lupis Chou MD Primary Care Physician Unavailable Payers Date Identification Numbers Payment Provider Subscriber Effective: 2017 Policy Number: [id number] [facility] Ирина Michele Group Name: [id number] [address] PayID: [id number] [place] [address] Expires: 2017 Policy Number: [id number] Medicaid Only 21 And Over Ирина Michele PayID: [id number] [place] [address] Advance Directives Description No Information Available Problems Description No Information Family History Date Family Member(s) Observation Comments General Asthma General Migraine Social History Type Date Description Comments Sex Unknown Occupation Unemployed Tobacco Use Start: Unknown Current Cigarette Smoker 1-5 Smoked for 1 year. Cigarettes Daily Tobacco Use Start: Unknown Never Smoked Cigars Tobacco Use Start: Unknown Never Smoked A Pipe Smokeless Tobacco Never Used Smokeless Tobacco ETOH Use Currently occasionally consumes alcohol Tobacco Use Start: Unknown Patient is a current smoker, smokes every day Smoking Status Reviewed: 10/19/18 Patient is a current smoker, smokes every day Allergies, Adverse Reactions, Alerts Description No Known Drug Allergies Medications Active Medications SIG Qnty Indications Ordering Date Provider Lorazepam Take 1 Tablet Twice A Unknown 1mg Tablets Day And Take 1/2 Tablet Additionally as Needed For Anxiety Symbicort Jose Kennedy M.DLynette 160-4.5mcg/Act Aerosol Albuterol Sulfate Jose Kennedy HFA MLynetteDLynette 108(90Base) mcg/Act Aerosol Amoxicillin/Clavulan Lupis Chou MD ate Potassium 875-125mg Tablets History Medications Prednisone 1 by mouth every day 3tabs Amadou Davies 11/26/2017 - 50mg Tablets MD Dorothy 10/18/2018 Hydrocodone 15 milliliters by 420ml Amadou Davies 11/26/2017 - Bitartrate/Acetaminop mouth every 6 hours MD Dorothy 10/18/2018 hen as needed pain 7.5-325mg/15ML Solution Prednisone 1 tablet by mouth 5tabs Amadou Davies 11/20/2017 - 50mg Tablets daily MD Dorothy 10/18/2018 Hydrocodone 15 milliliters by 420ml Amadou Davies 11/18/2017 - Bitartrate/Acetaminop mouth every 6 hours MD Dorothy 10/18/2018 hen as needed pain 7.5-325mg/15ML Solution Clonazepam Take 1 Tablet By Unknown - 0.5mg Mouth Up To 3 Times 10/18/2018 Tablets Daily as Needed Amoxicillin/Clavulana 5 milliliters by Unknown - te Potassium mouth 3 times a day 10/18/2018 for 10 days 250-62.5mg/5ML Suspension Rec Xeniaiva Respdavidt Jose Kennedy M.D. - 10/18/2018 1.25mcg/Act Aerosol Immunizations Description No Information Available Vital Signs Date Vital Result Comment 10/19/2018 10:33am Body Temperature 98.6 F Weight 195.00 lb Weight 88.452 kg Height 62 inches 5'2" Height in cm's 157.5 cm BMI (Body Mass Index) 35.7 kg/m2 11/26/2017 11:35am Weight 186.00 lb Weight 84.370 kg Height 62 inches 5'2" Height in cm's 157.5 cm BMI (Body Mass Index) 34.0 kg/m2 10/29/2017 9:16am Weight 191.00 lb Weight 86.638 kg Height 62 inches 5'2" Height in cm's 157.5 cm BMI (Body Mass Index) 34.9 kg/m2 Results Test Date Facility Test Result H/L Range Note Laboratory test 11/19/2017 [facility] Surgical SEE RESULT 1 finding c/o Department of [place] [address] [phone] 1 SEE RESULT BELOW Name: ИРИНА MICHELE : [address]: Amadou De La Cruz MD Acct: [id number] Unit: [id number] AGE: 32 Location: OR Re11/19/17 SEX: F Status: [facility] SPEC: [id number] JOSUE: 11/19/17- [facility] DR: Amadou De La Cruz MD REQ: [id number] RECD: 11/19/17 STATUS: SOUT _ ORDERED: LEVEL 3/2 FINAL DIAGNOSIS 1. Oropharynx, right tonsil, tonsillectomy: -- Tonsil tissue with follicular lymphoid hyperplasia. 2. Oropharynx, right tonsil, tonsillectomy: -- Tonsil tissue with follicular lymphoid hyperplasia. PRE-OPERATIVE DIAGNOSIS Hypertrophy of tonsils and adenoids GROSS DESCRIPTION 1. The specimen is received in formalin labeled, Right Tonsil, and consists of a 4.0 by up to 1.9 x 1.4 cm klein-pink irregular to ovoid cerebriform and focally cauterized tonsil with a small amount of adherent red-brown blood clot. The cut surface is glistening klein-pink with normal crypts. The specimen is inked, serially sectioned and high school admissions representative sections are submitted in one cassette. 2. The specimen is received in formalin labeled, Left Tonsil, and consists of a 3.2 x 2.0 x 1.4 cm klein-pink ovoid cerebriform and focally cauterized tonsil. The cut surface is glistening klein-pink with normal crypts. The specimen is inked, serially sectioned and high school admissions representative sections are submitted in one cassette. Signed by and Reported on: Rj Andrews MD 05/31 0952 END OF REPORT DEPARTMENT OF PATHOLOGY, [address] [place] [address] Rj Andrews M.D. Director [facility] # [id number] Procedures Date Code Description Status 10/19/2018 55567 Nasal Endoscopy, Diagnostic Completed 11/19/2017 57374 Tonsil & Adenoid, Over 12 Completed Encounters Type Date Location Provider Dx Diagnosis Office Visit 10/19/2018 [place] Mariah Olivera J01.81 Other acute 10:45a 06/14/07 PA-C recurrent sinusitis J45.42 Moderate persistent asthma with status asthmaticus R05 Cough Office Visit 10/29/2017 9:45a [place] Amadou Lerma35.3 Hypertrophy of 06/14/07 MD Dorothy tonsils with hypertrophy of adenoids Plan of Treatment 10/19/2018 - Mariah Olivera PA-CJ01.81 Other acute recurrent tmpqnkaezW87.42 Moderate persistent asthma with status [id number] CoughNew Xrays:Chest X- ray PA & Lateral, Ordered: 10/19/18
--- OUTSIDE RECORDS SUMMARY | 2018-10-19 12:28 | XMS REPORT | Continuity of Care Document ---
:1985 External Reference #:[id number] Author Name Jose Kennedy M.D. Address [address] [place] [address] Care Team Providers Name Role Phone Lupis Chou M.D. Care Team Information Department Assistant Unavailable Lupis Chou M.D. Primary Care Physician Unavailable Payers Date Identification Numbers Payment Provider Subscriber Effective: Policy [facility]: [id number] [facility] Group Number: SHEEBA # [id number] Group Name: Medicaid [address] [address] PayID: [id number] Advance Directives Description No Information Available Problems Date Description Provider Status Onset: 09/12/2018 Asthma without status asthmaticus Jose Kennedy M.D. Active Family History Date Family Member(s) Observation Comments General family history unknown Social History Type Date Description Comments Sex Unknown Marital Status Legal Status: Never Lives With Children Lives With Sons Lives With Daughter Home Environment Does not use air manager battery Home Environment Does not have an air conditioner Home Environment Stairs are present Home Environment Unfinished Basement Home Environment The basement is damp Home Environment Cotton Comforter Home Environment Mattress is 3 years old Home Environment Mattress is not encased in an allergy proof case Home Environment No Mattress Cover Home Environment Regular Mattress Home Environment Pillows are not encased in an allergy proof case Home Environment Pillows contain feathers Home Environment Pillows are polyester Home Environment Does not use a dehumidifier Home Environment There are no draperies in the home Home Environment The home is not dxe Home Environment The floors are carpeted Home Environment The floors are tile Home Environment Uses baseboard heating Home Environment Uses hot water heating Home Environment Uses natural gas heating Home Environment Lives in an old house in the [facility] Home Environment Water Source: [facility] Smoke-Free Home is smoke-free Pets None Occupation unemployed ETOH Use Rarely consumes alcohol Tobacco Use Start: Unknown Patient is a current smoker, 1 cig- a pack a day smokes every day Smoking Status Reviewed: 09/13/18 Patient is a current smoker, 1 cig- a pack a day smokes every day Allergies, Adverse Reactions, Alerts Date Description Reaction Status Severity Comments 09/12/2018 Prednisone Active disassociated Medications Medication Date Status Form Strength Qnty SIG Indications Ordering Provider Amoxicillin/C / Active Tablets 875-125mg Unknown lavulanate 0000 Potassium Ipratropium / Active Solution 0.5-2.5(3) Inhale Unknown [place]/Albut 0000 mg/3ML Contents Of 1 gurwinder Sulfate Vial Via Nebulizer Every 6 Hours as Needed For Wheezing/Shor ness Of Breath Ventolin HFA / Active Aerosol 108(90Base 8gm inhale 2 Jose 0000 ) mcg/Act puffs every 6 Kennedy, hours as M.D. needed for wheezing/shor ness of breath Divalproex / Active Tablets DR 500mg Unknown Sodium 0000 Lorazepam / Active Tablets 1mg Unknown 0000 Latuda / Active Tablets 60mg Unknown 0000 Medical / Active Unknown [place] 0000 Symbicort / Active Aerosol 160-4.5mcg 2 inhalations Unknown 0000 /Act am&pm Spiriva / Active Aerosol 1.25mcg/Ac 2 puffs once Unknown Respimat 0000 t daily Immunizations Description No Information Available Vital Signs Date Vital Result Comment 09/23/2018 8:40am Height 62 inches 5'2" Weight 197.00 lb Weight 89.359 kg Respiratory Rate 16 /min Heart Rate 74 /min O2 % BldC Oximetry 95 % BP Systolic 117 mmHg BP Diastolic 80 mmHg BMI (Body Mass Index) 36.0 kg/m2 09/19/2018 4:50pm Height 62 inches 5'2" Weight 193.00 lb Weight 87.545 kg Respiratory Rate 18 /min Heart Rate 96 /min O2 % BldC Oximetry 97 % BP Systolic 111 mmHg BP Diastolic 62 mmHg Asthma Control Test 10 Fractional Exhaled Nitric Oxide 12 BMI (Body Mass Index) 35.3 kg/m2 09/12/2018 4:22pm Height 62 inches 5'2" Weight 186.00 lb Weight 84.370 kg Respiratory Rate 24 /min Heart Rate 83 /min Body Temperature 98.5 F BP Systolic 106 mmHg BP Diastolic 87 mmHg Asthma Control Test 9 Fractional Exhaled Nitric Oxide 66 BMI (Body Mass Index) 34.0 kg/m2 Results Description No Information Available Procedures Date Code Description Status 09/23/2018 20607 Skin Test Scratch # Of Units ____ Completed 09/19/2018 40310 Nitric Oxide Gas Determination Completed 09/19/2018 28451 Pre PFT Completed 09/12/2018 14957 Nitric Oxide Gas Determination Completed 09/12/2018 99212 Pulmonary Function Test Completed Encounters Type Date Location Provider Dx Diagnosis Office Visit 09/19/2018 5:00p Arina Kennedy M.D. J45.998 Other asthma Office Visit 09/12/2018 4:00p Arina Kennedy M.D. J45.998 Other asthma Plan of Treatment Future Appointment(s):12/23/2018 11:40 am - Jose Kennedy M.D. at [place]
--- OUTSIDE RECORDS SUMMARY | 2018-10-19 12:28 | XMS REPORT | Continuity of Care Document ---
:1985 External Reference #:[id number] Author Name Radha Friedman Care Team Providers Name Role Phone James Fonseca MD Primary Care Physician Unavailable Payers Date Identification Numbers Payment Provider Subscriber Expires: 2017 Policy Number: [id number] Seun Michele Group Number: [id number] [address] PayID: [id number] [place] [address] Expires: 2017 Policy Number: [id number] Medicaid Ирина Michele Group Name: 1 1 [address] PayID: [id number] [place] [address] Effective: 2017 Policy Number: [id number] Medicaid Ирина Michele Expires: 2017 Group Name: 1 1 [address] PayID: [id number] [place] [address] Effective: 2017 Policy Number: [id number] Seun Michele Group Name: [id number] [address] PayID: [id number] [place] [address] Advance Directives Description No Information Available Problems Active Problems Provider Date Bipolar II disorder David Grant NP Onset: 09/16/2016 H/O: depression David Grant NP Onset: 09/16/2016 Posttraumatic stress disorder David Grant NP Onset: 09/16/2016 Disturbance in sleep behavior Janice Guerrero MD Onset: 08/30/2015 Migraine without aura, not refractory Stephie Valle M.D. Onset: 01/04/2012 Asthma without status asthmaticus Janice Guerrero MD Onset: 08/30/2015 Methicillin resistant Staphylococcus Gage Potts M.D. Onset: 2011 aureus Obesity Janice Guerrero MD Onset: 08/30/2015 Resolved Problems Cellulitis Gage Potts M.D. Onset: 04/27/2012 Resolved: 09/17/2016 Exacerbation of asthma Janice Guerrero MD Onset: 03/03/2016 Resolved: 09/17/2016 Family History Date Family Member(s) Observation Comments General Breast Cancer Father Unknown Mother Unknown Social History Type Date Description Comments Sex Unknown Marital Status Single Lives With Son and daughter Occupation Currently Working ETOH Use 12/10/2017 Drinks Alcoholic Beverages Rarely Tobacco Use Start: Unknown Patient is a current pack every 2 1/2 smoker, smokes every days day Recreational Drug Use Regularly uses Marijuana Smoking Status Reviewed: 10/18/18 Patient is a current pack every 2 1/2 smoker, smokes every days day Exercise Type/Frequency Does not exercise Allergies, Adverse Reactions, Alerts Active Allergies Reaction Severity Comments Date Sertraline dyspnea 12/21/2017 Inactive Allergies NKDA 10/22/2011 Medications Active Medications SIG Qnty Indications Ordering Provider Date Fluconazole take one tablet 2tabs H66.92 Lupis Chou MD 10/18/2018 150mg today; repeat in Tablets 2 days Amoxicillin/Clavulana 1 by mouth twice 28tabs J45.901 Lupis Chou MD 06/2018 te Potassium a day 875-125mg Tablets Clonazepam 1/2-1 tab 4x a 60tabs F41.9 James Longoria 12/10/2017 1mg Tablets day as needed Darin Fonseca,TASIAP Proair HFA 2 puffs four 8.500gm Velia Kapoor, 05/19/2017 108(90Base) times a day as 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 mcg/Act Aerosol needed History Medications Azithromycin take 2 tablets 6tabs J45.901 Lupis Chou 09/12/2018 - 250mg Tablets today; then one 09/12/2018 tablet daily Cephalexin three times a 21caps James Longoria 02/10/2018 - 500mg Capsules day by mouth Marian, 09/12/2018 Darin,MEETA Ciprofloxacin HCL 1 twice a day x 10tabs James Longoria 02/04/2018 - 250mg Tablets 5 days Marian, 02/09/2018 Darin,FACP Fluoxetine HCL 1 by mouth 30caps James Longoria 02/04/2018 - 20mg Capsules every day Ida, 09/11/2018 M.D.,FACP Fluoxetine HCL take one 30caps James Longoria 12/21/2017 - 10mg Capsules capsule by Ida, 02/04/2018 mouth once M.D.,FACP daily in the morning Prazosin HCL Take 3 Capsules 90caps James Longoria 12/10/2017 - 2mg Capsules By Mouth AT Ida, 09/11/2018 Bedtime M.D.,FACP Tizanidine HCL 1 three times a 30tabs James Longoria 12/10/2017 - 4mg Tablets day as needed Ida, 09/11/2018 M.D.,FACP [place] Carbonate [facility] James Longoria 12/10/2017 - 300mg in the morning Ida, 09/11/2018 Capsules and 2 every M.D.,FACP night at bedtime (3/day) Percocet 1 tab every 8h 30tabs [place] 08/05/2017 - 5-325mg Tablets as needed Néstor 12/10/2017 M.DLynette Macrobid one tab every 14caps [facility] 06/27/2017 - 100mg Capsules 12 hours PRATIMA Kapoor 11/26/2017 Bactrim DS one tab twice a 14tabs N39.0 [facility] 06/23/2017 - 800-160mg Tablets day for 7 days PRATIMA Kapoor 11/26/2017 No Active Medications Unknown 05/19/2017 - 05/19/2017 Clonazepam take 1 tablet 120tabs F41.9 James Longoria 05/19/2017 - 0.5mg Tablets up to 4 times Ida, 12/10/2017 daily as needed M.D.,FACP Nystatin topical twice a 30units B37.9 [facility] 05/19/2017 - [id number]/GM Powder day as needed PRATIMA Kapoor 11/26/2017 Latuda take 1 tablet Unknown 03/19/2016 - 80mg Tablets by mouth at 09/07/2016 bedtime Prednisone 30mg daily for 42tabs J45.901 Janice 03/09/2016 - 10mg Tablets 1 week, 20mg MD Yolanda 09/07/2016 daily for 1 week, 10 mg daily for 1 week Robitussin DM 5ml every 4-6 236ml J45.901 [facility] 03/03/2016 - 100-10mg/5ML hrs as needed MD Yolanda 05/19/2017 Syrup for cough Ventolin HFA 1 unit puff 8gm J45.901 [facility] 03/03/2016 - 108(90Base) every 6 hours MD Yolanda 05/19/2017 mcg/Act Aerosol as needed Azithromycin 2 tab by mouth 6tabs J45.901 Stephie 08/27/2015 - 250mg Tablets day 1 then 1 Darin Valle 2016 tab by mouth day 2-5 Singulair 1 by mouth 90tabs J45.901 Stephie 08/27/2015 - 10mg Tablets every day Darin Valle 02/26/2016 Loratadine 1 by mouth 30tabs J45.901 Stephie 08/27/2015 - 10mg Tablets every day Darin Valle 2016 Prednisone 60mg daily J45.41 Unknown 08/16/2015 - 20mg Tablets 03/09/2016 Sertraline HCL 1 tab po every 30tabs F41.9 Stephie 04/25/2015 - 100mg Tablets day Darin Valle 08/27/2015 Clonazepam take 1 tablet 60tabs F41.9 Stephie 04/25/2015 - 0.5mg Tablets up to 2 times Darin Valle 04/25/2015 daily as needed Clonazepam take 1 tablet 30tabs F41.9 Stephie 04/25/2015 - 0.5mg Tablets up to 2 times Darin Valle 2016 daily as needed Methylprednisolone (Danilo) take 6 tabs on 21tabs J45.20 David Rivers, 2014 - 4mg day 1, 5 tabs 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 04/25/2015 Tablets on day 2, 4 tabs on day 3, 3 tabs on day 4, 2 tabs on day 5, 1 tab on day 6 Doxycycline Hyclate 1 tab by mouth 14caps L03.011 David Rivers, 03/18/2015 - 100mg twice a day x 7 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 04/01/2015 Capsules days Alprazolam 1 by mouth 90tabs F41.9 David Rivers, 03/18/2015 - 0.25mg Tablets three times a 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 08/27/2015 day a day as needed anxiety Sertraline HCL 1 by mouth 90tabs F41.9 David Petersonhn, 03/18/2015 - 50mg Tablets every day 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 04/25/2015 Albuterol Sulfate 1 vial every 4 1box J45.20 Stephie 01/18/2015 - (2.5mg/3ML) hour as needed Darin Valle 05/19/2017 0.083% Nebulizer ans every 2 hour if needed J45.41 Escitalopram Oxalate 1 by mouth 30tabs F41.9 Stephie Valle, 01/18/2015 - every day M.D. 03/18/2015 10mg Tablets Clotrimazole apply twice a 45gm 112.3 Stephie Valle, 01/18/2015 - 1% Cream day for 2-3 M.D. 04/01/2015 days as needed Nystop apply twice a 60units 112.3 Stephie Valle, 01/18/2015 - 376217Iqbr/GM day M.D. 04/01/2015 Powder Nebulizer for use 4 times QS J45.20 Stephie Valle, 01/18/2015 - Kit/Tubing/Mouthpiece daily as needed M.D. 05/19/2017 Kit R06.02 Dulera 2 puffs twice 1units R06.02 Blaze Davies 01/14/2015 - 200-5mcg/Act daily Darin Torres 05/19/2017 Aerosol J45.41 Methylprednisolone (Danilo) as directed 1pack 786.05 Ethan El, 01/11/2015 - 4mg 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 01/18/2015 Tablets Pulmicort Flexhaler 2 puffs twice 1units 786.05 Ethan El, 01/11/2015 - 180mcg/Act daily 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 01/14/2015 Aerosol Sumatriptan Succinate take 1 tablet by 8tabs 346.10 David Grant, 2014 - 50mg mouth may repeat 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 09/07/2016 Tablets in 2 hours if headache unrelieved No Active Medications Unknown 09/28/2014 - 09/28/2014 Methylprednisolone (Danilo) as directed 1pack 493.00 Stephie 09/28/2014 - 4mg Darin Valle 12/24/2014 Tablets Proair HFA 2 puffs by mouth 1units J45.20 Blaze Davies 09/28/2014 - 108(90Base) mcg/Act every 4 hours as Darin Torres 09/07/2016 Aerosol needed J45.41 No Active Medications Unknown 06/25/2014 - 06/25/2014 Fluconazole take 1 tab po. 2tabs 112.1 Pepperofia Mik, 06/25/2014 - 150mg may repeat in 3 AUTOMATION DRIVER 09/28/2014 Tablets days if still has symptoms. Clotrimazole 3 use 1 applicator QS 112.1 Sayra Houser, 06/25/2014 - 2% Cream twice daily for 5 AUTOMATION DRIVER 09/28/2014 days. Hydroxyzine Pamoate Take 1 tab po hs 30caps 300.00 Sayra Billk, 2014 - as needed AUTOMATION DRIVER 09/28/2014 25mg Capsules Citalopram 1 by mouth every 30tabs 311 Stephie Valle, 02/13/2014 - Hydrobromide justo M.DLynette 06/25/2014 10mg Tablets No Active Medications Unknown 02/13/2014 - 02/13/2014 Atrovent 2 sprays in each 1ml 465.9 Briana 07/26/2012 - 0.06% Solution nostril 4 times Sandro, N.P. 02/13/2014 daily Bactrim DS 1 tab po bid 28tabs V12.04 Gage Longoria 05/31/2012 - 800-160mg Darin Potts 07/26/2012 Tablets Rifampin 2 po qd 28caps V12.04 Gage Longoria 05/31/2012 - 300mg Capsules Darin Potts 07/26/2012 Topiramate 1 qhs for 1 week 120tabs Miguel Ángel Guerrero 05/18/2012 - 25mg Tablets then 2 qhs for 1 Darin Lunsford 02/13/2014 week then 3 qhs for 1 week then 4 qhs Doxycycline Hyclate 1 cap po bid with 36caps 682.8 Gage Longoria 04/27/2012 - food Darin Potts 07/26/2012 100mg Capsules Mupirocin apply to both 1tube 682.8 Gage Longoria 04/27/2012 - 2% Ointment nostrils bid for Katlyn RaminMan 07/26/2012 5 days Chlorhexidine wash from neck 2Bottles 682.8 Gage Longoria 04/27/2012 - Gluconate 4% down every other Katlyn RaminLynetteD. 07/26/2012 Solution day for 6 days Doxycycline Hyclate 1 po 2x per day 20tabs V12.04 Stephie Valle, 2011 - 10 days M.DLynette 05/18/2012 100mg Tablets Acetaminophen/Codeine 1 tab po every 4tabs V12.04 Stephie Valle, 2011 - #3 6hours as needed M.D. 07/26/2012 300-30mg Tablets for pain Doxycycline Hyclate 1 po 2x per day 28tabs James Longoria 02/02/2012 - 14 days Marian, 04/21/[address] Webster,FACP Bactrim DS 1 po bid 20tabs Uzma 01/28/2012 - 800-160mg Darin Rob 03/26/2012 Tablets Albuterol Sulfate 1 vial every 4 1box 466.0 Stephie Valle 12/28/2011 - hour as needed M.D. 02/02/2012 (2.5mg/3ML) 0.083% ans every 2 hour Nebulizer if needed Medrol Dosepak per directions 1tabs 466.0 Stephie Valle, 12/28/2011 - 4mg M.D. 01/04/2012 Tablets Amoxicillin/Clavulana 1 tab po 2x per 20tabs 466.0 Stephie Valle 2011 - te Potassium day M.D. 02/02/2012 875-125mg Tablets Proventil HFA 1 puff every 4 hr 1units 466.0 Stephie Valle 12/28/2011 - and every 2 hr if M.D. 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 05/19/2017 Ativan 1 tab po bid; F41.9 Unknown - 0.5mg Tablets Vasyl 05/19/2017 Zofran 1 tab by mouth R11.0 Unknown - 4mg Tablets every 6 hours as 09/07/2016 needed nausea F31.9 Lorazepam 1 by mouth twice Unknown - 1mg Tablets a day as needed 03/02/2016 Depakote 3 by mouth every F31.9 Unknown - 250mg Tablets morning; 09/07/2016 DR Fallon Ipratropium 1 dose via 180ml J45.41 Blaze Davies - [place]/Albuterol nebulizer up to 4 Darin Torres 05/19/2017 Sulfate times a day as needed for asthma 0.5-2.5(3)mg/3ML Solution Augmentin 1 tablet by mouth Unknown - 875-125mg q12 hours for 10 04/01/2015 Tablets days Atrovent HFA inhale 2 puffs 4 Unknown - 17mcg/Act times daily 08/27/2015 Aerosol Ibuprofen by mouth every 4 Unknown - 400mg Tablets to 6 hours as 08/27/2015 needed Imitrex 1 po q 6 hrs. prn 18tabs Unknown - 25mg Unsure migraines 05/18/2012 Dose Tablets Colace 1 po bid prn 60caps Unknown - 100mg Capsules 12/28/2011 Iron qd Unknown - 12/28/2011 Propranolol HCL 1 po bid 60tabs Unknown - 20mg 02/02/2012 Tablets Meningococcal Unknown B,Unspecified Injection Immunizations CPT Code Status Date Vaccine Reaction Lot # [id number] Given 05/19/2017 Tdap - no reaction, pt [id number] Tetanus/Diptheria/Acellular tolerated well Pertussis 93231 Given 04/25/2015 Influenza Virus Vaccine, [id number] Quadrivalent, Split, Preservative Free 20102 Given 06/12/2014 Measles Mumps And Rubella [id number] MMR 99210 Given 06/12/2014 Flu Vaccine Split Virus [id number] Preservative Free For Indiv 3Yr Older 81873 Given 04/05/2012 Influenza Virus 3Yrs & Over Vital Signs Date Vital Result Comment 10/18/2018 9:37am Height 62 inches 5'2" Weight 191.00 lb Heart Rate 91 /min BP Systolic Sitting 121 mmHg BP Diastolic Sitting 88 mmHg Body Temperature 97.0 F O2 % BldC Oximetry 98 % BMI (Body Mass Index) 34.9 kg/m2 09/12/2018 3:29pm Height 62 inches 5'2" Weight 187.00 lb Heart Rate 88 /min BP Systolic Sitting 130 mmHg BP Diastolic Sitting 88 mmHg Body Temperature 97.7 F O2 % BldC Oximetry 98 % BMI (Body Mass Index) 34.2 kg/m2 02/04/2018 9:18am Height 62 inches 5'2" Weight 181.00 lb Heart Rate 93 /min BP Systolic Sitting 118 mmHg BP Diastolic Sitting 80 mmHg Body Temperature 98.6 F O2 % BldC Oximetry 97 % BMI (Body Mass Index) 33.1 kg/m2 12/21/2017 4:02pm Height 62 inches 5'2" Weight 182.00 lb Heart Rate 69 /min BP Systolic Sitting 120 mmHg BP Diastolic Sitting 80 mmHg Body Temperature 96.5 F O2 % BldC Oximetry 97 % BMI (Body Mass Index) 33.3 kg/m2 12/10/2017 8:47am Height 62 inches 5'2" Weight 182.00 lb Heart Rate 89 /min BP Systolic Sitting 120 mmHg BP Diastolic Sitting 80 mmHg Body Temperature 98.5 F O2 % BldC Oximetry 98 % BMI (Body Mass Index) 33.3 kg/m2 11/26/2017 3:11pm Height 62 inches 5'2" Weight 187.06 lb Heart Rate 83 /min BP Systolic 122 mmHg BP Diastolic 80 mmHg O2 % BldC Oximetry 98 % BMI (Body Mass Index) 34.2 kg/m2 06/23/2017 10:55am Weight 184.00 lb Heart Rate 83 /min BP Systolic Sitting 122 mmHg BP Diastolic Sitting 83 mmHg Body Temperature 97.6 F O2 % BldC Oximetry 98 % 05/19/2017 8:03am Height 62 inches 5'2" Weight 184.00 lb Heart Rate 97 /min BP Systolic Sitting 130 mmHg BP Diastolic Sitting 76 mmHg Body Temperature 98.1 F O2 % BldC Oximetry 94 % BMI (Body Mass Index) 33.7 kg/m2 09/07/2016 12:01pm Height 62 inches 5'2" Weight 173.00 lb Heart Rate 76 /min BP Systolic Sitting 130 mmHg BP Diastolic Sitting 100 mmHg Body Temperature 98.3 F O2 % BldC Oximetry 99 % BMI (Body Mass Index) 31.6 kg/m2 03/09/2016 10:36am Height 62 inches 5'2" Weight 170.00 lb Heart Rate 65 /min BP Systolic 130 mmHg BP Diastolic 76 mmHg Respiratory Rate 14 /min O2 % BldC Oximetry 98 % BMI (Body Mass Index) 31.1 kg/m2 03/03/2016 8:11am Heart Rate 85 /min BP Systolic 138 mmHg BP Diastolic 82 mmHg Respiratory Rate 14 /min Body Temperature 98.4 F O2 % BldC Oximetry 98 % 03/02/2016 11:33am Weight 165.50 lb Heart Rate 75 /min BP Systolic Sitting 128 mmHg BP Diastolic Sitting 78 mmHg Body Temperature 97.8 F O2 % BldC Oximetry 98 % 02/28/2016 11:49am Height 62 inches 5'2" Weight 173.38 lb Heart Rate 74 /min BP Systolic 100 mmHg BP Diastolic 62 mmHg Body Temperature 97.5 F O2 % BldC Oximetry 98 % BMI (Body Mass Index) 31.7 kg/m2 08/30/2015 9:56am Height 62 inches 5'2" Weight 200.00 lb Heart Rate 91 /min BP Systolic 122 mmHg BP Diastolic 86 mmHg Respiratory Rate 14 /min O2 % BldC Oximetry 98 % BMI (Body Mass Index) 36.6 kg/m2 Neck Circumference in inches 15 08/27/2015 12:38pm Height 62 inches 5'2" Weight 199.00 lb Heart Rate 108 /min BP Systolic 120 mmHg BP Diastolic 84 mmHg Body Temperature 98.5 F O2 % BldC Oximetry 94 % BMI (Body Mass Index) 36.4 kg/m2 04/25/2015 3:39pm Height 62 inches 5'2" Weight 207.00 lb Heart Rate 94 /min BP Systolic 138 mmHg BP Diastolic 90 mmHg BMI (Body Mass Index) 37.9 kg/m2 04/01/2015 8:43am Height 62 inches 5'2" Weight 208.00 lb Heart Rate 71 /min BP Systolic 114 mmHg BP Diastolic 74 mmHg Body Temperature 97.7 F O2 % BldC Oximetry 98 % BMI (Body Mass Index) 38.0 kg/m2 03/18/2015 12:45pm Height 62 inches 5'2" Weight 202.00 lb Heart Rate 84 /min BP Systolic Sitting 142 mmHg BP Diastolic Sitting 86 mmHg Respiratory Rate 15 /min Body Temperature 98.0 F O2 % BldC Oximetry 98 % BMI (Body Mass Index) 36.9 kg/m2 01/18/2015 12:34pm Weight 202.25 lb Heart Rate 87 /min BP Systolic Sitting 122 mmHg BP Diastolic Sitting 78 mmHg Body Temperature 97.9 F O2 % BldC Oximetry 97 % 01/14/2015 1:01pm Height 62 inches 5'2" Weight 204.25 lb Heart Rate 61 /min BP Systolic Sitting 122 mmHg BP Diastolic Sitting 80 mmHg Respiratory Rate 20 /min Body Temperature 97.1 F O2 % BldC Oximetry 97 % BMI (Body Mass Index) 37.4 kg/m2 01/11/2015 9:37am Peak Flow Meter 425,375 01/11/2015 2:05pm Height 62 inches 5'2" Weight 211.00 lb Heart Rate 75 /min BP Systolic 118 mmHg BP Diastolic 75 mmHg Body Temperature 98.1 F O2 % BldC Oximetry 98 % BMI (Body Mass Index) 38.6 kg/m2 12/25/2014 10:57am Height 62 inches 5'2" Weight 207.38 lb Heart Rate 78 /min BP Systolic Sitting 112 mmHg BP Diastolic Sitting 70 mmHg Body Temperature 97.8 F O2 % BldC Oximetry 98 % BMI (Body Mass Index) 37.9 kg/m2 09/28/2014 1:49pm Weight 223.75 lb Heart Rate 95 /min BP Systolic Sitting 118 mmHg BP Diastolic Sitting 72 mmHg Respiratory Rate 18 /min Body Temperature 98.3 F Pain Level 1 O2 % BldC Oximetry 96 % 06/25/2014 2:37pm Weight 223.50 lb Heart Rate 94 /min BP Systolic Sitting 126 mmHg BP Diastolic Sitting 79 mmHg Body Temperature 99.0 F 02/13/2014 1:52pm Weight 236.00 lb Heart Rate 74 /min BP Systolic Sitting 124 mmHg BP Diastolic Sitting 80 mmHg 07/26/2012 12:30pm Height 62 inches 5'2" Weight 246.00 lb Heart Rate 98 /min BP Systolic Sitting 118 mmHg BP Diastolic Sitting 80 mmHg Body Temperature 97.1 F O2 % BldC Oximetry 98 % BMI (Body Mass Index) 45.0 kg/m2 05/31/2012 11:33am Height 62 inches 5'2" Weight 245.00 lb BP Systolic 110 mmHg BP Diastolic 76 mmHg Respiratory Rate 16 /min Body Temperature 97.8 F BMI (Body Mass Index) 44.8 kg/m2 05/18/2012 2:52pm Heart Rate 66 /min BP Systolic 120 mmHg BP Diastolic 80 mmHg Respiratory Rate 18 /min 04/27/2012 1:00pm Height 63 inches 5'3" Weight 245.00 lb Heart Rate 72 /min BP Systolic 128 mmHg BP Diastolic 92 mmHg Respiratory Rate 16 /min Body Temperature 97.8 F BMI (Body Mass Index) 43.4 kg/m2 04/21/2012 4:43pm Height 63 inches 5'3" Weight 245.00 lb Heart Rate 80 /min BP Systolic Sitting 116 mmHg BP Diastolic Sitting 64 mmHg Body Temperature 97.5 F BMI (Body Mass Index) 43.4 kg/m2 04/05/2012 4:36pm Height 63 inches 5'3" Weight 248.00 lb Heart Rate 83 /min BP Systolic Sitting 112 mmHg BP Diastolic Sitting 70 mmHg BMI (Body Mass Index) 43.9 kg/m2 02/02/2012 3:53pm Height 63 inches 5'3" Weight 243.00 lb Heart Rate 86 /min BP Systolic Sitting 110 mmHg BP Diastolic Sitting 70 mmHg Body Temperature 97.0 F BMI (Body Mass Index) 43.0 kg/m2 01/04/2012 2:19pm Height 63 inches 5'3" Weight 235.00 lb Heart Rate 92 /min BP Systolic Sitting 110 mmHg BP Diastolic Sitting 78 mmHg O2 % BldC Oximetry 98 % BMI (Body Mass Index) 41.6 kg/m2 12/28/2011 1:52pm Height 63 inches 5'3" Weight 235.00 lb Heart Rate 105 /min BP Systolic Sitting 108 mmHg BP Diastolic Sitting 76 mmHg Body Temperature 97.4 F O2 % BldC Oximetry 98 % BMI (Body Mass Index) 41.6 kg/m2 10/22/2011 2:46pm Height 63 inches 5'3" Weight 229.00 lb Heart Rate 80 /min BP Systolic Sitting 118 mmHg L BP Diastolic Sitting 78 mmHg L BMI (Body Mass Index) 40.6 kg/m2 Results Test Date Facility Test Result H/L Range Note Rapid Influenza 09/10/2018 [facility] Influenza A NEGATIVE Negative 1 A & B Molecular [address] [place] [address] [phone] Influenza B Molecular NEGATIVE Negative CBC Auto Diff 04/12/2018 [facility] White Blood 9.1 10^3/uL N 3.5-10.[address] [place] [address] [phone] Red Blood Count 4.50 10^6/uL N 4.00-5.40 Hemoglobin 13.0 g/dL N 12.0-16.0 Hematocrit 39 % N 35-47 Mean Corpuscular Volume 87 fL N 80-97 Mean Corpuscular Hemoglobin 29 pg N 27-31 Mean Corpuscular HGB Conc 33 g/dL N 31-36 Red Cell Distribution Width 13 % N 10.5-15 Platelet Count 349 10^3/uL N 150-450 Mean Platelet Volume 8.5 um3 N 7.4-10.4 Abs Neutrophils 5.6 10^3/uL N 1.5-7.7 Abs Lymphocytes 2.5 10^3/uL N 1.0-4.8 Abs Monocytes 0.6 10^3/uL N 0-0.8 Abs Eosinophils 0.3 10^3/uL N 0-0.6 Abs Basophils 0.1 10^3/uL N 0-0.2 Abs Nucleated RBC 0 10^3/uL Granulocyte % 61.7 % N 38-83 Lymphocyte % 27.5 % N 25-47 Monocyte % 7.1 % High 0-7 Eosinophil % 2.9 % N 0-6 Basophil % 0.8 % N 0-2 Nucleated Red Blood Cells % 0 Comp Metabolic Panel 04/12/2018 [facility] Sodium 140 mmol/L N 135-[address] [place] [address] [phone] Potassium 3.7 mmol/L N 3.5-5.0 Chloride 109 mmol/L N 101-111 Co2 Carbon Dioxide 25 mmol/L N 22-32 Anion Gap 6 mmol/L N 2-11 Glucose 112 mg/dL High 70-100 Blood Urea Nitrogen 7 mg/dL N 6-24 Creatinine 0.63 mg/dL N 0.51-0.95 BUN/Creatinine Ratio 11.1 N 8-20 Calcium 8.8 mg/dL N 8.6-10.3 Total Protein 6.3 g/dL Low 6.4-8.9 Albumin 4.0 g/dL N 3.2-5.2 Globulin 2.3 g/dL N 2-4 Albumin/Globulin Ratio 1.7 N 1-3 Total Bilirubin 0.30 mg/dL N 0.2-1.0 Alkaline Phosphatase 73 U/L N 34-104 Alt 11 U/L N 7-52 Ast 10 U/L Low 13-39 Egfr Non- 109.5 >60 Egfr 132.5 >60 2 Laboratory test 04/12/2018 [facility] HCG < 0.60 mIU/ mL [address] [place] [address] [phone] [place] < 0.10 mmol/L Low 0.6-1.2 Acetaminophen < 15 g/mL 4 Alcohol < 10 mg/dL N <10 Salicylate < 2.50 mg/dL <30 TSH (Thyroid Stim Horm) 0.57 mcIU/mL N 0.34-5.60 Urine Drug 04/12/2018 [facility] Amphetamine Ur None Detected None Detect SCR ED & [address] Screen [place] [address] [phone] Barbiturates Urine Screen None Detected None Detect Benzodiazepine Urine Screen None Detected None Detect Urine Cannabinoids Screen Presumptive Posi <SEE NOTE> Abnormal None Detect 5 Urine Cocaine Screen None Detected None Detect Urine Opiates Screen None Detected None Detect Urine Phencyclidine Screen None Detected None Detect 6 Urinalysis Profile 04/12/2018 [facility] Urine Color Yellow [address] [place] [address] [phone] Urine Appearance Cloudy Urine Specific [place] 1.023 N 1.010-1.030 Urine pH 5.0 N 5-9 Urine Urobilinogen Negative Negative Urine Ketones Negative Negative Urine Protein Negative Negative Urine Leukocytes 1+ Abnormal Negative Urine Blood 2+ Abnormal Negative Urine Nitrite Positive Abnormal Negative Urine Bilirubin Negative Negative Urine Glucose Negative Negative Urine White Blood Cell 2+(11-20/hpf) Abnormal Absent Urine Red Blood Cell 2+(6-10/hpf) Abnormal Absent Urine Bacteria 1+ Abnormal Absent Urine Squamous Epithelial Cell Present Abnormal Absent Urine Culture And 04/12/2018 [facility] Urine Culture SEE RESULT [address] [place] [address] [phone] Urine Culture And 02/04/2018 [facility] Urine Culture SEE RESULT 8, [address] [place] [address] [phone] Ua Routine 02/04/2018 [employer] In House Ua Specific 1.010 [place] Ua PH 6 Ua Color dark yellow Ua Appera cloudy Ua WBC trace Ua Protein neg Ua Glucose normal Ua Ketones neg Ua Bilirubin neg Ua Urobilinogen normal Ua Nitrite POSITIVE Ua Occult Blood trace Laboratory test 12/20/2017 [facility] [place] 0.51 mmol/L Low 0.6-1.[address] [place] [address] [phone] TSH (Thyroid Stim Horm) 1.03 mcIU/mL N 0.34-5.60 Basic Metabolic Panel 12/20/2017 [facility] Sodium 140 mmol/L N 135-[address] [place] [address] [phone] Potassium 4.2 mmol/L N 3.5-5.0 Chloride 106 mmol/L N 101-111 Co2 Carbon Dioxide 27 mmol/L N 22-32 Anion Gap 7 mmol/L N 2-11 Glucose 83 mg/dL N 70-100 Blood Urea Nitrogen 11 mg/dL N 6-24 Creatinine 0.69 mg/dL N 0.51-0.95 BUN/Creatinine Ratio 15.9 N 8-20 Calcium 9.3 mg/dL N 8.6-10.3 Egfr Non- 99.2 >60 Egfr 120.1 >60 10 CBC Auto [facility] [facility] White Blood 13.0 10^3/uL High 3.5-10.[address] [place] [address] [phone] Red Blood Count 4.81 10^6/uL N 4.00-5.40 Hemoglobin 14.1 g/dL N 12.0-16.0 Hematocrit 42 % N 35-47 Mean Corpuscular Volume 87 fL N 80-97 Mean Corpuscular Hemoglobin 29 pg N 27-31 Mean Corpuscular HGB Conc 34 g/dL N 31-36 Red Cell Distribution Width 14 % N 10.5-15 Platelet Count 333 10^3/uL N 150-450 Mean Platelet Volume 8.2 um3 N 7.4-10.4 Abs Neutrophils 9.7 10^3/uL High 1.5-7.7 Abs Lymphocytes 2.1 10^3/uL N 1.0-4.8 Abs Monocytes 0.9 10^3/uL High 0-0.8 Abs Eosinophils 0.2 10^3/uL N 0-0.6 Abs Basophils 0.1 10^3/uL N 0-0.2 Abs Nucleated RBC 0 10^3/uL Granulocyte % 74.5 % N 38-83 Lymphocyte % 16.2 % Low 25-47 Monocyte % 7.0 % N 0-7 Eosinophil % 1.9 % N 0-6 Basophil % 0.4 % N 0-2 Nucleated Red Blood Cells % 0.1 Inr/Protime 11/23/2017 [facility] Inr 1.02 N 0.77-1.[address] [place] [address] [phone] Laboratory test 11/23/2017 [facility] Partial 33.0 seconds N 26.0-36.[address] [place] [address] PTT [phone] Lactic Acid 0.7 mmol/L N 0.5-2.0 11 Comp Metabolic Panel 11/23/2017 [facility] Sodium 138 mmol/L Low 139-[address] [place] [address] [phone] Potassium 3.9 mmol/L N 3.5-5.0 Chloride 104 mmol/L N 101-111 Co2 Carbon Dioxide 25 mmol/L N 22-32 Anion Gap 9 mmol/L N 2-11 Glucose 104 mg/dL High 70-100 Blood Urea Nitrogen 5 mg/dL Low 6-24 Creatinine 0.62 mg/dL N 0.51-0.95 BUN/Creatinine Ratio 8.1 N 8-20 Calcium 9.6 mg/dL N 8.6-10.3 Total Protein 7.2 g/dL N 6.4-8.9 Albumin 4.2 g/dL N 3.2-5.2 Globulin 3.0 g/dL N 2-4 Albumin/Globulin Ratio 1.4 N 1-3 Total Bilirubin 0.70 mg/dL N 0.2-1.0 Alkaline Phosphatase 106 U/L High 34-104 Alt 130 U/L High 7-52 Ast 28 U/L N 13-39 Egfr Non- 112.3 >60 Egfr 144.4 >60 12 Laboratory test 11/23/2017 [facility] C Reactive 37.53 mg/L High < 5.00 [address] [place] [place] [address] [phone] Blood Culture SEE RESULT BELOW 14 Laboratory test 11/19/2017 [facility] Surgical SEE RESULT [address] [place] [address] [phone] Laboratory test 07/22/2017 [facility] C Reactive < 1.00 mg/L N < 5.00 [address] [place] [place] [address] [phone] Comp Metabolic 07/22/2017 [facility] Sodium 138 mmol/L N 133- [address] [place] [address] [phone] Potassium 3.2 mmol/L Low 3.5-5.0 Chloride 107 mmol/L N 101-111 Co2 Carbon Dioxide 23 mmol/L N 22-32 Anion Gap 8 mmol/L N 2-11 Glucose 102 mg/dL High 70-100 Blood Urea Nitrogen 11 mg/dL N 6-24 Creatinine 0.61 mg/dL N 0.51-0.95 BUN/Creatinine Ratio 18.0 N 8-20 Calcium 9.3 mg/dL N 8.6-10.3 Total Protein 6.7 g/dL N 6.4-8.9 Albumin 4.2 g/dL N 3.2-5.2 Globulin 2.5 g/dL N 2-4 Albumin/Globulin Ratio 1.7 N 1-3 Total Bilirubin 0.30 mg/dL N 0.2-1.0 Alkaline Phosphatase 66 U/L N 34-104 Alt 11 U/L N 7-52 Ast 12 U/L Low 13-39 Egfr Non- 114.4 >60 Egfr 147.1 >60 17 CBC Auto 07/22/2017 [facility] White Blood 11.4 10^3/uL High 3.5-10.[address] [place] [place] [address] [phone] Red Blood Count 4.45 10^6/uL N 4.0-5.4 Hemoglobin 13.2 g/dL N 12.0-16.0 Hematocrit 39 % N 35-47 Mean Corpuscular Volume 87 fL N 80-97 Mean Corpuscular Hemoglobin 30 pg N 27-31 Mean Corpuscular HGB Conc 34 g/dL N 31-36 Red Cell Distribution Width 14 % N 10.5-15 Platelet Count 290 10^3/uL N 150-450 Mean Platelet Volume 9 um3 N 7.4-10.4 Abs Neutrophils 6.1 10^3/uL N 1.5-7.7 Abs Lymphocytes 3.7 10^3/uL N 1.0-4.8 Abs Monocytes 1.0 10^3/uL High 0-0.8 Abs Eosinophils 0.5 10^3/uL N 0-0.6 Abs Basophils 0.1 10^3/uL N 0-0.2 Abs Nucleated RBC 0 10^3/uL Granulocyte % 53.8 % N 38-83 Lymphocyte % 32.4 % N 25-47 Monocyte % 8.8 % N 1-9 Eosinophil % 4.4 % N 0-6 Basophil % 0.6 % N 0-2 Nucleated Red Blood Cells % 0.1 Urine Culture And 06/23/2017 [facility] Urine Culture SEE RESULT [address] [place] [address] [phone] Ua Routine 06/23/2017 [facility] Ua Specific 1.020 [address] [place] Ua PH 6 Ua Color dark yellow Ua Appera cloudy Ua WBC + Ua Protein trace Ua Glucose normal Ua Ketones negative Ua Bilirubin negative Ua Urobilinogen normal Ua Nitrite POSITIVE!!!! Ua Occult Blood trace Comp Metabolic Panel 10/11/2016 [facility] Sodium 138 mmol/L N 133-[address] [place] [address] [phone] Potassium 3.7 mmol/L N 3.5-5.0 Chloride 108 mmol/L N 101-111 Co2 Carbon Dioxide 26 mmol/L N 22-32 Anion Gap 4 mmol/L N 2-11 Glucose 102 mg/dL High 70-100 Blood Urea Nitrogen 11 mg/dL N 6-24 Creatinine 0.62 mg/dL N 0.51-0.95 BUN/Creatinine Ratio 17.7 N 8-20 Calcium 8.5 mg/dL Low 8.6-10.3 Total Protein 6.3 g/dL Low 6.4-8.9 Albumin 3.9 g/dL N 3.2-5.2 Globulin 2.4 g/dL N 2-4 Albumin/Globulin Ratio 1.6 N 1-3 Total Bilirubin 0.20 mg/dL N 0.2-1.0 Alkaline Phosphatase 69 U/L N 34-104 Alt 6 U/L Low 7-52 Ast 9 U/L Low 13-39 Egfr Non- 113.0 N >60 Egfr 145.4 N >60 20 CBC Auto Diff 10/11/2016 [facility] White Blood 7.7 10^3/uL N 3.5-10.[address] [place] [address] [phone] Red Blood Count 4.25 10^6/uL N 4.0-5.4 Hemoglobin 12.2 g/dL N 12.0-16.0 Hematocrit 37 % N 35-47 Mean Corpuscular Volume 88 fL N 80-97 Mean Corpuscular Hemoglobin 29 pg N 27-31 Mean Corpuscular HGB Conc 33 g/dL N 31-36 Red Cell Distribution Width 14 % N 10.5-15 Platelet Count 269 10^3/uL N 150-450 Mean Platelet Volume 9 um3 N 7.4-10.4 Abs Neutrophils 3.6 10^3/uL N 1.5-7.7 Abs Lymphocytes 2.8 10^3/uL N 1.0-4.8 Abs Monocytes 0.9 10^3/uL High 0-0.8 Abs Eosinophils 0.3 10^3/uL N 0-0.6 Abs Basophils 0.1 10^3/uL N 0-0.2 Abs Nucleated RBC 0.01 10^3/uL N Granulocyte % 47.1 % N 38-83 Lymphocyte % 36.5 % N 25-47 Monocyte % 11.4 % High 1-9 Eosinophil % 4.0 % N 0-6 Basophil % 1.0 % N 0-2 Nucleated Red Blood Cells % 0.1 N Urinalysis Profile 07/30/2016 [facility] Urine Color [place] N [address] [place] [address] [phone] Urine Appearance Cloudy N Urine Specific [place] 1.028 N 1.010-1.030 Urine pH 5.0 N 5-9 Urine Urobilinogen Negative N Negative Urine Ketones Trace Abnormal Negative Urine Protein 1+(30 mg/dL) Abnormal Negative Urine Leukocytes Trace Abnormal Negative Urine Blood Negative N Negative * * Abnormal Negative 21 Urine Nitrite Positive Abnormal Negative Urine Bilirubin 1+ Abnormal Negative Urine Glucose Negative N Negative Urine White Blood Cell 1+(6-10/hpf) Abnormal Absent Urine Red Blood Cell Absent N Absent Urine Bacteria 1+ Abnormal Absent Urine Squamous Epithelial Cell Present Abnormal Absent Urine Calcium Oxalate Cryst Present Abnormal Absent Urine Culture And 07/30/2016 [facility] Urine SEE RESULT [address] [place] [address] [phone] CBC Auto Diff 04/05/2016 [facility] White Blood 18.5 High 3.5- [address] Count 10^3/uL 0.8 [place] [address] [phone] Red Blood Count 4.15 10^6/uL N 4.0-5.4 Hemoglobin 11.9 g/dL Low 12.0-16.0 Hematocrit 36 % N 35-47 Mean Corpuscular Volume 88 fL N 80-97 Mean Corpuscular Hemoglobin 29 pg N 27-31 Mean Corpuscular HGB Conc 33 g/dL N 31-36 Red Cell Distribution Width 14 % N 10.5-15 Platelet Count 343 10^3/uL N 150-450 Mean Platelet Volume 9 um3 N 7.4-10.4 Abs Neutrophils 15.0 10^3/uL High 1.5-7.7 Abs Lymphocytes 2.3 10^3/uL N 1.0-4.8 Abs Monocytes 0.8 10^3/uL N 0-0.8 Abs Eosinophils 0.2 10^3/uL N 0-0.6 Abs Basophils 0.1 10^3/uL N 0-0.2 Abs Nucleated RBC 0 10^3/uL N Granulocyte % 81.1 % N 38-83 Lymphocyte % 12.6 % Low 25-47 Monocyte % 4.4 % N 1-9 Eosinophil % 1.3 % N 0-6 Basophil % 0.6 % N 0-2 Nucleated Red Blood Cells % 0 N CBC Auto 04/05/2016 [facility] White Blood 27.6 10^3/uL High 3.5-10.[address] [place] [address] [phone] Red Blood Count 4.78 10^6/uL N 4.0-5.4 Hemoglobin 13.6 g/dL N 12.0-16.0 Hematocrit 42 % N 35-47 Mean Corpuscular Volume 88 fL N 80-97 Mean Corpuscular Hemoglobin 28 pg N 27-31 Mean Corpuscular HGB Conc 32 g/dL N 31-36 Red Cell Distribution Width 14 % N 10.5-15 Platelet Count 400 10^3/uL N 150-450 Mean Platelet Volume 9 um3 N 7.4-10.4 Abs Neutrophils 24.9 10^3/uL High 1.5-7.7 23 Abs Lymphocytes 1.0 10^3/uL N 1.0-4.8 Abs Monocytes 1.4 10^3/uL High 0-0.8 Abs Eosinophils 0.2 10^3/uL N 0-0.6 Abs Basophils 0.1 10^3/uL N 0-0.2 Abs Nucleated RBC 0.01 10^3/uL N Granulocyte % 90.4 % High 38-83 Lymphocyte % 3.6 % Low 25-47 Monocyte % 5.0 % N 1-9 Eosinophil % 0.7 % N 0-6 Basophil % 0.3 % N 0-2 Nucleated Red Blood Cells % 0 N Urinalysis Profile 04/05/2016 [facility] Urine Color Yellow N [address] [place] [address] [phone] Urine Appearance Cloudy N Urine Specific [place] 1.023 N 1.010-1.030 Urine pH 5.0 N 5-9 Urine Urobilinogen Negative N Negative Urine Ketones Negative N Negative Urine Protein Negative N Negative Urine Leukocytes Trace Abnormal Negative Urine Blood 2+ Abnormal Negative * * Abnormal Negative 24 Urine Nitrite Negative N Negative Urine Bilirubin Negative N Negative Urine Glucose Negative N Negative Urine White Blood Cell Trace(0-5/hpf) N Absent Urine Red Blood Cell 2+(6-10/hpf) Abnormal Absent Urine Bacteria Absent N Absent Urine Squamous Epithelial Cell Present Abnormal Absent Comp Metabolic Panel 04/05/2016 [facility] Sodium 137 mmol/L N 133-145 [address] [place] [address] [phone] Potassium 3.9 mmol/L N 3.5-5.0 Chloride 107 mmol/L N 101-111 Co2 Carbon Dioxide 23 mmol/L N 22-32 Anion Gap 7 mmol/L N 2-11 Glucose 94 mg/dL N 70-100 Blood Urea Nitrogen 7 mg/dL N 6-24 Creatinine 0.57 mg/dL N 0.51-0.95 BUN/Creatinine Ratio 12.3 N 8-20 Calcium 9.0 mg/dL N 8.6-10.3 Total Protein 7.2 g/dL N 6.4-8.9 Albumin 4.4 g/dL N 3.2-5.2 Globulin 2.8 g/dL N 2-4 Albumin/Globulin Ratio 1.6 N 1-3 Total Bilirubin 0.40 mg/dL N 0.2-1.0 Alkaline Phosphatase 66 U/L N 34-104 Alt 12 U/L N 7-52 Ast 12 U/L Low 13-39 Egfr Non- 124.5 N >60 Egfr 160.2 N >60 25 Laboratory test finding 04/05/2016 [facility] Lipase 6 U/L Low 11.0-82.[address] [place] [address] [phone] C Reactive Protein < 1.00 mg/L N < 5.00 26 HCG < 0.60 mIU/mL N 27 Urine Culture And 04/05/2016 [facility] Urine Culture SEE RESULT [address] [place] [address] [phone] Comp Metabolic 03/16/2016 [facility] Sodium 138 mmol/L N 133- [address] [place] [address] [phone] Potassium 3.6 mmol/L N 3.5-5.0 Chloride 108 mmol/L N 101-111 Co2 Carbon Dioxide 24 mmol/L N 22-32 Anion Gap 6 mmol/L N 2-11 Glucose 99 mg/dL N 70-100 Blood Urea Nitrogen 5 mg/dL Low 6-24 Creatinine 0.53 mg/dL N 0.51-0.95 BUN/Creatinine Ratio 9.4 N 8-20 Calcium 9.1 mg/dL N 8.6-10.3 Total Protein 6.5 g/dL N 6.4-8.9 Albumin 4.1 g/dL N 3.2-5.2 Globulin 2.4 g/dL N 2-4 Albumin/Globulin Ratio 1.7 N 1-3 Total Bilirubin 0.40 mg/dL N 0.2-1.0 Alkaline Phosphatase 76 U/L N 34-104 Alt 9 U/L N 7-52 Ast 11 U/L Low 13-39 Egfr Non- 135.4 N >60 Egfr 174.2 N >60 29 CBC Auto 03/16/2016 [facility] White Blood 15.8 10^3/uL High 3.5-10.[address] [place] [address] [phone] Red Blood Count 4.42 10^6/uL N 4.0-5.4 Hemoglobin 12.4 g/dL N 12.0-16.0 Hematocrit 38 % N 35-47 Mean Corpuscular Volume 86 fL N 80-97 Mean Corpuscular Hemoglobin 28 pg N 27-31 Mean Corpuscular HGB Conc 33 g/dL N 31-36 Red Cell Distribution Width 14 % N 10.5-15 Platelet Count 327 10^3/uL N 150-450 Mean Platelet Volume 9 um3 N 7.4-10.4 Abs Neutrophils 12.9 10^3/uL High 1.5-7.7 Abs Lymphocytes 1.9 10^3/uL N 1.0-4.8 Abs Monocytes 0.8 10^3/uL N 0-0.8 Abs Eosinophils 0 10^3/uL N 0-0.6 Abs Basophils 0.1 10^3/uL N 0-0.2 Abs Nucleated RBC 0.01 10^3/uL N Granulocyte % 82.1 % N 38-83 Lymphocyte % 12.1 % Low 25-47 Monocyte % 5.0 % N 1-9 Eosinophil % 0.3 % N 0-6 Basophil % 0.5 % N 0-2 Nucleated Red Blood Cells % 0 N Urinalysis Profile 03/16/2016 [facility] Urine Color Yellow N [address] [place] [address] [phone] Urine Appearance Clear N Urine Specific [place] 1.010 N 1.010-1.030 Urine pH 8.0 N 5-9 Urine Urobilinogen Negative N Negative Urine Ketones Negative N Negative Urine Protein Negative N Negative Urine Leukocytes Negative N Negative Urine Blood Negative N Negative Urine Nitrite Negative N Negative Urine Bilirubin Negative N Negative Urine Glucose Negative N Negative Laboratory test 03/02/2016 [facility] Lactic Acid 1.5 mmol/L N 0.5-2.0 [address] [place] [address] [phone] Urinalysis 03/01/2016 [facility] Urine Color Yellow N Profile [address] [place] [address] [phone] Urine Appearance Cloudy N Urine Specific [place] 1.024 N 1.010-1.030 Urine pH 8.0 N 5-9 Urine Urobilinogen Positive Abnormal Negative Urine Ketones 2+ Abnormal Negative Urine Protein 1+(30 mg/dL) Abnormal Negative Urine Leukocytes Trace Abnormal Negative Urine Blood Negative N Negative Urine Nitrite Positive Abnormal Negative Urine Bilirubin Negative N Negative Urine Glucose Negative N Negative Urine White Blood Cell Trace(0-5/hpf) N Absent Urine Red Blood Cell Trace(0-2/hpf) N Absent Urine Bacteria 2+ Abnormal Absent Urine Squamous Epithelial Cell Present Abnormal Absent Urine Culture And 03/01/2016 [facility] Urine SEE RESULT [address] [place] [address] [phone] CBC Auto Diff 03/01/2016 [facility] White Blood 11.7 High 3.5- [address] Count 10^3/uL 0.8 [place] [address] [phone] Red Blood Count 5.09 10^6/uL N 4.0-5.4 Hemoglobin 14.5 g/dL N 12.0-16.0 Hematocrit 43 % N 35-47 Mean Corpuscular Volume 85 fL N 80-97 Mean Corpuscular Hemoglobin 28 pg N 27-31 Mean Corpuscular HGB Conc 33 g/dL N 31-36 Red Cell Distribution Width 13 % N 10.5-15 Platelet Count 344 10^3/uL N 150-450 Mean Platelet Volume 9 um3 N 7.4-10.4 Abs Neutrophils 6.7 10^3/uL N 1.5-7.7 Abs Lymphocytes 3.1 10^3/uL N 1.0-4.8 Abs Monocytes 1.0 10^3/uL High 0-0.8 Abs Eosinophils 0.8 10^3/uL High 0-0.6 Abs Basophils 0.1 10^3/uL N 0-0.2 Abs Nucleated RBC 0 10^3/uL N Granulocyte % 57.3 % N 38-83 Lymphocyte % 26.2 % N 25-47 Monocyte % 8.9 % N 1-9 Eosinophil % 6.8 % High 0-6 Basophil % 0.8 % N 0-2 Nucleated Red Blood Cells % 0 N Comp Metabolic Panel 03/01/2016 [facility] Sodium 138 mmol/L N 133-[address] [place] [address] [phone] Potassium 3.6 mmol/L N 3.5-5.0 Chloride 106 mmol/L N 101-111 Co2 Carbon Dioxide 21 mmol/L Low 22-32 Anion Gap 11 mmol/L N 2-11 Calcium 9.8 mg/dL N 8.6-10.3 Albumin 4.6 g/dL N 3.2-5.2 Alkaline Phosphatase 93 U/L N 34-104 Alt 11 U/L N 7-52 Ast 10 U/L Low 13-39 Glucose 94 mg/dL N 70-100 Blood Urea Nitrogen 6 mg/dL N 6-24 Creatinine 0.77 mg/dL N 0.51-0.95 BUN/Creatinine Ratio 7.8 Low 8-20 Total Protein 8.2 g/dL N 6.4-8.9 Globulin 3.6 g/dL N 2-4 Albumin/Globulin Ratio 1.3 N 1-3 Total Bilirubin 0.70 mg/dL N 0.2-1.0 Egfr Non- 88.0 N >60 Egfr 113.2 N >60 32 Laboratory test 03/01/2016 [facility] C Reactive 6.98 mg/L High < 5.00 [address] [place] [address] [phone] D Dimer Quantitative < 200 ng/mL N Less Than 230 34 CBC Auto 2016 [facility] White Blood 15.6 10^3/uL High 3.5-10.[address] [place] [address] [phone] Red Blood Count 4.60 10^6/uL N 4.0-5.4 Hemoglobin 13.2 g/dL N 12.0-16.0 Hematocrit 40 % N 35-47 Mean Corpuscular Volume 86 fL N 80-97 Mean Corpuscular Hemoglobin 29 pg N 27-31 Mean Corpuscular HGB Conc 33 g/dL N 31-36 Red Cell Distribution Width 13 % N 10.5-15 Platelet Count 269 10^3/uL N 150-450 Mean Platelet Volume 10 um3 N 7.4-10.4 Abs Neutrophils 12.3 10^3/uL High 1.5-7.7 Abs Lymphocytes 1.7 10^3/uL N 1.0-4.8 Abs Monocytes 1.0 10^3/uL High 0-0.8 Abs Eosinophils 0.5 10^3/uL N 0-0.6 Abs Basophils 0.1 10^3/uL N 0-0.2 Abs Nucleated RBC 0.01 10^3/uL N Granulocyte % 78.8 % N 38-83 Lymphocyte % 10.9 % Low 25-47 Monocyte % 6.6 % N 1-9 Eosinophil % 3.3 % N 0-6 Basophil % 0.4 % N 0-2 Nucleated Red Blood Cells % 0 N Comp Metabolic Panel 2016 [facility] Sodium 138 mmol/L N 133-[address] [place] [address] [phone] Potassium 3.7 mmol/L N 3.5-5.0 Chloride 108 mmol/L N 101-111 Co2 Carbon Dioxide 21 mmol/L Low 22-32 Anion Gap 9 mmol/L N 2-11 Glucose 114 mg/dL High 70-100 Blood Urea Nitrogen 7 mg/dL N 6-24 Creatinine 0.62 mg/dL N 0.51-0.95 BUN/Creatinine Ratio 11.3 N 8-20 Calcium 9.1 mg/dL N 8.6-10.3 Total Protein 6.9 g/dL N 6.4-8.9 Albumin 4.1 g/dL N 3.2-5.2 Globulin 2.8 g/dL N 2-4 Albumin/Globulin Ratio 1.5 N 1-3 Total Bilirubin 0.50 mg/dL N 0.2-1.0 Alkaline Phosphatase 68 U/L N 34-104 Alt 7 U/L N 7-52 Ast 9 U/L Low 13-39 Egfr Non- 113.8 N >60 Egfr 146.4 N >60 35 Laboratory test 2016 [facility] TSH (Thyroid 0.78 mcIU/mL N 0.34-5.[address] Stim Horm) [place] [address] [phone] Urinalysis 07/14/2015 [facility] Urine Color Yellow N Profile [address] [place] [address] [phone] Urine Appearance Cloudy N Urine Specific [place] 1.016 N 1.010-1.030 Urine pH 7.0 N 5-9 Urine Urobilinogen Negative N Negative Urine Ketones Trace Abnormal Negative Urine Protein Negative N Negative Urine Leukocytes Trace Abnormal Negative Urine Blood Negative N Negative Urine Nitrite Positive Abnormal Negative Urine Bilirubin Negative N Negative Urine Glucose Negative N Negative Urine White Blood Cell 2+(11-20/hpf) Abnormal Absent Urine Red Blood Cell Trace(0-2/hpf) N Absent Urine Bacteria Absent N Absent Urine Squamous Epithelial Cell Present Abnormal Absent CBC Auto Diff 07/14/2015 [facility] White Blood 8.3 10^3/uL N 3.5-10.[address] [place] [address] [phone] Red Blood Count 4.87 10^6/uL N 4.0-5.4 Hemoglobin 14.0 g/dL N 12.0-16.0 Hematocrit 43 % N 35-47 Mean Corpuscular Volume 89 fL N 80-97 Mean Corpuscular Hemoglobin 29 pg N 27-31 Mean Corpuscular HGB Conc 33 g/dL N 31-36 Red Cell Distribution Width 14 % N 10.5-15 Platelet Count 334 10^3/uL N 150-450 Mean Platelet Volume 9 um3 N 7.4-10.4 Abs Neutrophils 4.7 10^3/uL N 1.5-7.7 Abs Lymphocytes 2.2 10^3/uL N 1.0-4.8 Abs Monocytes 0.7 10^3/uL N 0-0.8 Abs Eosinophils 0.6 10^3/uL N 0-0.6 Abs Basophils 0.1 10^3/uL N 0-0.2 Abs Nucleated RBC 0 10^3/uL N Granulocyte % 57.4 % N 38-83 Lymphocyte % 26.0 % N 25-47 Monocyte % 8.8 % N 1-9 Eosinophil % 7.2 % High 0-6 Basophil % 0.6 % N 0-2 Nucleated Red Blood Cells % 0 N Comp Metabolic Panel 07/14/2015 [facility] Sodium 136 mmol/L N 133-[address] [place] [address] [phone] Potassium 3.8 mmol/L N 3.5-5.0 Chloride 104 mmol/L N 101-111 Co2 Carbon Dioxide 26 mmol/L N 22-32 Anion Gap 6 mmol/L N 2-11 Glucose 84 mg/dL N 70-100 Blood Urea Nitrogen 8 mg/dL N 6-24 Creatinine 0.63 mg/dL N 0.51-0.95 BUN/Creatinine Ratio 12.7 N 8-20 Calcium 9.3 mg/dL N 8.6-10.3 Total Protein 7.4 g/dL N 6.4-8.9 Albumin 4.6 g/dL N 3.2-5.2 Globulin 2.8 g/dL N 2-4 Albumin/Globulin Ratio 1.6 N 1-3 Total Bilirubin 0.60 mg/dL N 0.2-1.0 Alkaline Phosphatase 65 U/L N 34-104 Alt 13 U/L N 7-52 Ast 14 U/L N 13-39 Egfr Non- 111.7 N >60 Egfr 143.7 N >60 36 Laboratory test 07/14/2015 [facility] Lipase 10 U/L Low 11.0- 82.[address] [place] [address] [phone] C Reactive Protein 1.13 mg/L N < 5.00 37 Lactic Acid 0.8 mmol/L N 0.5-2.0 38 HCG < 0.60 mIU/mL N 39 Urine Culture And Sensitivities SEE RESULT BELOW 40 Order 01/11/2015 [facility] Peak Flow Before [phone] [place] [address] Nebulizer [phone] Treatment Laboratory test 06/25/2014 [facility] Cytology RUN DATE: [address] 06/26/ [place] [address] <SEE NOTE> [phone] Human Papilloma Virus Rna Negative N Negative 42 Laboratory test 06/25/2014 [facility] Test neg finding Urine Laboratory test 10/16/2013 [facility] Throat Beta Strep (SEE NOTE) [address] [place] [address] [phone] Rapid Strep A 10/16/2013 [facility] Rapid Strep A (SEE NOTE) [address] [place] [address] [phone] Wound 05/28/2012 [facility] Wound/Misc (SEE NOTE) 45 Culture/Sensi [address] [place] [address] Stain [phone] Wound 05/28/2012 [facility] Wound/Misc (SEE NOTE) 46 Culture/Sensi [address] [place] [address] Stain [phone] Laboratory test 04/21/2012 [facility] MRSA Culture (SEE NOTE) [address] [place] [address] [phone] MRSA Screen 04/21/2012 [facility] MRSA Culture (SEE NOTE) [address] Screen [place], [place] [address] [phone] (HCG) 01/29/2012 [facility] Specific [place] 1.017 1.010-1. Urine [address] [place], [place] [id number] [phone] Urine NEGATIVE Negative 49 Laboratory test 01/04/2012 [facility] Thyroxine Free 0.85 ng/dL 0.61-1.[address] [place] [address] [phone] TSH 1.05 MIU/ML 0.34-5.60 Culture And 12/05/2011 [facility] M <SEE [address] NOTE> [place] [address] [phone] 1 Toby Maker: [id number] 2 Because ethnic data is not always [...] 5 Kidney failure <15 (or dialysis) 3 <5.0 Negative 5.0 - 25.0 Indeterminate (Repeat testing recommended after 72 hours) >25.0 Positive Perimenopausal women can display HCG levels of up to 20 mIU/mL 4 Therapeutic concentration: <50 ug/mL Toxic concentration: >120 ug/mL 5 Presumptive Positive Presumptive positive results are unconfirmed. 6 The urine specimen was tested at the listed cutoffs: Drug class test level (ng/mL) Amphetamines 500 Barbiturates 200 Benzodiazepine metabolites 200 Cocaine metabolites 150 Cannabinoids 50 Opiates 300 Pcp 25 Specimen was received without chain of custody. Results should be used for medical purposes only. 7 SEE RESULT BELOW Name: ИРИНА MICHELE : [address]: Agnes Michel MD Acct: [id number] Unit: [id number] AGE: 33 Location: ED Re04/12/18 SEX: F Status: DEP ER SPEC: [id number] JOSUE: 04/13/[address]: Jesse Caro MD REQ: [id number] RECD: 04/13/18 STATUS: CHRISSY MORATAYA DR: James Fonseca MD _ SOURCE: URINE SPDESC: ORDERED: Urine Culture Procedure Result Reported Site Urine Culture Final 04/15/18- 25 ML Organism 1 ESCHERICHIA COLI [place] Count >100,000 (Many) CFU/ML 1. ESCHERICHIA COLI M.I.C. RX --------- ------ Ampicillin >=32 R Cefazolin <=4 S Cefepime <=1 S Ceftriaxone <=1 S Ciprofloxacin >=4 R Gentamicin >=16 R Levofloxacin >=8 R Meropenem <=0.25 S Nitrofurantoin <=16 S Tetracycline <=1 S Pipercillin/Tazobactam <=4 S Trimethoprim/Sulfamethoxazole >=320 R Amoxicillin/Clavulanic Acid 8 S Aztreonam <=1 S Contact the Microbiology Department for any additional antibiotic reporting. * [facility] - Main Lab . END OF REPORT DEPARTMENT OF PATHOLOGY, [address] [place] [address] Rj Andrews M.D. Director [facility] # [id number] SEE RESULT BELOW Name: ИРИНА MICHELE : [address]: Eber Fonseca MD Acct: [id number] Unit: [id number] AGE: 32 Location: [facility] Re02/04/18 SEX: F Status: REG REF SPEC: [id number] JOSUE: 02/04/18-[address]: James Fonseca MD REQ: [id number] RECD: 02/04/181204 STATUS: COMP _ SOURCE: URINE SPDESC: ORDERED: Urine Culture COMMENTS: [id number] Urine Source: Random Procedure Result Reported Site Urine Culture Final 02/06/18- 0806 ML Organism 1 ESCHERICHIA COLI [place] Count >100,000 (Many) CFU/ML 1. ESCHERICHIA COLI M.I.C. RX --------- ------ Ampicillin >=32 R Cefazolin <=4 S Cefepime <=1 S Ceftriaxone <=1 S Ciprofloxacin >=4 R Gentamicin >=16 R Levofloxacin >=8 R Meropenem <=0.25 S Nitrofurantoin <=16 S Tetracycline <=1 S Pipercillin/Tazobactam <=4 S Trimethoprim/Sulfamethoxazole >=320 R Amoxicillin/Clavulanic Acid 8 S Aztreonam <=1 S Contact the Microbiology Department for any additional antibiotic reporting. * ML - Main Lab . END OF REPORT DEPARTMENT OF PATHOLOGY, [address] [place] [address] Rj Andrews M.D. Director [facility] # [id number] 10 Because ethnic data is not always readily [...] 15-29 5 Kidney failure <15 (or dialysis) 11 [facility] Severe Sepsis and Septic Shock Management Bundle Measure requires all lactic acids initially measuring >2.0 mmol/L be repeated. 12 Because ethnic data is not always readily [...] 15-29 5 Kidney failure <15 (or dialysis) 13 Acute inflammation: >10.00 14 SEE RESULT BELOW Name: ИРИНА MICHELE : [address]: Dillon Meehan MD Acct: [id number] Unit: [id number] AGE: 32 Location: ED Re11/23/17 SEX: F Status: DEP ER SPEC: [id number] JOSUE: 11/23/17-13[address] [facility] [address]: Rachel ESPINAL REQ: [id number] RECD: 11/23/17 STATUS: CHRISSY MORATAYA DR: Dillon Fonseca MD _ SOURCE: BLOOD,VENO [facility]: ORDERED: Blood Cult Procedure Result Reported Site Aerobic Culture Bottle Final 11/28/17- 1356 ML No Growth Day 5 Anaerobic Culture Bottle Final 11/28/171356 ML No Growth Day 5 * ML - Main Lab . END OF REPORT DEPARTMENT OF PATHOLOGY, [address] [place] [address] Rj Andrews M.D. Director [facility] # [id number] 15 SEE RESULT BELOW Name: ИРИНА MICHELE : [address]: Amadou De La Cruz MD Acct: [id number] Unit: [id number] AGE: 32 Location: OR Re11/19/17 SEX: F Status: DEP [facility] SPEC: [id number] JOSUE: 11/19/17- SUBM DR: Amadou De La Cruz MD REQ: [id number] RECD: 11/19/17 STATUS: SOUT _ ORDERED: LEVEL [...] The specimen is inked, serially sectioned and lifeline representatives sections are submitted in one cassette. 2. The specimen is received in formalin labeled, Left Tonsil, and consists of a 3.2 x 2.0 x 1.4 cm klein-pink ovoid cerebriform and focally cauterized tonsil. The cut surface is glistening klein-pink with normal crypts. The specimen is inked, serially sectioned and lifeline representatives sections are submitted in one cassette. Signed by and Reported on: Rj Andrews MD 05/31 0952 END OF REPORT DEPARTMENT OF PATHOLOGY, [address] [place] [address] Rj Andrews M.D. Director [facility] # [id number] 16 Acute inflammation: >10.00 17 Because ethnic data is not always [...] 5 Kidney failure <15 (or dialysis) 18 SEE RESULT BELOW Name: ИРИНА MICHELE : [address]: Velia Kapoor NP Acct: [id number] Unit: [id number] AGE: 32 Location: [facility] Re/10/18 SEX: F Status: REG REF SPEC: [id number] JOSUE: 06/23/[address] [facility] [address]: Velia Kapoor NP REQ: [id number] RECD: 06/23/17 STATUS: COMP _ SOURCE: URINE SPDESC: ORDERED: Urine Culture COMMENTS: [id number] Urine Source: Random Procedure Result Reported Site Urine Culture Final 06/25/17- 0841 ML Organism 1 ESCHERICHIA COLI [place] Count >100,000 (Many) CFU/ML 1. ESCHERICHIA COLI M.I.C. RX --------- ------ Ampicillin >=32 R Cefazolin <=4 S Cefepime <=1 S Ceftriaxone <=1 S Ciprofloxacin >=4 R Gentamicin >=16 R Levofloxacin >=8 R Meropenem <=0.25 S Nitrofurantoin <=16 S Tetracycline <=1 S Pipercillin/Tazobactam <=4 S Trimethoprim/Sulfamethoxazole >=320 R Amoxicillin/Clavulanic Acid 8 S Aztreonam <=1 S Contact the Microbiology Department for any additional antibiotic reporting. * ML - MAIN LAB (PSC1) . END OF REPORT * ML=Testing performed at Main Lab DEPARTMENT OF PATHOLOGY, [address] [place] [address] Rj Andrews M.D. Director [facility] # [id number] 19 urine had a strong foul smelling odor 20 Because ethnic data is not always readily [...] 15-29 5 Kidney failure <15 (or dialysis) 21 *Ascorbic acid is present which may interfere with detection of blood. 22 SEE RESULT BELOW Name: ИРИНА MICHELE DOB: [address]: Sen Tenorio DO Acct: [id number] Unit: [id number] AGE: 31 Location: ED Re07/30/16 SEX: F Status: DEP ER SPEC: [id number] JOSUE: 07/30/[address]: Steve ESPINAL REQ: [id number] RECD: 07/30/16 STATUS: CHRISSY MORATAYA DR: Sen Brown Maltese 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 _ SOURCE: URINE SPDESC: ORDERED: Urine Culture Procedure Result Reported Site Urine Culture Final 08/01/16- 908 ML Organism 1 ESCHERICHIA COLI [place] Count >100,000 (Many) CFU/ML 1. ESCHERICHIA COLI [...] antibiotic reporting. * ML - MAIN LAB (PSC1) . END OF REPORT * ML=Testing performed at Main Lab DEPARTMENT OF PATHOLOGY, [address] [place] [address] Rj Andrews M.D. Director [facility] # [id number] 23 Consistent with previous results on 03/22/16. 24 *Ascorbic acid is present which may interfere with detection of blood. 25 Because ethnic data is not always readily [...] 15-29 5 Kidney failure <15 (or dialysis) 26 Acute inflammation: >10.00 27 <5.0 Negative 5.0 - 25.0 Indeterminate (Repeat testing recommended after 72 hours) >25.0 Positive Perimenopausal women can display HCG levels of up to 20 mIU/mL 28 SEE RESULT BELOW Name: ИРИНА MICHELE : [address]: Blaze Byrd MD Acct: [id number] Unit: [id number] AGE: 31 Location: ED Re04/05/16 SEX: F Status: DEP ER SPEC: [id number] JOSUE: 04/05/[address] [facility] [address]: Blaze Byrd MD REQ: [id number] RECD: 04/05/16 STATUS: CHRISSY MORATAYA DR: David Grant 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 _ SOURCE: URINE SPDESC: ORDERED: Urine Culture Procedure Result Reported Site Urine Culture Final 04/06/16- 1604 ML No growth of clinically significant organisms * ML - MAIN LAB (PSC1) . END OF REPORT * ML=Testing performed at Main Lab DEPARTMENT OF PATHOLOGY, [address] [place] [address] Rj Andrews M.D. Director [facility] # [id number] 29 Because ethnic data is not always readily [...] 15-29 5 Kidney failure <15 (or dialysis) 30 [facility] Severe Sepsis and Septic Shock Management Bundle Measure requires all lactic acids initially measuring >2.0 mmol/L be repeated. 31 SEE RESULT BELOW Name: ИРИНА MICHELE : [address]: Sen Tenorio DO Acct: [id number] Unit: [id number] AGE: 31 Location: ED Re03/01/16 SEX: F Status: DEP ER SPEC: [id number] JOSUE: 03/01/16-[address]: Aracely ESPINAL REQ: [id number] RECD: 03/01/16 STATUS: CHRISSY MORATAYA DR: Stephie Tenorio DO _ SOURCE: URINE SPDESC: ORDERED: Urine Culture Procedure Result Reported Site Urine Culture Final 03/03/16- 1015 ML No growth of clinically significant organisms * ML - MAIN LAB ([facility]) . END OF REPORT * ML=Testing performed at Main Lab DEPARTMENT OF PATHOLOGY, [address] [place] [address] Rj Andrews M.D. Director [facility] # [id number] 32 Because ethnic data is not always readily [...] 15-29 5 Kidney failure <15 (or dialysis) 33 Acute inflammation: >10.00 34 Please note: The following may produce a false positive D Dimer test: - Rheumatoid factor greater than 60 IU/ml - Plasma hemoglobin greater than 0.05 gm/dl - Bilirubin greater than 50 mg/dl - Lipids greater than 1000 mg/dl - FDP greater than 20 ug/ml 35 Because ethnic data is not always readily [...] 15-29 5 Kidney failure <15 (or dialysis) 36 Because ethnic data is not always readily [...] 15-29 5 Kidney failure <15 (or dialysis) 37 Acute inflammation: >10.00 38 [facility] Severe Sepsis and Septic Shock Management Bundle Measure requires all lactic acids initially measuring >2.0mmol/L be repeated. 39 <5.0 Negative 5.0 - 25.0 Indeterminate (Repeat testing recommended after 72 hours) >25.0 Positive Perimenopausal women can display HCG levels of up to 20 mIU/mL 40 SEE RESULT BELOW Name: ИРИНА MICHELE : [address]: Richard Cortes MD Acct: [id number] Unit: [id number] AGE: 30 Location: ED Re07/14/15 SEX: F Status: DEP ER SPEC: [id number] JOSUE: 07/14/[address] [facility] [address]: Anju Kwan MD REQ: [id number] RECD: 07/14/15 STATUS: CHRISSY MORATAYA DR: Stephie Valle MD _ SOURCE: URINE [facility]: ORDERED: Urine Culture Procedure Result Reported Site Urine Culture Final 07/16/15- 0823 ML Organism 1 ESCHERICHIA COLI [place] Count >100,000 (Many) CFU/ML 1. ESCHERICHIA COLI [...] antibiotic reporting. * ML - MAIN LAB (PSYCHIATRIC) . END OF REPORT * ML=Testing performed at Main Lab DEPARTMENT OF PATHOLOGY, [facility][note 3] [place] [address] Rj Andrews M.D. Director [facility] # [id number] RUN DATE: 06/26/14 [facility] LAB LIVE PAGE 1 RUN TIME: 1521 [facility][note 3] [place], [place] [address] Specimen Inquiry Name: ИРИНА MICHELE : [address]: Sayra Houser NP Acct: [id number] Unit: [id number] AGE: 29 Location: [facility] Re06/25/14 SEX: F Status: REG REF SPEC: [id number] JOSUE: 06/25/14-[address]: Sayra Houser NP REQ: [id number] RECD: 06/25/14 STATUS: SOUT _ ORDERED: IMAGE [...] and 68. Signed (signature on file) JOHN Negro(ASCP) 1522 This Pap test was evaluated with the assistance of the DiaDerma BVPrep Test Imaging System. Due to cytologic findings at the conduit mechanic microscope, comprehensive manual rescreening by a Scientific Aide may be required. The Pap Smear is [...] performed at Main Lab DEPARTMENT OF PATHOLOGY, [facility][note 3] [place], [place] [address] RUN DATE: 06/26/14 [facility] LAB LIVE PAGE 1 RUN TIME: 0675 [facility][note 3] [place], [place] [address] Specimen Inquiry Patient: ИРИНА MICHELE [id number] (Continued) Rj Andrews M.D. Director [facility] # [id number] 42 The high-risk HPV types detected by the assay include: 16, 18, 31, 33, 35, 39, 45, 51, 52, 56, 58, 59, 66, and 68. 43 RUN DATE: 10/18/13 [facility] LAB LIVE PAGE 1 RUN TIME: 4260 [facility][note 3] [place], [place] [address] Specimen Inquiry Name: ИРИНА MICHELE : [address]: Beto Bose Acct: [id number] Unit: [id number] AGE: 28 Location: ED Re10/16/13 SEX: F Status: DEP ER SPEC: [id number] JOSUE: 10/16/[address]: Beto Sarabia DO REQ: [id number] RECD: 10/16/13 STATUS: CHRISSY MORATAYA DR: Stephie Valle MD _ SOURCE: THROAT SPDESC: ORDERED: Rapid Strep A, Throat Beta Str Procedure Result Verified Site Rapid Strep A Final 10/16/13- 0742 ML Organism 1 Negative Strep Group A Antigen testing by enzyme immunoassay. The freight unloader and regulatory agencies both recommend that a throat culture for beta strep be performed if a Rapid Group A Strep assay yields a negative result. Therefore a culture will be automatically performed on all negative samples. Throat Beta Strep Culture Final 10/18/13- 0844 ML Negative For Group A Beta Streptococcus END OF REPORT * ML=Testing performed at Main Lab DEPARTMENT OF PATHOLOGY, [facility][note 3] [place], [place] [address] Rj Andrews M.D. Director [facility] Permit #[id number] 44 RUN DATE: 10/16/13 [facility] LAB LIVE PAGE 1 RUN TIME: [address] [place] [address] Specimen Inquiry Name: ИРИНА MICHELE : [address]: Beto Bose Acct: [id number] Unit: [id number] AGE: 28 Location: ED Re10/16/13 SEX: F Status: REG ER SPEC: [id number] JOSUE: 10/16/[address]: Beto Sarabia DO REQ: [id number] RECD: 10/16/13 STATUS: DARIUS MORATAYA DR: Stephie Valle MD _ [facility]: Rapid Strep A, Throat Beta Str Procedure Result Verified Site Rapid Strep A Final 10/16/13741 ML Organism 1 Negative Strep Group A Antigen testing by enzyme immunoassay. The freight unloader and regulatory agencies both recommend that a throat culture for beta strep be performed if a Rapid Group A Strep assay yields a negative result. Therefore a culture will be automatically performed on all negative samples. Throat Beta Strep Culture PENDING END OF REPORT * ML=Testing performed at Main Lab DEPARTMENT OF PATHOLOGY, [address] [place] [address] Rj Andrews M.D. Director [facility] Permit #[id number] RUN DATE: 05/30/12 [facility] LAB LIVE PAGE 1 RUN TIME: [address] [place] [address] Specimen Inquiry Name: ИРИНА MICHELE Tina : [address]: Jesse Ardon MD Acct: [id number] Unit: [id number] AGE: 27 Location: ED Re05/28/12 SEX: F Status: DEP ER SPEC: [id number] JOSUE: 05/28/[address]: Cristi ESPINAL REQ: [id number] RECD: 05/28/12 STATUS: CHRISSY MORATAYA DR: Leonard JARA,Stephie Ardon MD _ SOURCE[facility] ORDERED: Culture Stain COMMENTS: Comment: upper abscess [...] performed at Main Lab DEPARTMENT OF PATHOLOGY, [facility][note 3] [place], [place] [address] Rj Andrews M.D. Director [facility] Permit #[id number] RUN DATE: 05/30/12 [facility] LAB LIVE PAGE 2 RUN TIME: 1013 [facility][note 3] [place], [place] [address] Specimen Inquiry Patient: ИРИНА MICHELE [id number] (Continued) Specimen: [id number] Collected: 05/28/12 Received: 05/28/12 (Continued) Procedure Result Verified Site Wound/Misc Culture Final (continued) 05/30/12- 1012 1. MRSA (continued) M.I.C. RX --------- ------ Vancomycin 1 S Imipenem-Deduced R Ampicillin/Sulbactam-Deduced R Cefazolin-Deduced R * These antibiotics are not available in the [facility] Formulary Contact the Microbiology Department for any additional antibiotic reporting. END OF REPORT * ML=Testing performed at Main Lab DEPARTMENT OF PATHOLOGY, [address] [place] [address] Rj Andrews M.D. Director [facility] Permit #[id number] RUN DATE: 05/30/12 [facility] LAB LIVE PAGE 1 RUN TIME: 101 [address] [place], [place] [address] Specimen Inquiry Name: ИРИНА MICHELE : [address]: Jesse Ardon MD Acct: [id number] Unit: [id number] AGE: 27 Location: ED Re05/28/12 SEX: F Status: DEP ER SPEC: [id number] JOSUE: 05/28/[address]: Cristi ESPINAL REQ: [id number] RECD: 05/28/12 STATUS: CHRISSY MORATAYA DR: Leonard JARA,Stephie Ardon MD _ SOURCE: DARIA HARP [facility]: ORDERED: Culture Stain COMMENTS: Comment: lower abscess Procedure Result Verified Site Wound/Misc Gram Stain Final 05/29/12- 0759 ML 2+ Polys 2+ Gram Positive Cocci Wound/Misc Culture Final 05/30/12- 1014 ML Organism 1 MRSA Quantity 2+ Please refer to MB [id number] for sensitivity testing Consistent with previous results. END OF REPORT * ML=Testing performed at Main Lab DEPARTMENT OF PATHOLOGY, [facility][note 3] [place] [address] Rj Andrews M.D. Director [facility] Permit #[id number] 47 RUN DATE: 04/23/12 [facility] LAB LIVE PAGE 1 RUN TIME: 1234 [facility][note 3] [place], [place] [address] Specimen Inquiry Name: ИРИНА MICHELE Tina : [address]: Leonard JARA ,Stephie Villa Acct: [id number] Unit: [id number] AGE: 27 Location: [facility] Re04/21/12 SEX: F Status: REG REF SPEC: [id number] JOSUE: 04/21/12-1712 [facility] [address]: Leonard JARA, Stephie Villa REQ: [id number] RECD: 04/21/12 STATUS: COMP _ SOURCE: NO SOURCE [facility]: ORDERED: MRSA Cult Scrn COMMENTS: AXILLA Consistent with previous results. QUERIES: Medent Number [id number] Procedure Result Verified Site MRSA Culture Screen Final 04/23/12- 1234 ML Organism 1 MRSA END OF REPORT * ML=Testing performed at Main Lab DEPARTMENT OF PATHOLOGY, [address] [place] [address] Rj Andrews M.D. Director [facility] Permit #[id number] 48 RUN DATE: 04/23/12 [facility] LAB LIVE PAGE 1 RUN TIME: [address] [place] [address] Specimen Inquiry Name: ИРИНА MICHELE : [address]: Leonard JARA ,Stephie Villa Acct: [id number] Unit: [id number] AGE: 27 Location: [facility] Re04/21/12 SEX: F Status: REG REF SPEC: [id number] JOSUE: 04/21/12-[address]: Stephie Valle MD REQ: [id number] RECD: 04/21/12 STATUS: COMP _ SOURCE: NASAL SPDESC: ORDERED: MRSA Cult Scrn QUERIES: Medent Number [id number] Procedure Result Verified Site MRSA Culture Screen Final 04/23/12- 1234 ML MRSA Screen No MRSA Isolated END OF REPORT * ML=Testing performed at Main Lab DEPARTMENT OF PATHOLOGY, [address] [place] [address] Rj Andrews M.D. Director [place] [facility] Permit #[id number] If is still suspected, please repeat test after 48 to 72 hours. . This test detects intact HCG only and is indicated for the early detection of . 50 RUN DATE: 12/07/11 [facility] NMI LIVE PAGE 1 RUN TIME: 929 Specimen Inquiry RUN USER: INTERFACE Name: ИРИНА MICHELE Status: ZHAO ER Re12/05/11 Age/Sex: 26/F Unit#: [id number] Location: ED : [birth year] SPEC #: [id number] JOSUE: 12/05/11 STATUS: COMP REQ #: [id number] RECD: 12/05/[address]: [facility] SOURCE: WOUND ENTR: 12/05/[address]: Leonard JARA,Stephie [place] SPDESC: AXILLA,RIG ORDERED: CULT SENS/GS COMMENTS: COMMENTS: SKIN ABSCESS ACT WKST: B 12/07/11 #1 Procedure Result Verified Site > CULTURE SENSITIVITY Final 12/07/11- 0930 ML Organism 1 METH RESIST S. AUREUS [...] *These antibiotics are not available in the [facility] Formulary. Contact the Microbiology Department for any additional antibiotic reporting. > GRAM STAIN SMEAR Final 12/06/11- 8241 ML DEPARTMENT OF PATHOLOGY, [address] [place] [address] [facility] Permit #[id number] Darin Cowan M.D. [employer] RUN DATE: 12/07/11 [facility] NMI LIVE PAGE 2 RUN TIME: 929 Specimen Inquiry RUN USER: INTERFACE Name: ИРИНА MICHELE Status: ZHAO MARTINEZ Re12/05/11 Age/Sex: 26/F Unit#: [id number] Location: [place] Reed. : [birth year] -- -- CONTINU ED Procedure Result Verified Site GRAM STAIN SMEAR Final (continued) 12/06/11- 732 POLYS MANY SMEAR: MANY GRAM POSITIVE COCCI - [facility] Permit #[id number] [facility][note 3] [place] [address] DEPARTMENT OF PATHOLOGY, [facility][note 3] [place], [place] [address] [facility] Permit #[id number] Rj Andrews M.D. Director Zulma Joy M.D. [employer] Procedures Date Code Description Status 01/04/2012 82925 Noninvasive Ear Or Pulse Oximetry For Oxygen Saturation Completed 12/28/2011 10376 Inhalation TX For Acute Airway Obstruction Completed W/Nebulizer/Inhaler Encounters Type Date Location Provider Dx Diagnosis Office Visit 09/12/2018 [facility] Internal Lupis Chou MD J45.901 Unspecified asthma 3:40p Medicine with (acute) exacerbation H60.321 Hemorrhagic otitis externa, right ear Office Visit 02/04/2018 9:40a [facility] Internal James Longoria F31.10 Bipolar disordShelly M.D.,FACP crnt episode [address] manic w/o psych features, unsp N39.0 Urinary tract infection, site not specified Office Visit 12/21/2017 4:00p [facility] Internal James Longoria F31.10 Bipolar disordShelly M.D.,FACP crnt episode manic w/o psych features, unsp F43.10 Post-traumatic stress disorder, unspecified Office Visit 12/10/2017 9:00a [facility] Internal James Longoria F31.10 Bipolar disordShelly M.D.,FACP crnt episode [address] manic w/o psych features, unsp F43.10 Post-traumatic stress disorder, unspecified Office Visit 11/26/2017 3:40p [facility] Internal Pepperofia F43.10 Post-traumatic Medicine - Mik, AUTOMATION DRIVER stress disorder, [address] unspecified F31.9 Bipolar disorder, unspecified F41.9 Anxiety disorder, unspecified R51 Headache Z79.899 Other intermediate project manager (current) drug therapy Office Visit 06/23/2017 11:10a [facility] Internal Velia Kapoor, M54.5 Low back pain Medicine - [place] 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 [address] N39.0 Urinary tract infection, site not specified Office Visit 05/19/2017 8:30a [facility] Internal Velia F41.9 Anxiety disorder , Medicine - Emelia, 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 unspecified [address] F50.9 Eating disorder, unspecified Z23 Encounter for immunization B37.9 Candidiasis, unspecified B37.2 Candidiasis of skin and nail Office Visit 09/07/2016 12:40p [facility] Internal David Grant F31.9 Bipolar disorder, Medicine - [place] 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 unspecified Rd F43.10 Post-traumatic stress disorder, unspecified F41.9 Anxiety disorder, unspecified Office Visit 03/09/2016 [facility] J45.901 Unspecified asthma 10:30a [facility] Y[facility]anda with (acute) Conference Services Coordinator exacerbation Office Visit 03/03/2016 [facility] J45.901 Unspecified asthma 8:00a [facility] with (acute) Conference Services Coordinator exacerbation Office Visit 03/02/2016 [facility] Internal David Grant, J45.41 Moderate 11:40a Medicine - [place] 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 persistent asthma Rd with (acute) exacerbation R11.0 Nausea Office Visit 02/28/2016 [facility] Internal Blaze Davies J45.909 Unspecified asthma, 11:40a Shelly Torres M.D. uncomplicated [place] Office Visit 08/30/2015 [facility] J45.909 Unspecified asthma , 9:45a [facility] uncomplicated Conference Services Coordinator G47.9 Sleep disorder, unspecified E66.09 Other obesity due to excess calories Office Visit 08/27/2015 12:40p [facility] Internal Stephie Valle J45.901 Unspecified asthma Medicine M.DLynette with (acute) exacerbation Office Visit 04/25/2015 3:20p [facility] Internal Stephie Valle F41.9 Anxiety disorder, Medicine M.D. unspecified M54.5 Low back pain Z23 Encounter for immunization Office Visit 04/01/2015 9:00a [facility] Internal David Rivers, F41.9 Anxiety disorder, Medicine 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 unspecified J45.20 Mild intermittent asthma, uncomplicated J45.21 Mild intermittent asthma with (acute) exacerbation Office Visit 03/18/2015 1:00p [facility] Internal David Rivers, F41.9 Anxiety disorder, Medicine 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 unspecified L03.011 Cellulitis of right finger Office Visit 01/18/2015 12:40p [facility] Internal Stephie Valle, 493.00 Asthma Extrinsic Medicine M.D. Unspecified 300.00 Anxiety State Unspec 112.3 Candidiasis Skin & Nails Office Visit 01/14/2015 1:00p [facility] Internal David Rivers NP 786.05 Shortness Of Medicine Breath Office Visit 01/11/2015 2:00p [facility] Internal Ethan El NP 786.05 Shortness Of Medicine Breath Office Visit 12/25/2014 11:00a [facility] Internal David Grant, 346.10 Migraine Common Medicine - 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 W/O Intractable [address] W/O Status Migrainosus Office Visit 09/28/2014 2:00p [facility] Internal Stephie Valle, 493.00 Asthma Extrinsic Medicine M.D. Unspecified Office Visit 06/25/2014 3:00p [facility] Internal Sayra Houser, V72.31 Routine Marketing Financial Analyst Medicine AUTOMATION DRIVER Examination 112.1 Candidiasis The Vulva & Vagina 616.10 Vaginitis & Vulvovaginitis Unspec 300.00 Anxiety State Unspec 626.4 Irregular Menstrual Cycle Office Visit 02/13/2014 [facility] Internal Stephie 311 Depressive Disorder 1:40p Shelly Valle M.D. Not Elsewhere Spec Office Visit 07/26/2012 [facility] Internal Briana 465.9 URI Upper 12:30p Medicine Sandro, Respiratory N.P. Infections Acute Unspec Sites Office Visit 05/31/2012 [facility] Gage Longoria V12.04 Personal HX Of 11:30a For Infectious [place], Methicillin Diseases M.D. Resistant Staphylococcus Aureus Office Visit 05/18/2012 [place] Miguel Ángel Guerrero 346.10 Migraine Common W/O 2:30p Neurologic Darin Lunsford Intractable W/O Services Of [facility] Status Migrainosus Office Visit 04/27/2012 [facility] Gage Longoria 682.8 Cellulitis & Abscess 1:00p For Infectious [place], Other Spec Sites Diseases M.D. Office Visit 04/21/2012 [facility] Internal Stephie V12.04 Personal HX Of 4:40p Shelly Valle M.D. Methicillin Resistant Staphylococcus Aureus Office Visit 04/05/2012 [facility] Internal Stephie V04.81 Need For 4:40p Shelly Valle M.D. Prophylactic Vaccination & Inoculation/Influenz a V12.04 Personal HX Of Methicillin Resistant Staphylococcus Aureus V70.0 Examination General Medical Routine AT Health Care Facility V04.81 Need For Prophylactic Vaccination & Inoculation/Influenza Office Visit 02/02/2012 4:00p [facility] Internal Stephie V12.04 Personal HX Of Shelly Valle M.D. Methicillin Resistant Staphylococcus Aureus Office Visit 01/04/2012 2:20p [facility] Internal Stephie 466.0 Bronchitis Acute Medicine Darin Valle 278.00 Obesity Unspec Office Visit 12/28/2011 2:40p [facility] Internal Stephie Valle 466.0 Bronchitis Acute Medicine Darin Office Visit 10/22/2011 3:00p [facility] Internal Stephie Valle 346.10 Migraine Common Medicine Darin W/O Intractable W/O Status Migrainosus Plan of Treatment 10/18/2018 - Lupis Chou MD66.92 Otitis media, unspecified, left earNew Medication:Fluconazole 150 mg - take one tablet today; repeat in 2 daysComments: Please take antibiotic Start to use Flonase over the counterContinue [facility] E[facility]
--- OUTSIDE RECORDS SUMMARY | 2018-10-19 12:28 | XMS REPORT | Continuity of Care Document ---
:1985 External Reference #:[id number] Author Name Jose Kennedy M.D. Address [address] [place] [address] Care Team Providers Name Role Phone Lupis Chou M.D. Care Team Information Claims Vice President Unavailable Lupis Chou M.D. Primary Care Physician Unavailable Payers Date Identification Numbers Payment Provider Subscriber Effective: Policy Number: [id number] [facility] Group Number: [id number] # [id number] Group Name: Medicaid [place] [address] PayID: [id number] Advance Directives Description No Information Available Problems Date Description Provider Status Onset: 09/12/2018 Asthma without status asthmaticus Jose Kennedy M.D. 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 Home Environment Does not have an air [...] home Home Environment The home is not dex Home Environment The floors are carpeted Home Environment The floors are tile Home Environment Uses baseboard heating Home Environment Uses hot water heating Home Environment Uses natural gas heating Home Environment Lives in an old [place] in the [facility] Home Environment Water Source: [facility] Smoke-Free Home is smoke-free Pets None Occupation [...] Form Strength Qnty SIG Indications Ordering Provider Symbicort 09/19/ Active Aerosol 160-4.5mcg 6gm 2 puffs q12 J45.998 Jose 2019 /Act Darin Kennedy Spiriva 09/19/ Active Aerosol 1.25mcg/Ac 4gm 2 inhalation J45.998 [facility] Respimat 2019 t once a day Darin Kennedy Prednisone 09/13/ Active Tablets 10mg 15tabs 30 mg po Jose 2019 once a day Marcia for 5 days Darin Amoxicillin/C / Active Tablets 875-125mg Unknown lavulanate 0000 Potassium Ipratropium / Active Solution 0.5-2.5(3) Inhale Unknown [place]/Albut 0000 mg/3ML Contents Of gurwinder Sulfate 1 Vial Via Nebulizer Every 6 Hours as Needed For Wheezing/Skye rness Of Breath Ventolin HFA / Active Aerosol 108(90Base Inhale 2 Unknown 0000 ) mcg/Act Puffs Every 6 Hours as Needed For Wheezing/Skye rness Of Breath Divalproex / Active Tablets DR 500mg Unknown Sodium 0000 Lorazepam / Active Tablets 1mg Unknown 0000 Latuda / Active Tablets 60mg Unknown 0000 Medical / Active Unknown [place] 0000 Symbicort / Active Aerosol 160-4.5mcg 2 Unknown 0000 /Act inhalations am&pm Spiriva / Active Aerosol 1.25mcg/Ac 2 puffs once Unknown Respimat 0000 t daily Immunizations Description No Information Available Vital Signs Date Vital Result Comment 09/19/2018 4:50pm Height 62 inches 5'2" Weight [...] Information Available Procedures Date Code Description Status 09/19/2018 23644 Nitric Oxide Gas Determination Completed 09/19/2018 15723 Pre PFT Completed 09/12/2018 09371 Nitric Oxide Gas Determination Completed 09/12/2018 41377 Pulmonary Function Test Completed Encounters Type Date Location Provider Dx Diagnosis Office Visit 09/19/2018 5:00p Arina Kennedy M.D. J45.998 Other asthma Office Visit 09/12/2018 4:00p Arina Kennedy M.D. J45.998 Other asthma Plan of Treatment Future Appointment(s):09/23/2018 9:00 am - Allergy Testing at [id number]/19/2018 - Jose Kennedy M.D.J45.998 Other asthmaNew Medication:Symbicort 160-4.5 mcg/Act - 2 puffs [id number] Respimat 1.25 mcg/Act - 2 inhalation once a dayFollow up:* TAKE NO ANTIHISTAMINES OR MEDICATIONS THAT CONTAIN ANTIHISTAMINES 72 HOURS PRIOR TO SKIN TESTING VISIT . Wednesday morning on the skin testing scheduleRecommendations:she is feeling lot better PFT looks better and her AUDELIA has come down to 12 from 66(significant improvement ) stopped Smoking ( deserves a pat on her back) continue with Symbicort 160/4.5, 2 puff every12 hour Spiriva 1.25, 2 inhalation once a day ventolin as needed (the target being to use less thantwice week but it will happen gradually) we will do the skin testing this coming Wednesday to look in to the allergy aspect of it and depending on what she is allergic we can consider immunotherapy
[2018-10-19] MEDS ORDERED: Ondansetron INJ* 2 MG/ML VIAL IV ONE (12:44)
[2018-10-19 13:10] LABS: ABS Basophils 0.1 10^3/ul (0-0.2); ABS Eosinophils 0.6 10^3/ul (0-0.6); ABS Lymphocytes 2.1 10^3/ul (1.0-4.8); ABS Monocytes 0.8 10^3/ul (0-0.8); ABS Neutrophils 6.9 10^3/ul (1.5-7.7); Eosinophil % 5.4 %; Hematocrit 38 % (35-47); Hemoglobin 12.9 g/dL (12.0-16.0); Lymphocyte % 20.5 %; Mean Corpuscular HGB Conc 34 g/dL (31-36); Mean Corpuscular Hemoglobin 30 pg (27-31); Mean Corpuscular Volume 88 fL (80-97); Platelet Count 296 10^3/uL (150-450); Red Blood Count 4.33 10^6 /uL (3.70-4.87); Red Cell Distribution Width 14 % (10.5-15); White Blood Count 10.5 10^3/uL (3.5-10.8)
[2018-10-19] MEDS ORDERED: Albuterol/Ipratropium NEB.SOL* Albuterol 2.5 MG/Ipratropium 0.5 MG 3 ML INH ONE (13:11)
[2018-10-19 13:25] LABS: ALT 16 U/L (7-52); AST 12 U/L (13-39); Albumin 4.4 g/dL (3.2-5.2); Albumin/Globulin Ratio 1.6 (1-3); Alkaline Phosphatase 71 U/L (34-104); Anion Gap 10 mmol/L (2-11); Blood Urea Nitrogen 9 mg/dL (6-24); C Reactive Protein 15.71 mg/L (<8.01); CO2 Carbon Dioxide 21 mmol/L (22-32); Calcium 9.3 mg/dL (8.6-10.3); Chloride 107 mmol/L (101-111); EGFR African American 161.8 (>60); EGFR Non-African American 133.7 (>60); Globulin 2.7 g/dL (2-4); Glucose 97 mg/dL (70-100); Potassium 3.6 mmol/L (3.5-5.0); Sodium 138 mmol/L (135-145); Total Protein 7.1 g/dL (6.4-8.9)
[2018-10-19 13:31] LABS: HCG Pregnancy < 0.60 mIU/mL
--- NOTE | 2018-10-19 13:45 | ED ---
Asthma - HPI Summary HPI Summary: Pt. is a 33 y.o female who presents to the ER for SOB and cough for several days. Pt. notes hx of asthma. Pt. currently on Spiriva, symbicort and albuterol. Pt. was at ENT office prior to arrival for ear pain and was sent to ER for further evaluation of cough and wheeze. Pt. denies fever, chills, abd. pain, v/d, sore throat. Psychiatric hx. Sxs are moderate in severity. No current modifying factors. - History of Current Complaint Chief Complaint: EDAsthma Stated Complaint: ASTHMA ATTACK PER EMS Time Seen by Provider: 10/19/18 12:12 Hx Obtained From: Patient Hx Last Menstrual Period: 08/27/18 Pain Intensity: 7 - Allergy/Home Medications Allergies/Adverse Reactions: Allergies Allergy/AdvReac Type Severity Reaction Status Date / Time No Known Allergies Allergy Verified 10/19/18 12:17 Home Medications: Home Medications Ipratropium/Albuterol Sulfate [Iprat-Albut 0.5-3(2.5) mg/3 ml] 2 puff INH BID [History Confirmed 10/19/18] LORazepam [Lorazepam] 0.5 - 1 mg PO SEE INSTRUCTIONS 10/19/18 [History Confirmed 10/19/18] PMH/Surg Hx/FS Hx/Imm Hx Previously Healthy: Yes Endocrine/Hematology History: Denies: Hx Anticoagulant Therapy, Hx Blood Disorders, Hx Diabetes, Hx Thyroid Disease, Hx Unexplained Bleeding Cardiovascular History: Denies: Hx Congestive Heart Failure, Hx Deep Vein Thrombosis, Hx Hypertension , Hx Myocardial Infarction, Hx Pacemaker/ICD, Other Cardiovascular Problems/ Disorders Respiratory History: Reports: Hx Asthma - childhood asthma, recurred 6 yrs ago after of son, Hx Chronic Obstructive Pulmonary Disease (COPD) - "bronchitis 2 x a year" + smoking and CXR + obstructive dz Denies: Hx Lung Cancer, Hx Pneumonia, Hx Pulmonary Embolism GI History: Denies: Hx Gall Bladder Disease, Hx Gastrointestinal Bleed, Hx Ulcer, Hx Urosepsis History: Reports: Other Problems/Disorders - Essure in place Denies: Hx Kidney Stones, Hx Renal Disease Sensory History: Reports: Hx Contacts or Glasses Denies: Hx Hearing Aid Opthamlomology History: Reports: Hx Contacts or Glasses Neurological History: Reports: Hx Migraine Denies: Hx Dementia, Hx Seizures, Hx Transient Ischemic Attacks (TIA) Psychiatric History: Reports: Hx Anxiety, Hx Depression, Hx Post Traumatic Stress Disorder, Hx Bipolar Disorder Denies: Hx Schizophrenia, Hx of Violent Episodes Against Others - Cancer History Cancer Type, Location and Year: None reported - Surgical History Surgery Procedure, Year, and Place: Ceserian section x3. cholecystectomy. 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 Denies: Hx Clostridium Difficile, Hx Hepatitis, Hx Human Immunodeficiency Virus (HIV), Hx Shingles, Hx Tuberculosis, Hx Known/Suspected VRE, History Other Infectious Disease, Traveled Outside the [place] in Last 30 Days - Family History Known Family History: Positive: Diabetes, Other - cancer, Non-Contributory Negative: Cardiac Disease, Hypertension - Social History Occupation: Unemployed Lives: With Family Alcohol Use: Occasionally Alcohol Amount: "I don't like ETOH" Hx Substance Use: Yes Substance Use Type: Reports: Marijuana Substance Use Comment - Amount & Last Used: Pt has medical marijuana cared Hx Tobacco Use: Yes Smoking Status (MU): Light Every Day Tobacco Smoker Type: Cigarettes Amount Used/How Often: 1/2 PPD Have You Smoked in the Last Year: Yes Review of Systems Constitutional: Negative Negative: Fever, Chills Eyes: Negative ENT: Negative Cardiovascular: Negative Negative: Palpitations, Chest Pain Positive: Shortness Of Breath, Cough Gastrointestinal: Negative Negative: Abdominal Pain, Vomiting, Diarrhea, Nausea Genitourinary: Negative Musculoskeletal: Negative Skin: Negative Neurological: Negative All Other Systems Reviewed And Are Negative: Yes Physical Exam Triage Information Reviewed: Yes Vital Signs On Initial Exam: Initial Vitals Pulse Resp BP Pulse Ox 78 9 150/95 96 10/19/18 12:05 10/19/18 12:05 10/19/18 12:05 10/19/18 12:05 Vital Signs Reviewed: Yes Appearance: Positive: Well-Appearing - Pt. sitting on chair in NAD. Breathing easily on RA. Skin: Positive: Warm, Dry Head/Face: Positive: Normal Head/Face Inspection Eyes: Positive: Normal, EOMI, VIJAY ENT: Positive: Pharynx normal, TMs normal. Negative: Tonsillar swelling, Tonsillar exudate Neck: Positive: Supple Respiratory/Lung Sounds: Positive: Other - Expiratory wheeze with prolonged expiratory phase. No accessory muscle use, no stidor. Cardiovascular: Positive: Normal, RRR Musculoskeletal: Positive: Normal, Strength/ROM Intact Neurological: Positive: Normal, CN Intact II-III Psychiatric: Positive: Affect/Mood Appropriate Diagnostics - Vital Signs Vital Signs Temp Pulse Resp BP Pulse Ox 10/19/18 13:00 80 25 99 10/19/18 12:35 87 15 144/83 97 10/19/18 12:27 81 17 97 10/19/18 12:08 98.9 F 96 22 150/95 99 10/19/18 12:05 78 9 150/95 96 - Laboratory Lab Results: Lab Results 10/19/18 10/19/18 10/19/18 Range/Units 12:47 12:47 12:47 WBC 10.5 (3.5-10.8) 10^3/uL RBC 4.33 (3.70-4.87) 10^6 /uL Hgb 12.9 (12.0-16.0) g/dL Hct 38 (35-47) % MCV 88 (80-97) fL MCH 30 (27-31) pg MCHC 34 (31-36) g/dL RDW 14 (10.5-15) % Plt Count 296 (150-450) 10^3/uL MPV 9.0 (7.4-10.4) fL Neut % (Auto) 65.7 % Lymph % (Auto) 20.5 % [place] % (Auto) 7.5 % Eos % (Auto) 5.4 % Baso % (Auto) 0.9 % Absolute Neuts (auto) 6.9 (1.5-7.7) 10^3/ul Absolute Lymphs (auto) 2.1 (1.0-4.8) 10^3/ul Absolute Monos (auto) 0.8 (0-0.8) 10^3/ul Absolute Eos (auto) 0.6 (0-0.6) 10^3/ul Absolute Basos (auto) 0.1 (0-0.2) 10^3/ul Absolute Nucleated RBC 0.0 10^3/ul Nucleated RBC % 0.0 Sodium 138 (135-145) mmol/L Potassium 3.6 (3.5-5.0) mmol/L Chloride 107 (101-111) mmol/L Carbon Dioxide 21 L (22-32) mmol/L Anion Gap 10 (2-11) mmol/L BUN 9 (6-24) mg/dL Creatinine 0.53 (0.51-0.95) mg/dL Est GFR ( Amer) 161.8 (>60) Est GFR (Non-Af Amer) 133.7 (>60) BUN/Creatinine Ratio 17.0 (8-20) Glucose 97 (70-100) mg/dL Lactic Acid 0.7 (0.5-2.0) mmol/L Calcium 9.3 (8.6-10.3) mg/dL Total Bilirubin 0.40 (0.2-1.0) mg/dL AST 12 L (13-39) U/L ALT 16 (7-52) U/L Alkaline Phosphatase 71 (34-104) U/L C-Reactive Protein 15.71 H (<8.01) mg/L Total Protein 7.1 (6.4-8.9) g/dL Albumin 4.4 (3.2-5.2) g/dL Globulin 2.7 (2-4) g/dL Albumin/Globulin Ratio 1.6 (1-3) Beta HCG, Quant < 0.60 mIU/mL Result Diagrams: 10/19/18 12:47 10/19/18 12:47 Lab Statement: Any lab studies that have been ordered have been reviewed, and results considered in the medical decision making process. Asthma Course/Dx - Course Course Of Treatment: Pt. presenting for worsening cough and SOB. She is afebrile. O2 saturation is 96% on RA. Pt. has diffuse wheeze on exam. Pt. states she has had prednisone before and it made her manic and needed to be admitted to the [facility]. Pt. states that magesium has helped her in the past. Will give duoneb and mag. CXR is negative for infiltrate or acute findings, per radiology. Labs are unremarkable. CRP minimally elevated. 1400: On re-exam pt. states she is feeling a little loser but still wheezing on auscultation. Pt. agreeable with IV steroids. Will give hour long albuterol tx and reassess. 1505 : Pt. had about 30minutes of hour long. Pt. states she needs to leave the ER and want to go home. On re-auscultation wheeze has improved but is still there slightly on expiratory. O2 around 100% with ambulation. Will dc home. Pt. notes ENT rx her augmentin today for sinus infection. Pt. does not prednisone. Rx for duoneb given. To see PCP in 1-2 days for recheck. Will return to ER if sxs change or worsen. Pt understands and agrees with plan. - Diagnoses Differential Diagnosis/HQI/PQRI: Positive: Acute Asthma, Bronchitis, Pneumonia Provider Diagnoses: Asthma exacerbation Discharge - Sign-Out/Discharge Documenting (check all that apply): Patient Departure Patient Received Moderate/Deep Sedation with Procedure: No - Discharge Plan Condition: Improved Disposition: HOME Prescriptions: Albuterol/Ipratropium NEB.SERA* [Duoneb (Albuterol 2.5 MG/Ipratropium 0.5 MG)] 1 neb INH Q6H PRN #30 neb.sera PRN Reason: Wheezing Patient Education Materials: Asthma (ED) Referrals: Lupis Chou MD [Primary Care Provider] - Additional Instructions: Follow up with PCP in 1-2 days Breathing treatments as directed Return to ER if symptoms change or worsen - Billing Disposition and Condition Condition: IMPROVED Disposition: Home
[2018-10-19] MEDS ORDERED: methylPREDNISolone 125 MG* 2 ML VIAL IV ONE (13:59)
[2018-10-19] MEDS ORDERED: Albuterol 0.5% CONC NEB.SOL* 5 MG/ML 20 ml BOT INH ONE (13:59)
[2018-10-19 15:21] VITALS: BP 154/88
== END 2018-10-19 15:21 | disposition home or self-care (01) ==
LOC: ED 12:00
DX: J45.901 Unspecified asthma with (acute) exacerbation (principal); J44.9 Chronic obstructive pulmonary disease, unspecified; F17.210 Nicotine dependence, cigarettes, uncomplicated
CPT/HCPCS: 36415; 71046; 80053; 83605; 84702; 85025; 86140; 96365; 96366; 96375; 99282; A9270-GY; J2405; J2930; J3475; J7611

== ENCOUNTER 2019-03-22 16:09 | Emergency (ER) | payer OTHER ==
[2019-03-22] MEDS ORDERED: Ibuprofen TAB* 800 MG PO ONE (16:49)
--- NOTE | 2019-03-22 17:02 | ED ---
Skin Complaint - HPI Summary HPI Summary: Pt. is a 34 y.o female who presents to the ER for burn to her left arm that occurred just prior to arrival. Pt. states she was cooking chicken when the grease splashed onto her left arm. No other injuries were sustained. Sxs are mild in severity. Touching area makes sxs worse. Nothing makes sxs better. - History of Current Complaint Chief Complaint: EDBurnSmokeInh Time Seen by Provider: 03/22/19 16:22 Stated Complaint: BURN ON LT HAND PER PT Hx Obtained From: Patient Hx Last Menstrual Period: 08/27/18 Pain Intensity: 10 - Allergy/Home Medications Allergies/Adverse Reactions: Allergies Allergy/AdvReac Type Severity Reaction Status Date / Time No Known Allergies Allergy Verified 03/22/19 16:20 PMH/Surg Hx/FS Hx/Imm Hx Previously Healthy: Yes Endocrine/Hematology History: Denies: Hx Anticoagulant Therapy, Hx Blood Disorders, Hx Diabetes, Hx Thyroid Disease, Hx Unexplained Bleeding Cardiovascular History: Denies: Hx Congestive Heart Failure, Hx Deep Vein Thrombosis, Hx Hypertension , Hx Myocardial Infarction, Hx Pacemaker/ICD, Other Cardiovascular Problems/ Disorders Respiratory History: Reports: Hx Asthma - childhood asthma, recurred 6 yrs ago after of son, Hx Chronic Obstructive Pulmonary Disease (COPD) - "bronchitis 2 x a year" + smoking and CXR + obstructive dz Denies: Hx Lung Cancer, Hx Pneumonia, Hx Pulmonary Embolism GI History: Denies: Hx Gall Bladder Disease, Hx Gastrointestinal Bleed, Hx Ulcer, Hx Urosepsis History: Reports: Other Problems/Disorders - Essure in place Denies: Hx Kidney Stones, Hx Renal Disease Sensory History: Reports: Hx Contacts or Glasses Denies: Hx Hearing Aid Opthamlomology History: Reports: Hx Contacts or Glasses Neurological History: Reports: Hx Migraine Denies: Hx Dementia, Hx Seizures, Hx Transient Ischemic Attacks (TIA) Psychiatric History: Reports: Hx Anxiety, Hx Depression, Hx Post Traumatic Stress Disorder, Hx Bipolar Disorder Denies: Hx Schizophrenia, Hx of Violent Episodes Against Others - Cancer History Cancer Type, Location and Year: None reported - Surgical History Surgery Procedure, Year, and Place: Ceserian section x3. cholecystectomy. 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 Denies: Hx Clostridium Difficile, Hx Hepatitis, Hx Human Immunodeficiency Virus (HIV), Hx Shingles, Hx Tuberculosis, Hx Known/Suspected VRE, History Other Infectious Disease, Traveled Outside the [place] in Last 30 Days - Family History Known Family History: Positive: Diabetes, Other - cancer, Non-Contributory Negative: Cardiac Disease, Hypertension - Social History Occupation: Unemployed Lives: With Family Alcohol Use: Occasionally Alcohol Amount: "I don't like ETOH" Hx Substance Use: Yes Substance Use Type: Reports: Marijuana Substance Use Comment - Amount & Last Used: Pt has medical marijuana cared Hx Tobacco Use: Yes Smoking Status (MU): Light Every Day Tobacco Smoker Type: Cigarettes Amount Used/How Often: 1/2 PPD Have You Smoked in the Last Year: Yes Review of Systems Positive: Other - burn to left lower arm. Neurological: Negative Negative: Weakness, Paresthesia, Numbness All Other Systems Reviewed And Are Negative: Yes Physical Exam Triage Information Reviewed: Yes Vital Signs On Initial Exam: Initial Vitals Temp Pulse Resp BP Pulse Ox 97.8 F 98 20 140/102 98 03/22/19 16:17 03/22/19 16:17 03/22/19 16:17 03/22/19 16:17 03/22/19 16:17 Vital Signs Reviewed: Yes Appearance: Positive: Well-Appearing - Pt. sitting on chair with frozen meat to left arm. Tearful. Skin: Positive: Warm, Dry Head/Face: Positive: Normal Head/Face Inspection Eyes: Positive: Normal, EOMI Neck: Positive: Supple Musculoskeletal: Positive: Other - Superficial erythema noted to distal left forearm extending mildly to dorsal thumb. Full ROM. No blistering. No circumferential erythema. < 1%. Neurological: Positive: Normal, CN Intact II-III Psychiatric: Positive: Affect/Mood Appropriate Procedures - Sedation Patient Received Moderate/Deep Sedation with Procedure: No Diagnostics - Vital Signs Vital Signs Temp Pulse Resp BP Pulse Ox 03/22/19 16:17 97.8 F 98 20 140/102 98 - Laboratory Lab Statement: Any lab studies that have been ordered have been reviewed, and results considered in the medical decision making process. Course/Dx - Course Course Of Treatment: Patient with superficial, first-degree burn to the left lower arm. Ibuprofen given for pain. Bacitracin and non-dressing placed. Will have patient follow-up with PCP for wound check in 2-3 days. Naproxen prescribed for pain. Advised cool compresses. Return to the ER for blistering , increased pain and redness, drainage or if concerns. Patient understands and agrees with plan. - Diagnoses Provider Diagnoses: First degree burn Discharge ED - Sign-Out/Discharge Documenting (check all that apply): Patient Departure - Discharge Plan Condition: Good Disposition: HOME Prescriptions: Naproxen [Naproxen 500 mg tab] 500 mg PO BID #20 tablet Patient Education Materials: Superficial Burn (ED) Referrals: Lupis Chou MD [Primary Care Provider] - Additional Instructions: Please follow up with your PCP in 2-3 days for wound check Keep area clean and dry Wash with warm soap and water Naproxen as directed for pain Cool compresses Return to ER for increased pain, redness, blistering, yellow/foul drainage or if concerned. - Billing Disposition and Condition Condition: GOOD Disposition: Home
[2019-03-22] MEDS ORDERED: Bacitracin OINTMENT* 0.5% 0.5 oz TUBE TOPICAL ONE (17:05)
[2019-03-22 17:32] VITALS: BP 139/89
== END 2019-03-22 17:25 | disposition home or self-care (01) ==
LOC: ED 16:09
DX: T22.10XA Burn of first degree of shoulder and upper limb, except wrist and hand, unspecified site, initial encounter (principal); X10.2XXA Contact with fats and cooking oils, initial encounter; Y93.G3 Activity, cooking and baking; Y99.9 Unspecified external cause status; F17.210 Nicotine dependence, cigarettes, uncomplicated
CPT/HCPCS: 99282; A9270-GY